=== PATIENT | male | born 1950 | race Caucasian/White ===

== ENCOUNTER 2020-04-28 16:58 | Emergency (ER) | payer MEDICARE, SELFPAY ==
--- NOTE | 2020-04-28 | XR_ITS ---
EXAMINATION: XR KNEE, LEFT CLINICAL INFORMATION: Pain status post knee injury COMPARISON: Radiographs of right knee 08/21/2014 TECHNIQUE: Four views of the left knee. FINDINGS: Generalized osteopenia is present. No acute fracture is seen. No significant joint space narrowing is seen. Small amount of degenerative changes present at the at the patellofemoral joint. No significant joint effusion is present. XR/XR knee LT 4V IMPRESSION: No acute injury left knee. Mild degenerative change in the patellofemoral compartment
[2020-04-28 18:02] VITALS: BP 168/90; PULSE 85; RESP 16; TEMP 36.7; O2SAT 97; BMI 29.1
--- NOTE | 2020-04-28 19:08 | ED.LOWEXIN ---
HPI - Extremity Injury (Lower) General Chief Complaint: Extremity Injury, Lower Stated Complaint: Knee Inj Time Seen by Provider: 04/28/20 18:16 Source: patient Mode of arrival: ambulatory Limitations: no limitations History of Present Illness HPI Narrative: patient presents to ED for left knee pain after falling onto knee a week ago. Patient states he tripped and hit his knee. Patient denies falling to the ground, hitting head, loss of consciousness, abdominal pain, rectal bleeding, bloody urine, chest pain, shortness of breath, dizziness, or weakness. Related Data Previous Rx's Medication Instructions Recorded ibuprofen 400 mg PO Q6H PRN #28 tab 04/28/20 Allergies Allergy/AdvReac Type Severity Reaction Status Date / Time No Known Allergies Allergy Verified 04/28/20 18:14 [No Known Allergies*] Review of Systems Review of Systems: Yes all other systems are reviewed and are negative Constitutional: Constitutional: Reports as per HPI and Reports no additional constitutional complaints Eyes: Eyes: Reports as per HPI and Reports no additional eye complaints ENT: Reports system reviewed and no additional complaints, except as documented and Reports as per HPI Cardiovascular: Cardiovascular: Reports as per HPI and Reports no additional cardiovascular complaints Respiratory: Respiratory: Reports as per HPI and Reports no additional respiratory complaints Gastrointestinal: Gastrointestinal: Reports as per HPI and Reports no additional gastrointestinal complaints Genitourinary: Genitourinary: Reports no additional male genitourinary complaints and Reports as per HPI Musculoskeletal: Musculoskeletal: Reports no additional musculoskeletal complaints and Reports as per HPI Comments: Left knee pain Neurologic: Reports system reviewed and no additional complaints, except as documented and Reports as per HPI Psychiatric: Psychiatric: Reports no additional psychiatric complaints and Reports as per HPI [facility] Past Medical History Medical History (Updated 04/28/20 @ 19:13 by CARRIE Pugh) Diabetes HTN (hypertension) Social History Social History Advance Directives: No Advance Directives Information Provided: No Physical Exam Vital Signs: Vital Signs: Last Vital Signs Temp 98.1 F 04/28/20 18:02 Pulse 85 04/28/20 18:02 Resp 16 04/28/20 18:02 BP 168/90 H 04/28/20 18:02 Pulse Ox 97 04/28/20 18:02 Body Mass Index 29.1 Const: General: cooperative, healthy appearing, comfortable, no acute distress and well developed Orientation/consciousness: oriented to person, oriented to place, oriented to time and patient oriented x3 HENMT: Head: Yes normal to inspection, Yes No palpable skull fracture present, Yes atraumatic, No abrasion, No Acrocyanosis present, No Akbar's sign, No contusion, No cranial bruits, No hematoma, No laceration, No occipital foramen tenderness, No palpable skull fracture, No raccoon eyes, No scalp tenderness, No Temporal artery tenderness present and No periorbital ecchymosis Eyes: General: appearance normal, both eyes and all related structures Visual Kemp: normal visual kemp by confrontation Neck: Neck: Yes normal visual inspection, Yes full ROM, Yes no lymphadenopathy, Yes no meningeal signs and No tender Chest: Chest palpation & inspection: normal inspection of the chest, normal palpation of entire chest wall and no localized rib tenderness Resp: Effort & Inspection: normal respiratory effort and able to speak in complete sentences Cardio: Jugular venous distension: no JVD Heart sounds: S1 normal heart sound present and S2 normal heart sound present GI: Inspection: Yes normal to inspection and No abdominal wall ecchymosis Palpation (GI): Soft to palpation, not firm, nontender, no guarding and not rigid : General: No CVA tenderness and Yes no CVA tenderness Back/Spine/Pelvis: Back: no CVA tenderness, No CVA tenderness and No back tenderness Skin: General skin exam: no rashes or lesions noted Neuro: General: oriented to person, oriented to place, oriented to time, patient oriented x3, gait normal, no meningeal signs and CN's II-XI intact bilaterally Cranial nerves: Yes CN's II-XII intact bilaterally Extrem: Other: positive for left knee tenderness on palpation. Negative for any swelling, redness, warmth, or deformity. Rest of bilateral lower extremities negative for any ecchymosis, tenderness. Vascular neuro and motor exam intact both lower extremities. Psych: Appearance: grossly normal, well kempt and not disheveled Course Course Course Narrative: Patient will have x-ray of left knee to rule out any dislocation or fracture although very likely due to patient walk on his own. Reevaluation(s) Reevaluation #1: X-ray negative for any fracture. X-ray shows arthritis. patient ready for discharge Time: 19:12 MDM - Extremity Injury (Lower) [facility] Narrative Medical decision making narrative: left knee contusion Discharge Plan Discharge Clinical Impression: Contusion of knee Patient Disposition: Home, Self-Care Instructions: Contusion in Adults (ED), Arthritis (ED) Additional Instructions: return to the ED for any swelling of lower extremity, redness, warmth, fever, chills, chest pain, shortness of breath, red streaks, numbness / tingling lower extremity, or any other concerning symptoms. Please follow-up with the PCP. please follow-up with your PCP Prescriptions: New ibuprofen 400 mg tablet 400 mg PO Q6H PRN (Reason: pain) Qty: 28 RF: 0 Interventions: ED Discharge Assessment Last Done: 04/28/20 20:13 Discharge Date/Time: 04/28/20 20:16 Print Language: Uzbek
[2020-04-28] MEDS: Ibuprofen 800 MG TABLET PO (19:14)
== END 2020-04-28 20:16 | disposition home or self-care (01) ==
PROVIDERS: Emergency Provider Internal Medicine
DX: S89.92XA Unspecified injury of left lower leg, initial encounter (principal); M25.562 Pain in left knee; W01.0XXA Fall on same level from slipping, tripping and stumbling without subsequent striking against object, initial encounter; Y93.9 Activity, unspecified; Y92.9 Unspecified place or not applicable; Y99.9 Unspecified external cause status
CPT/HCPCS: 73564; 99283

== ENCOUNTER 2020-05-13 08:25 | Outpatient (REF) | payer MEDICARE, SELFPAY ==
[2020-05-13 10:59] LABS: Vitamin D 25-OH Total 9.6 ng/mL (>30)
[2020-05-13 11:13] LABS: Folate 5.7 ng/mL (> or = 4.0); Vitamin B12 838 pg/mL (200-900)
== END 2020-05-13 08:26 | disposition home or self-care (01) ==
LOC: HO.10HDL 08:25
DX: D64.9 Anemia, unspecified (principal)
CPT/HCPCS: 82306; 82607; 82746

== ENCOUNTER 2020-07-17 07:29 | Emergency (ER) | payer MEDICARE, SELFPAY ==
[2020-07-17 07:49] VITALS: BP 178/70; PULSE 73; RESP 18; TEMP 36.5; O2SAT 96; BMI 29.9
--- NOTE | 2020-07-17 08:09 | XR_ITS ---
EXAMINATION: RADIOGRAPHS RIGHT HAND CLINICAL INFORMATION: Swelling and pain COMPARISON: Right hand x-rays 02/15/2019 TECHNIQUE: 4 views of the right hand were obtained. FINDINGS: There is diffuse osteopenia. Visualized portion of the distal radius and ulna demonstrate no fracture. Carpal rows are well aligned. No carpal, metacarpal or phalangeal fracture appreciated. There are mild to moderate degenerative changes of the first carpal metacarpal joint with moderate degenerative changes of the first and second MCP joints. Erosive changes are noted at the second MCP joint. There are mild diffuse degenerative changes of the IP joints. Mild soft tissue swelling of the lateral hand. XR/XR hand wrist RT IMPRESSION: -Dense diffuse osteopenia. -Moderate degenerative changes. -No fracture.
--- NOTE | 2020-07-17 08:09 | US_ITS ---
EXAMINATION: US VENOUS WITH DOPPLER UPPER EXTREMITY, RIGHT CLINICAL INFORMATION: Pain and swelling COMPARISON: None TECHNIQUE: Ultrasound of the upper extremity is performed using compression sonography and color and pulse Doppler flow with assessment of augmentation of flow. There is also imaging and Doppler assessment of the jugular and subclavian veins. Spectral analysis with color-flow imaging is performed. FINDINGS: Respiratory variation, normal compression, and augmented flow are noted throughout the upper extremity including the axillary, brachial, cubital, and radial and ulnar veins. There is normal flow in the internal jugular and subclavian veins. There is no visible deep or superficial thrombophlebitis. If the patient's symptoms progress, a followup ultrasound in 5 -7 days might be of value to exclude proximal propagation from a nonvisualized distal arm vein. US/US venous duplex UE RT IMPRESSION: No DVT demonstrated in the right upper extremity
--- NOTE | 2020-07-17 08:33 | ED_ITS ---
HPI - Extremity Problem General Chief complaint: Extremity Injury, Upper Stated complaint: r hand swelling Time Seen by Provider: 07/17/20 08:02 Source: patient Mode of arrival: ambulatory History of Present Illness HPI Narrative: 70-year-old male with a past medical history of diabetes, hypertension, DVT/PE, presenting to the ED complaining of right arm swelling since . Reports pain with ROM, and decreased ROM secondary to swelling. Reports associated tingling. Denies trauma/falls/injury, fever, chills, SOB, LE edema. Patient does not take anticoagulation MD Complaint: extremity swelling Related Data Previous Rx's Medication Instructions Recorded ibuprofen 400 mg PO Q6H PRN #28 tab 04/28/20 Allergies Allergy/AdvReac Type Severity Reaction Status Date / Time No Known Allergies Allergy Verified 04/28/20 18:14 [No Known Allergies*] Review of Systems Review of Systems: Constitutional: No Weight loss, No Fever, No Chills Cardiovascular: No Chest Pain, No SOB Respiratory: No Cough, No Sputum, No Wheezing Musculoskeletal: + joint pain, No Myalgias, +Joint Swelling Skin: No Skin Lesions, No rash Neuro: No Weakness,+tingling, No Paresthesias Yes all other systems are reviewed and are negative [facility] Past Medical History Attestation statement: The following information was validated with the patient. Medical History (Updated 07/17/20 @ 11:27 by CARRIE Arzate) Diabetes HTN (hypertension) Social History Social History Advance Directives: No Advance Directives Information Provided: No Physical Exam Vital Signs: Vital Signs: Last Vital Signs Temp 97.7 F 07/17/20 07:49 Pulse 73 07/17/20 07:49 Resp 18 07/17/20 07:49 BP 178/70 H 07/17/20 07:49 Pulse Ox 96 07/17/20 07:49 Body Mass Index 29.9 Const: General: cooperative and healthy appearing Orientation/consciousness: patient oriented x3 Limitations: no limitations HENMT: Head: Yes normal to inspection Ears: hearing grossly normal bilaterally General nose exam: Normal external nose present Face and sinus: Yes normal facial exam Eyes: General: appearance normal, both eyes and all related structures EOM: EOMs intact bilaterally Neck: Neck: Yes normal visual inspection and Yes no meningeal signs Resp: Effort & Inspection: normal respiratory effort, no stridor and not tachypneic Cardio: Rate: regular rate Peripheral pulses: radial pulses present Skin: Rashes: no rashes Wounds: no wounds Neuro: General: patient oriented x3 and no meningeal signs Gait exam (Neuro): Normal gait present Extrem: Other: RUE with notable edema. Warm to touch with ttp to wrist and hand. No erythema/streaking/fluctuance or induration. Neurovascularly intact. Range of motion decreased secondary to pain/swelling. Course Course Course Narrative: * No leukocytosis, H&H low at baseline. CRP and ESR elevated. XR hand wrist RT IMPRESSION: -Dense diffuse osteopenia. -Moderate degenerative changes. -No fracture. US venous duplex UE RT IMPRESSION: No DVT demonstrated in the right upper extremity * 0950 -case discussed with Dr. Braswell who evaluated patient. Will obtain CTA of the chest to rule out axillary vein thrombosis or mass effect causing lymphedema CT angio chest IMPRESSION: 1. No evidence of any right axillary or superior mediastinal soft tissue mass. Suboptimal evaluation for presence or absence of right axillary vein thrombosis due to nonopacification of the right upper extremity visualized veins. 2. Suboptimal evaluation for presence or absence of pulmonary thromboembolism due to missed bolus timing. 3. Multiple multilobar sub-5 mm both calcified as well as noncalcified scattered lung nodules are present bilaterally, most consistent with granulomatous disease. 4. Asymmetric elevated right hemidiaphragm producing compressive atelectatic changes within the right lung base. Note is also made of anterior superior interposition of the right sided hemicolon between the liver and the diaphragm and surgically absent gallbladder. 5. Large approximately 9.5 cm simple appearing cortical renal cyst at the superior pole of the left kidney. >> results discussed with patient. Will initiate short course of steroids and outpatient follow-up with PCP MDM - Extremity (Nontraumatic) MDM Narrative Medical decision making narrative: 70-year-old male with a past medical history of diabetes, hypertension, DVT/PE, presenting to the ED complaining of right arm swelling since . On exam VSS, NAD/well-appearing, physical exam as above. Concern for occult fracture vs DVT vs edema or venous compression. Lower concern for septic joint/arthritis without joint effusion/fever/chills or erythema. Plan: Labs, x-ray, venous duplex, re-evaluate Lab Data Result diagrams: 07/17/20 08:28 07/17/20 08:28 Labs: Lab Results 07/17/20 07/17/20 07/17/20 Range/Units 08:28 08:28 08:28 WBC 6.9 (4.8-10.8) X10*3/uL RBC 3.33 L (4.60-5.80) X10*6/uL Hgb 9.9 L (14.0-18.0) g/dl Hct 31.0 L (42-52) % MCV 93.1 (80-98) fL MCH 29.7 (27.0-33.0) pg MCHC 31.9 (31.0-36.0) g/dl RDW 12.8 (11.0-16.0) % Plt Count 237 (160-400) X10*3/uL MPV 12.3 (9.4-12.4) fL Immature Gran % (Auto) 0.4 (0.0-0.4) % Neut % (Auto) 77.2 H (45-73) % Lymph % (Auto) 12.7 L (20-40) % [place] % (Auto) 8.8 (2-11) % Eos % (Auto) 0.3 (0-4) % Baso % (Auto) 0.6 (0-2) % Lymph # (Auto) 0.9 L (1.2-4.9) X10*3/uL [place] # (Auto) 0.6 (0.1-1.2) X10*3/uL Eos # (Auto) 0.0 (0.0-0.4) X10*3/uL Baso # (Auto) 0.0 (0.0-0.2) X10*3/uL Abs Immat Gran (auto) 0.03 (0.00-0.03) X10*3/uL Absolute Neuts (auto) 5.3 (2.0-8.3) X10*3/uL Absolute Nucleated RBC 0.000 (0.0-0.012) X10*3/uL Nucleated RBC % (auto) 0.0 (0.0-0.2) /100WBC ESR 72 H (0-15) MM/HR PT (10.8-13.0) SEC INR (0.9-1.1) APTT (24.1-38.0) SEC Sodium 143 (135-145) mmol/L Potassium 4.1 (3.3-5.1) mmol/l Chloride 109 H (96-108) mmol/L Carbon Dioxide 21 L (22-29) mmol/L Anion Gap 17 (12-20) BUN 22 H (9-16) mg/dL Creatinine 1.11 (0.5-1.4) mg/dL Estim Creat Clear Calc 72.6 Estimated GFR > 60 Random Glucose 138 H (60-115) mg/dL Calcium 8.5 (8.4-10.2) mg/dL C-Reactive Protein 7.36 H (< or = 0.50) mg/dL B-Natriuretic Peptide (<100) pg/mL 07/17/20 07/17/20 Range/Units 08:28 08:29 WBC (4.8-10.8) X10*3/uL RBC (4.60-5.80) X10*6/uL Hgb (14.0-18.0) g/dl Hct (42-52) % MCV (80-98) fL MCH (27.0-33.0) pg MCHC (31.0-36.0) g/dl RDW (11.0-16.0) % Plt Count (160-400) X10*3/uL MPV (9.4-12.4) fL Immature Gran % (Auto) (0.0-0.4) % Neut % (Auto) (45-73) % Lymph % (Auto) (20-40) % [place] % (Auto) (2-11) % Eos % (Auto) (0-4) % Baso % (Auto) (0-2) % Lymph # (Auto) (1.2-4.9) X10*3/uL [place] # (Auto) (0.1-1.2) X10*3/uL Eos # (Auto) (0.0-0.4) X10*3/uL Baso # (Auto) (0.0-0.2) X10*3/uL Abs Immat Gran (auto) (0.00-0.03) X10*3/uL Absolute Neuts (auto) (2.0-8.3) X10*3/uL Absolute Nucleated RBC (0.0-0.012) X10*3/uL Nucleated RBC % (auto) (0.0-0.2) /100WBC ESR (0-15) MM/HR PT 16.4 H (10.8-13.0) SEC INR 1.4 H (0.9-1.1) APTT 38.9 H (24.1-38.0) SEC Sodium (135-145) mmol/L Potassium (3.3-5.1) mmol/l Chloride (96-108) mmol/L Carbon Dioxide (22-29) mmol/L Anion Gap (12-20) BUN (9-16) mg/dL Creatinine (0.5-1.4) mg/dL Estim Creat Clear Calc Estimated GFR Random Glucose (60-115) mg/dL Calcium (8.4-10.2) mg/dL C-Reactive Protein (< or = 0.50) mg/dL B-Natriuretic Peptide 39 (<100) pg/mL Discharge Plan Discharge Clinical Impression: Arm edema Patient Disposition: Home, Self-Care Instructions: Edema (ED) Additional Instructions: Blood work showed elevation in nonspecific inflammatory markers Your and CT did not show anything concerning. Start taking prednisone as prescribed which will help with the swelling. You need to have close follow-up with her primary care doctor in the next 1-2 days. If the swelling persists or worsen, pain becomes unbearable, your arm becomes red, or you spike fevers return to the ED immediately Prescriptions: No Action ibuprofen 400 mg tablet 400 mg PO Q6H PRN (Reason: pain) Qty: 28 RF: 0 Referrals: Physician,None [Primary Care Provider] - 2 days
[2020-07-17 08:42] LABS: MANUAL DIFF FLAG NO
[2020-07-17 08:43] LABS: Basophils Percent Auto 0.6 % (0-2); Eosinophils Percent Auto 0.3 % (0-4); Hemoglobin 9.9 g/dl (14.0-18.0); Imm Gran Abs Auto 0.03 X10*3/uL (0.00-0.03); Imm Gran Pct Auto 0.4 % (0.0-0.4); Lymphocytes Absolute Auto 0.9 X10*3/uL (1.2-4.9); Lymphocytes Percent Auto 12.7 % (20-40); Mean Corpuscular HGB Conc 31.9 g/dl (31.0-36.0); Mean Corpuscular Hemoglobin 29.7 pg (27.0-33.0); Mean Corpuscular Volume 93.1 fL (80-98); Mean Platelet Volume 12.3 fL (9.4-12.4); Monocytes Absolute Auto 0.6 X10*3/uL (0.1-1.2); Monocytes Percent Auto 8.8 % (2-11); Neutrophils Absolute Auto 5.3 X10*3/uL (2.0-8.3); Neutrophils Percent Auto 77.2 % (45-73); Platelet Count 237 X10*3/uL (160-400); Red Blood Count 3.33 X10*6/uL (4.60-5.80); Red Cell Distribution Width 12.8 % (11.0-16.0); White Blood Count 6.9 X10*3/uL (4.8-10.8)
[2020-07-17 08:51] LABS: INTERNATIONAL NORM RATIO 1.4 (0.9-1.1); Prothrombin Time 16.4 SEC (10.8-13.0)
[2020-07-17 08:54] LABS: Partial Thromboplastin Time 38.9 SEC (24.1-38.0)
[2020-07-17 09:02] LABS: Anion Gap 17 (12-20); Blood Urea Nitrogen 22 mg/dL (9-16); C Reactive Protein 7.36 mg/dL (< or = 0.50); Calcium 8.5 mg/dL (8.4-10.2); Carbon Dioxide 21 mmol/L (22-29); Chloride 109 mmol/L (96-108); Creatinine Clr Calc Pharmacy 72.6; Estimated Glomerular Filt Rate > 60; Glucose Random 138 mg/dL (60-115); Potassium 4.1 mmol/l (3.3-5.1); Sodium 143 mmol/L (135-145)
[2020-07-17 09:22] LABS: B Type Natriuretic Peptide 39 pg/mL (<100)
[2020-07-17 09:40] LABS: Erythrocyte Sedimentation Rate 72 MM/HR (0-15)
--- NOTE | 2020-07-17 09:47 | CT_ITS ---
EXAMINATION: CT ANGIOGRAM CHEST CLINICAL INFORMATION: Right upper extremity pain and swelling. Suspected right axillary vein thrombosis. COMPARISON: Right upper extremity DVT study done earlier today. TECHNIQUE: Multiple axial images were obtained through the chest after the administration of 70 mL of Omnipaque 350 intravenous contrast. Extensive vascular post-processing including two-dimensional and three-dimensional reformatted images were created and reviewed on an independent workstation. This CT examination was performed using dose optimization techniques as appropriate, variously including the following: *Automated exposure control *Adjustment of mA and/or kV according to patient size (this includes techniques or standardized protocols for targeted exams where dose is matched to indication/reason for exam; i.e. extremities or head) *Use of iterative reconstruction technique DLP: 485.21 mGy-cm FINDINGS: There are multiple multilobar sub-5 mm both calcific as well as noncalcified lung nodules seen bilaterally, most consistent with granulomatous disease. Asymmetric elevated right hemidiaphragm is noted producing compressive atelectatic changes within the right lung base. No evidence of any mediastinal or right axillary mass identified. Presence or absence of right axillary vein thrombus cannot be evaluated due to suboptimal opacification of the visualized part of the right upper extremity venous tree. Contrast was injected through left upper extremity. Presence or absence of pulmonary thromboembolism is also indeterminate due to suboptimal bolus timing. Atherosclerotic disease is present within the aorta and is branches including coronary artery calcifications. There are no pathologically enlarged mediastinal and/or hilar lymphadenopathy present. No evidence of any pleural or pericardial effusion seen. No evidence of any axillary lymphadenopathy or axillary mass on either side. The visualized upper abdomen is remarkable for anterior superior interposition of the right-sided hemicolon between the liver and the diaphragm and surgically absent gallbladder. Lobulated large cyst is noted within the superior pole of the left kidney, measures approximately 9.5 cm with Hounsfield value of 2.3. The visualized skeleton shows moderate multilevel degenerative spondylosis of the thoracic spine and mild to moderate diffuse osteopenia. CT/CT angio chest IMPRESSION: 1. No evidence of any right axillary or superior mediastinal soft tissue mass. Suboptimal evaluation for presence or absence of right axillary vein thrombosis due to nonopacification of the right upper extremity visualized veins. 2. Suboptimal evaluation for presence or absence of pulmonary thromboembolism due to missed bolus timing. 3. Multiple multilobar sub-5 mm both calcified as well as noncalcified scattered lung nodules are present bilaterally, most consistent with granulomatous disease. 4. Asymmetric elevated right hemidiaphragm producing compressive atelectatic changes within the right lung base. Note is also made of anterior superior interposition of the right sided hemicolon between the liver and the diaphragm and surgically absent gallbladder. 5. Large approximately 9.5 cm simple appearing cortical renal cyst at the superior pole of the left kidney.
[2020-07-17] MEDS: iohexoL 350 MG/ML 100 ML INFUS..BTL IV (10:45)
[2020-07-17] MEDS: predniSONE 20 MG TABLET 40 MG PO (12:04)
== END 2020-07-17 12:12 | disposition home or self-care (01) ==
PROVIDERS: Physician Assistant; Emergency Provider Internal Medicine
DX: M79.641 Pain in right hand (principal); R60.0 Localized edema; Z79.899 Other long term (current) drug therapy
CPT/HCPCS: 36415; 71275; 73110; 73130; 80048; 83880; 85025; 85610; 85652; 85730; 86140; 93971; 99283; 99284; Q9967

== ENCOUNTER 2020-09-15 16:35 | Inpatient (IN) | payer MEDICARE, SELFPAY ==
[2020-09-15] VITALS (7 sets, daily range): BP systolic 159–178; BP diastolic 60–73; PULSE 73–96; RESP 14–22; TEMP 36.9–38.2; O2SAT 93–95; BMI 28.4
--- NOTE | ~2020-09-15 | US_ITS ---
EXAMINATION: US VENOUS ULTRASOUND WITH DOPPLER LOWER EXTREMITY, BILATERAL CLINICAL INFORMATION: Bilateral lower extremity edema. Question DVT. History of prior DVT. COMPARISON: None TECHNIQUE: Ultrasound of the deep veins is performed from the hip to the calf with compression sonography and color and pulse Doppler assessment. Spectral analysis with color-flow imaging is performed. FINDINGS: RIGHT: There is normal venous compression and respiratory variation and augmented flow. The visualized common femoral vein, superficial femoral vein, profunda femoral vein, popliteal vein, and the trifurcation region shows no evidence of deep venous thrombosis. There is a popliteal fossa cyst which measures 4.9 x 2.5 x 4 cm. Peroneal veins are not seen due to calf edema. LEFT: There is normal venous compression and respiratory variation and augmented flow. The visualized common femoral vein, superficial femoral vein, profunda femoral vein, popliteal vein, and the trifurcation region shows no evidence of deep venous thrombosis. There is no significant popliteal fossa cyst. Peroneal veins are not identified due to calf edema. If the patient's symptoms persist, followup ultrasound in 5 days 7 days might be of value to exclude proximal propagation from a non-visualized calf vein. US/US venous duplex LE BI IMPRESSION: No DVT demonstrated in the bilateral lower extremities.
--- NOTE | ~2020-09-15 | CT_ITS ---
EXAMINATION: CT HEAD WITHOUT CONTRAST CLINICAL INFORMATION: Dizziness. Cough. COMPARISON: CT head 05/03/2011 TECHNIQUE: Contiguous axial imaging was performed from the skull base to vertex without intravenous administration of contrast. Coronal and sagittal reformatted images are performed at the CT scanner. [This CT examination was performed using dose optimization techniques as appropriate, variously including the following: *Automated exposure control *Adjustment of mA and/or kV according to patient size (this includes techniques or standardized protocols for targeted exams where dose is matched to indication/reason for exam; i.e. extremities or head) *Use of iterative reconstruction technique] DLP: 746 mGy-cm. FINDINGS: There is no evidence of acute intracranial hemorrhage or territorial infarction. No abnormal mass-effect or midline shift is seen. Brown to white matter differentiation is well preserved. No extra-axial fluid collections are identified. There is age-appropriate atrophy with prominence of the ventricles and the sulci and hypodensity of the periventricular white matter due to chronic small vessel ischemic disease. There are vascular calcifications of the internal carotid arteries bilaterally. There is no osseous abnormality. The sphenoid sinus is entirely opacified. This has progressed since CAT scan 05/03/2011. There are faint calcifications in the sphenoid sinus indicating chronic sinus disease including possibility of fungal infection. There is a small air-fluid level in the dependent left maxillary sinus. The mastoid air cells and middle ear cavities are normally aerated. CT/CT head/brain wo con IMPRESSION: 1. No acute intracranial abnormality. 2. Chronic sinus disease in sphenoid sinus. Air-fluid level in the left maxillary sinus.
--- NOTE | ~2020-09-15 | CT_ITS ---
EXAMINATION: CT ANGIOGRAM OF THE CHEST WITH AND WITHOUT CONTRAST (CT PULMONARY ANGIOGRAM FOR PE) CLINICAL INFORMATION: Reason for Exam pt c dizziness and cough + covid COMPARISON: None TECHNIQUE: Prior to contrast administration, noncontrast localization images were obtained. Subsequently, multidetector volumetric imaging was performed from the thoracic inlet to below the diaphragms following the administration of 71 mL Omnipaque 350 intravenous contrast. No contrast reaction reported Sagittal, coronal, and MIP oblique sagittal reformatted images were obtained on the CT workstation, uploaded to PACS, and reviewed. This CT examination was performed using dose optimization techniques as appropriate, variously including the following: *Automated exposure control *Adjustment of mA and/or kV according to patient size (this includes techniques or standardized protocols for targeted exams where dose is matched to indication/reason for exam; i.e. extremities or head) *Use of iterative reconstruction technique Total exam dose-length product 448 mGy-cm FINDINGS: QUALITY OF STUDY/CONTRAST BOLUS: Satisfactory. PULMONARY ARTERIES: No central or segmental pulmonary emboli. THORACIC AORTA: No aneurysm or dissection. LUNG: The lungs are well expanded with elevation of right hemidiaphragm and right basilar atelectasis. PLEURA: No pleural effusion or pneumothorax. MEDIASTINUM: The thyroid lobes are symmetrical and normal. The central trachea and bronchi are widely patent. No evidence of septal bowing or right heart strain. CHEST WALL/AXILLA: No axillary or internal mammary lymphadenopathy. OSSEOUS STRUCTURES: There is no lytic or sclerotic process. There is ventral spondylosis throughout dorsal spine. UPPER ABDOMEN: Visualized liver, spleen and pancreas is unremarkable. No reflux of contrast into the hepatic veins to suggest elevated right heart pressures. CT/CT angio chest PE protocol IMPRESSION: No evidence of PE. There is no evidence of aortic dissection or aneurysm. Elevated right hemidiaphragm with right basilar atelectasis VTE: negative
[2020-09-15 17:13] LABS: Basophils Percent Auto 0.3 % (0-2); Hematocrit 32.7 % (42-52); Hemoglobin 10.5 g/dl (14.0-18.0); Imm Gran Abs Auto 0.01 X10*3/uL (0.00-0.03); Imm Gran Pct Auto 0.3 % (0.0-0.4); Lymphocytes Absolute Auto 0.6 X10*3/uL (1.2-4.9); Lymphocytes Percent Auto 16.7 % (20-40); MANUAL DIFF FLAG SCAN; Mean Corpuscular HGB Conc 32.1 g/dl (31.0-36.0); Mean Corpuscular Hemoglobin 29.7 pg (27.0-33.0); Mean Corpuscular Volume 92.4 fL (80-98); Mean Platelet Volume 12.9 fL (9.4-12.4); Monocytes Absolute Auto 0.4 X10*3/uL (0.1-1.2); Monocytes Percent Auto 9.9 % (2-11); Neutrophils Absolute Auto 2.6 X10*3/uL (2.0-8.3); Neutrophils Percent Auto 72.8 % (45-73); Platelet Count 110 X10*3/uL (160-400); Red Blood Count 3.54 X10*6/uL (4.60-5.80); Red Cell Distribution Width 13.8 % (11.0-16.0); SCAN SMEAR FLAG 1; White Blood Count 3.5 X10*3/uL (4.8-10.8)
[2020-09-15 17:28] LABS: COVID-19 Test Positive (Negative)
--- NOTE | 2020-09-15 17:30 | ECG_ITS ---
Test Reason : DIZZINESS Blood Pressure : / mmHG Vent. Rate : 074 BPM Atrial Rate : 074 BPM P-R Int : 182 ms QRS Dur : 092 ms QT Int : 398 ms P-R-T Axes : 028 -08 046 degrees QTc Int : 441 ms Normal sinus rhythm Minimal voltage criteria for LVH, may be normal variant Nonspecific ST abnormality Abnormal ECG When compared with ECG of 03-OCT-2013 07:36, No significant change was found Referred By: Rosalinda Burrell Electronically Signed By:ABEL MCCARTNEY
[2020-09-15 17:35] LABS: SLIDE REVIEW VERIFIED
[2020-09-15 17:36] LABS: Anion Gap 18 (12-20); Blood Urea Nitrogen 22 mg/dL (9-16); Calcium 8.1 mg/dL (8.4-10.2); Carbon Dioxide 21 mmol/L (22-29); Chloride 107 mmol/L (96-108); Creatinine Clr Calc Pharmacy 70.4; Estimated Glomerular Filt Rate > 60; Glucose Random 130 mg/dL (60-115); Potassium 4.3 mmol/L (3.3-5.1); Sodium 142 mmol/L (135-145)
[2020-09-15 17:44] LABS: INTERNATIONAL NORM RATIO 1.1 (0.9-1.1); Prothrombin Time 13.4 SEC (10.8-13.0)
[2020-09-15 17:47] LABS: Partial Thromboplastin Time 36.7 SEC (24.1-38.0)
[2020-09-15 17:58] LABS: Alanine Aminotransferase 11 U/L (0-40); Alkaline Phosphatase 61 U/L (39-117); Aspartate Amino Transferase 21 U/L (5-37); Bilirubin Direct < 0.2 mg/dL (0.0-0.5); Bilirubin Total 0.2 mg/dL (0.0-1.0); C Reactive Protein 1.42 mg/dL (< or = 0.50); Lactate Dehydrogenase 194 U/L (118-273); Total Protein 6.6 g/dL (6.5-8.0)
[2020-09-15 18:15] LABS: B Type Natriuretic Peptide 40 pg/mL (<100)
--- NOTE | 2020-09-15 18:18 | ED.URI ---
HPI - URI/Sore Throat General Chief Complaint: Upper Respiratory Symptoms Stated Complaint: Fever/SOB Time Seen by Provider: 09/15/20 17:10 Source: patient Mode of arrival: ambulatory Limitations: no limitations History of Present Illness HPI Narrative: 70-year-old male with a past medical history of diabetes, hypertension, PE/DVT in bilateral lower extremity in the past currently on a baby aspirin no other blood thinner, pulmonary granuloma, anemia and chronic weakness/lymphedema of left lower extremity to the ED with complaints of chills, fevers up to 101 at home, dizziness, body aches, sore throat and a dry cough for the past 3 days. Reports that he lives with his nephew his nephew does not have any similar symptoms. Denies recent travel or any sick contacts that he is aware of. Denies any headache, change in vision, nausea/vomiting, jaw pain, paresthesias, chest pain, shortness of breath, dyspnea on exertion, orthopnea, palpitations, abdominal pain, back pain, dysuria, hematuria, diarrhea, constipation or any other symptoms complaints or concerns at this time. MD elicited complaint: cough Onset (ago): day(s) (Three days) Consistency: constant and progressively worsening Severity: moderate Able to tolerate fluids by mouth: Yes Exacerbating factors: nothing Relieving factors: nothing Associated symptoms: fever, chills, myalgias, sore throat and cough Treatments prior to arrival: none Related Data Home Medications Medication Instructions Recorded Confirmed aspirin 81 mg tablet,delayed 81 mg PO DAILY 08/04/20 08/04/20 release ferrous sulfate 325 mg (65 mg 325 mg PO BID 08/04/20 08/04/20 iron) tablet furosemide 40 mg tablet 40 mg PO BID 08/04/20 08/04/20 lisinopril 20 mg tablet 20 mg PO DAILY 08/04/20 08/04/20 Previous Rx's Medication Instructions Recorded ibuprofen 400 mg PO Q6H PRN #28 tab 04/28/20 atenolol 25 mg tablet 25 mg PO DAILY 90 Days #90 tab 08/04/20 pravastatin 20 mg tablet 20 mg PO DAILY 90 Days #90 tab 08/04/20 mecobalamin (vitamin B12) 1,000 1,000 mcg PO DAILY #90 tab 08/16/20 mcg chewable tablet potassium chloride 8 mEq 8 meq PO DAILY 30 Days #30 tab 08/16/20 tablet,extended release metformin 500 mg tablet,extended 500 mg PO QID #360 tab 08/18/20 release 24 hr Allergies Allergy/AdvReac Type Severity Reaction Status Date / Time No Known Allergies Allergy Verified 08/04/20 20:40 [No Known Allergies*] Review of Systems Review of Systems: Constitutional : + Fever, + Chills, + malaise, + Fatigue, No Weight loss, No Night Sweats ENT/Mouth : + Sore throat, No Hearing loss, No Ear Pain, No Nasal Congestion, No Sinus Pain, No Hoarseness, No Rhinorrhea, No Swallowing Difficulty Eyes: No Eye Pain, No Swelling, No Redness, No Foreign Body, No Discharge, No Vision Changes Cardiovascular : No Chest Pain, No SOB, No Dyspnea on Exertion, No Orthopnea, No Edema, No Palpitations Respiratory : + Cough, No Sputum, No Wheezing, No Smoke Exposure, No Dyspnea Gastrointestinal : No Nausea, No Vomiting, No Diarrhea, No Constipation, No abdominal Pain, No Hematochezia, No Melena Genitourinary : no irregular bleeding, No Dysuria, No Urinary Frequency, No Hematuria, No Urinary Incontinence, No Urgency, No Flank Pain, No Urinary Flow Changes, No Hesitancy Musculoskeletal : + Myalgias, No Joint Swelling/pain. No neck pain/stiffness, No back pain Skin : No Skin Lesions, No rash Neuro : + Dizziness, No Weakness, No Numbness, No Paresthesias, No Loss of Consciousness, No Headache Psych : No Anxiety/Panic, No Depression, No SI/HI/AH/VH, No Social Issues, Heme/Lymph: No Bruising, No Bleeding,No Lymphadenopathy Endocrine : No Polyuria, No Polydipsia, No Temperature Intolerance Yes all other systems are reviewed and are negative [facility] Past Medical History Attestation statement: The following information was validated with the patient. Medical History Anemia Benign essential hypertension Diabetes mellitus HTN (hypertension) Overweight (BMI 25.0-29.9) Pulmonary granuloma Pure hypercholesterolemia Social History Social History Alcohol intake: never Smoking Status: Never smoker Advance Directives: No Advance Directives Information Provided: Yes Physical Exam Vital Signs: Vital Signs: Last Vital Signs Temp 100.4 F 09/15/20 20:42 Pulse 79 09/15/20 20:42 Resp 22 H 09/15/20 20:42 BP 163/60 H 09/15/20 20:42 Pulse Ox 94 09/15/20 20:42 Body Mass Index 28.4 Vital signs have been reviewed as normal and appeared to be correct. Blood pressure normal. Heart rate normal. Respiration rate normal. Temperature normal. Oxygen saturation normal. Appearance: Alert. Oriented X3. No acute distress. Head: Normal external exam. Normocephalic. Atraumatic. Able to rotate head bilaterally. Eyes: PERRLA. EOMI. No nystagmus noted. Conjunctiva and sclera normal. Eyelids normal. Corneal reflex normal. ENT: EAC normal. TM's Normal. Hearing normal. Pharynx normal. Uvula midline. tongue midline. Moist mucous membranes. No trismus noted. No drooling noted. No muffled voice noted. No nystagmus noted. Neck: Normal inspection. Neck supple. FROM. No adenopathy. Trachea midline. Thyroid Normal. No meningeal signs. No neck mass noted. CVS: Normal heart rate and rhythm. Heart sound normal. No murmurs noted. Pulses normal throughout. Respiratory: No respiratory distress. Painless inspiration. Breath sounds normal. No wheezes/rales/rhonchi noted. Chest nontender. No accessory muscle usage noted or decreased air movement noted. Abdomen: Soft and nontender. Bowel sounds normal in all 4 quadrants. No distention noted. No organomegaly noted. No visible injury noted. Back: No CVA tenderness. Full range of motion noted. Skin: Skin warm and dry. Normal skin color. Normal skin turgor. No rashes/lesions/lacerations noted. Extremities: No lower extremity edema. Extremities exhibit normal range of motion. Extremities nontender. Able to shrug shoulders bilaterally and keep up against resistance. Neuro: Oriented X 3. No motor deficit. No sensory deficit. Reflexes normal. Moving all extremities. No focal motor deficits. Cranial nerves II-XI intact bilaterally. Facial strength normal. Normal cognition. Speech normal. Gait normal with his cane. To left lower extremity patient has chronic mild weakness otherwise all other extremities all other extremities Strength are 5/5 throughout. No pronator drift. No tremor noted. No fasciculations noted. No rigidity noted. Muscle tone normal throughout. No asterixis noted. Sfliqw-fl-socd test normal. Heel to espinosa test normal. Tandem gait normal. Does not sway with eyes open. Romberg test negative. Rapid alternating movement upper extremity normal. Rapid alternating movement lower extremity normal. Hand drop from overhead Misses face. NIHSS score 0. Course Course Course Narrative: 16:50pm - 70-year-old male with a past medical history of diabetes, hypertension, PE/DVT in bilateral lower extremity in the past currently on a baby aspirin no other blood thinner, pulmonary granuloma, anemia and chronic weakness/lymphedema of left lower extremity to the ED with complaints of chills, fevers up to 101 at home, dizziness, body aches, sore throat and a dry cough for the past 3 days. - On exam patient is alert and oriented x3. Not in any acute distress. Patient mildly hypertensive at 163/68 otherwise all other vitals are within normal limits. Patient has chronic left lower extremity weakness/lymphadenopathy no other weakness or focal neuro deficits are noted at this time. Patient has a normal steady gait with his cane. NIH SS score is 0 at this time due to patient reports his left lower extremity is always weak and is at baseline at this time. No tPA indicated at this time as patient has non disabling symptoms and his symptoms started 3 days ago. Lungs clear to auscultation. CV RRR. Abdomen is soft and nontender. Patient with pitting edema to bilateral lower extremity/lymphedema noted with erythema possibly cellulitic infection versus venous stasis. No calf tenderness noted. - Plan: Labs, chest x-ray, EKG, CT scan of brain, CTA of chest for PE, bilateral venous duplex ultrasound, orthostatic vitals, COVID swab, perform an ambulating pulse oximetry test and re-evaluate. Reevaluation(s) Reevaluation #1: - white blood cell count 3000 - patient with mild anemia similar when compared to prior. - platelet count 110,000 - carbon dioxide 21 - BUN 22 - random glucose 130 - ferritin 315 - troponin 8.9 therefore will re obtained in 3 hours from 1 collected at 20:00pm - CRP 1.42 - patient positive for COVID. - all other labs are within normal limits. - CT scan of brain revealed chronic changes no acute processes noted. - awaiting venous duplex ultrasound, CTA of chest for PE and repeat troponin will re-evaluate. Time: 18:50 Reevaluation #2: - repeat troponin doubled at 13.8. - CTA of chest for PE negative. - venous duplex lower extremity ultrasound negative for any DVT or any other acute processes. - patient now developed a fever of 100.4 and mild tachypneic at 22 otherwise all other vitals remained stable within normal limits. Will obtain blood cultures and lactic acid. This is most likely viral due to patient is positive for COVID although on exam patient has lower extremity erythema which could be cellulitic therefore will give 1 g of Rocephin at this time since the patient is developing a fever and tachypnea. - will plan to admit to Dr. Jean for pancytopenia, elevated troponin, COVID positive. Patient understands agrees with this plan. Time: 21:57 MDM - URI/Sore Throat Medical Records Attestation: I reviewed the patient's medical records. Lab Data Attestation: I reviewed the patient's lab results. Result diagrams: 09/15/20 17:00 09/15/20 17:00 Labs: Lab Results 09/15/20 09/15/20 09/15/20 Range/Units 16:40 17:00 17:00 WBC (4.8-10.8) X10*3/uL RBC (4.60-5.80) X10*6/uL Hgb (14.0-18.0) g/dl Hct (42-52) % MCV (80-98) fL MCH (27.0-33.0) pg MCHC (31.0-36.0) g/dl RDW (11.0-16.0) % Plt Count (160-400) X10*3/uL MPV (9.4-12.4) fL Immature Gran % (Auto) (0.0-0.4) % Neut % (Auto) (45-73) % Lymph % (Auto) (20-40) % [place] % (Auto) (2-11) % Eos % (Auto) (0-4) % Baso % (Auto) (0-2) % Lymph # (Auto) (1.2-4.9) X10*3/uL [place] # (Auto) (0.1-1.2) X10*3/uL Eos # (Auto) (0.0-0.4) X10*3/uL Baso # (Auto) (0.0-0.2) X10*3/uL Abs Immat Gran (auto) (0.00-0.03) X10*3/uL Absolute Neuts (auto) (2.0-8.3) X10*3/uL Absolute Nucleated RBC (0.0-0.012) X10*3/uL Nucleated RBC % (auto) (0.0-0.2) /100WBC Smear Tech's Comments PT 13.4 H (10.8-13.0) SEC INR 1.1 (0.9-1.1) APTT 36.7 (24.1-38.0) SEC Hold Blue Top SEE NOTE Sodium 142 (135-145) mmol/L Potassium 4.3 (3.3-5.1) mmol/L Chloride 107 (96-108) mmol/L Carbon Dioxide 21 L (22-29) mmol/L Anion Gap 18 (12-20) BUN 22 H (9-16) mg/dL Creatinine 1.15 (0.5-1.4) mg/dL Estim Creat Clear Calc 70.4 Estimated GFR > 60 Random Glucose 130 H (60-115) mg/dL Calcium 8.1 L (8.4-10.2) mg/dL Ferritin 315 H (20-250) ng/mL Total Bilirubin 0.2 (0.0-1.0) mg/dL Direct Bilirubin < 0.2 (0.0-0.5) mg/dL AST 21 (5-37) U/L ALT 11 (0-40) U/L Alkaline Phosphatase 61 (39-117) U/L Lactate Dehydrogenase 194 (118-273) U/L Troponin I High Sens (<3.5-35.0) ng/L C-Reactive Protein 1.42 H (< or = 0.50) mg/dL B-Natriuretic Peptide (<100) pg/mL Total Protein 6.6 (6.5-8.0) g/dL Albumin 4.0 (3.5-5.0) g/dL Procalcitonin ng/mL Urine Color Urine Appearance Urine pH (5.0-8.0) Ur Specific [place] (1.005-1.025) Urine Protein (NEG-TRACE) MG/DL Urine Glucose (UA) (NEG) MG/DL Urine Ketones (NEG) MG/DL Urine Blood (NEG) Urine Nitrite (NEG) Ur Leukocyte Esterase (NEG) Urine RBC (0) /HPF Urine WBC (0-4) /HPF Ur Squamous Epith Cells /LPF Urine Bacteria /LPF Urine Mucus /LPF COVID-19 (LB) Positive A (Negative) COVID-19 Clin Com See Note 09/15/20 09/15/20 09/15/20 Range/Units 17:00 17:00 17:00 WBC 3.5 L (4.8-10.8) X10*3/uL RBC 3.54 L (4.60-5.80) X10*6/uL Hgb 10.5 L (14.0-18.0) g/dl Hct 32.7 L (42-52) % MCV 92.4 (80-98) fL MCH 29.7 (27.0-33.0) pg MCHC 32.1 (31.0-36.0) g/dl RDW 13.8 (11.0-16.0) % Plt Count 110 L D (160-400) X10*3/uL MPV 12.9 H (9.4-12.4) fL Immature Gran % (Auto) 0.3 (0.0-0.4) % Neut % (Auto) 72.8 (45-73) % Lymph % (Auto) 16.7 L (20-40) % [place] % (Auto) 9.9 (2-11) % Eos % (Auto) 0.0 (0-4) % Baso % (Auto) 0.3 (0-2) % Lymph # (Auto) 0.6 L (1.2-4.9) X10*3/uL [place] # (Auto) 0.4 (0.1-1.2) X10*3/uL Eos # (Auto) 0.0 (0.0-0.4) X10*3/uL Baso # (Auto) 0.0 (0.0-0.2) X10*3/uL Abs Immat Gran (auto) 0.01 (0.00-0.03) X10*3/uL Absolute Neuts (auto) 2.6 (2.0-8.3) X10*3/uL Absolute Nucleated RBC 0.000 (0.0-0.012) X10*3/uL Nucleated RBC % (auto) 0.0 (0.0-0.2) /100WBC Smear Tech's Comments VERIFIED PT (10.8-13.0) SEC INR (0.9-1.1) APTT (24.1-38.0) SEC Hold Blue Top Sodium (135-145) mmol/L Potassium (3.3-5.1) mmol/L Chloride (96-108) mmol/L Carbon Dioxide (22-29) mmol/L Anion Gap (12-20) BUN (9-16) mg/dL Creatinine (0.5-1.4) mg/dL Estim Creat Clear Calc Estimated GFR Random Glucose (60-115) mg/dL Calcium (8.4-10.2) mg/dL Ferritin (20-250) ng/mL Total Bilirubin (0.0-1.0) mg/dL Direct Bilirubin (0.0-0.5) mg/dL AST (5-37) U/L ALT (0-40) U/L Alkaline Phosphatase (39-117) U/L Lactate Dehydrogenase (118-273) U/L Troponin I High Sens 8.9 (<3.5-35.0) ng/L C-Reactive Protein (< or = 0.50) mg/dL B-Natriuretic Peptide 40 (<100) pg/mL Total Protein (6.5-8.0) g/dL Albumin (3.5-5.0) g/dL Procalcitonin 0.06 ng/mL Urine Color Urine Appearance Urine pH (5.0-8.0) Ur Specific [place] (1.005-1.025) Urine Protein (NEG-TRACE) MG/DL Urine Glucose (UA) (NEG) MG/DL Urine Ketones (NEG) MG/DL Urine Blood (NEG) Urine Nitrite (NEG) Ur Leukocyte Esterase (NEG) Urine RBC (0) /HPF Urine WBC (0-4) /HPF Ur Squamous Epith Cells /LPF Urine Bacteria /LPF Urine Mucus /LPF COVID-19 (LB) (Negative) COVID-19 Clin Com 09/15/20 09/15/20 Range/Units 20:34 20:34 WBC (4.8-10.8) X10*3/uL RBC (4.60-5.80) X10*6/uL Hgb (14.0-18.0) g/dl Hct (42-52) % MCV (80-98) fL MCH (27.0-33.0) pg MCHC (31.0-36.0) g/dl RDW (11.0-16.0) % Plt Count (160-400) X10*3/uL MPV (9.4-12.4) fL Immature Gran % (Auto) (0.0-0.4) % Neut % (Auto) (45-73) % Lymph % (Auto) (20-40) % [place] % (Auto) (2-11) % Eos % (Auto) (0-4) % Baso % (Auto) (0-2) % Lymph # (Auto) (1.2-4.9) X10*3/uL [place] # (Auto) (0.1-1.2) X10*3/uL Eos # (Auto) (0.0-0.4) X10*3/uL Baso # (Auto) (0.0-0.2) X10*3/uL Abs Immat Gran (auto) (0.00-0.03) X10*3/uL Absolute Neuts (auto) (2.0-8.3) X10*3/uL Absolute Nucleated RBC (0.0-0.012) X10*3/uL Nucleated RBC % (auto) (0.0-0.2) /100WBC Smear Tech's Comments PT (10.8-13.0) SEC INR (0.9-1.1) APTT (24.1-38.0) SEC Hold Blue Top Sodium (135-145) mmol/L Potassium (3.3-5.1) mmol/L Chloride (96-108) mmol/L Carbon Dioxide (22-29) mmol/L Anion Gap (12-20) BUN (9-16) mg/dL Creatinine (0.5-1.4) mg/dL Estim Creat Clear Calc Estimated GFR Random Glucose (60-115) mg/dL Calcium (8.4-10.2) mg/dL Ferritin (20-250) ng/mL Total Bilirubin (0.0-1.0) mg/dL Direct Bilirubin (0.0-0.5) mg/dL AST (5-37) U/L ALT (0-40) U/L Alkaline Phosphatase (39-117) U/L Lactate Dehydrogenase (118-273) U/L Troponin I High Sens 13.8 D (<3.5-35.0) ng/L C-Reactive Protein (< or = 0.50) mg/dL B-Natriuretic Peptide (<100) pg/mL Total Protein (6.5-8.0) g/dL Albumin (3.5-5.0) g/dL Procalcitonin ng/mL Urine Color YELLOW Urine Appearance CLEAR Urine pH 5.5 (5.0-8.0) Ur Specific [place] 1.020 (1.005-1.025) Urine Protein 1+ H (NEG-TRACE) MG/DL Urine Glucose (UA) NEG (NEG) MG/DL Urine Ketones NEG (NEG) MG/DL Urine Blood 1+ H (NEG) Urine Nitrite NEG (NEG) Ur Leukocyte Esterase NEG (NEG) Urine RBC 1-4 (0) /HPF Urine WBC 0-2 (0-4) /HPF Ur Squamous Epith Cells TRACE /LPF Urine Bacteria NONE /LPF Urine Mucus TRACE /LPF COVID-19 (LB) (Negative) COVID-19 Clin Com Imaging Data CT scan of brain without contrast: Attestation: I personally reviewed and interpreted this imaging study as follows: Radiologist's impression: FINDINGS: There is no evidence of acute intracranial hemorrhage or territorial infarction. No abnormal mass-effect or midline shift is seen. Brown to white matter differentiation is well preserved. No extra-axial fluid collections are identified. There is age-appropriate atrophy with prominence of the ventricles and the sulci and hypodensity of the periventricular white matter due to chronic small vessel ischemic disease. There are vascular calcifications of the internal carotid arteries bilaterally. There is no osseous abnormality. The sphenoid sinus is entirely opacified. This has progressed since CAT scan 05/03/2011. There are faint calcifications in the sphenoid sinus indicating chronic sinus disease including possibility of fungal infection. There is a small air-fluid level in the dependent left maxillary sinus. The mastoid air cells and middle ear cavities are normally aerated. CT/CT head/brain wo con IMPRESSION: 1. No acute intracranial abnormality. 2. Chronic sinus disease in sphenoid sinus. Air-fluid level in the left maxillary sinus. CTA of chest for PE: Attestation: I personally reviewed and interpreted this imaging study as follows: Radiologist's impression: FINDINGS: QUALITY OF STUDY/CONTRAST BOLUS: Satisfactory. PULMONARY ARTERIES: No central or segmental pulmonary emboli. THORACIC AORTA: No aneurysm or dissection. LUNG: The lungs are well expanded with elevation of right hemidiaphragm and right basilar atelectasis. PLEURA: No pleural effusion or pneumothorax. MEDIASTINUM: The thyroid lobes are symmetrical and normal. The central trachea and bronchi are widely patent. No evidence of septal bowing or right heart strain. CHEST WALL/AXILLA: No axillary or internal mammary lymphadenopathy. OSSEOUS STRUCTURES: There is no lytic or sclerotic process. There is ventral spondylosis throughout dorsal spine. UPPER ABDOMEN: Visualized liver, spleen and pancreas is unremarkable. No reflux of contrast into the hepatic veins to suggest elevated right heart pressures. CT/CT angio chest PE protocol IMPRESSION: No evidence of PE. There is no evidence of aortic dissection or aneurysm. Elevated right hemidiaphragm with right basilar atelectasis VTE: negative Venous duplex lower extremity ultrasound: Attestation: I personally reviewed and interpreted this imaging study as follows: Radiologist's impression: FINDINGS: RIGHT: There is normal venous compression and respiratory variation and augmented flow. The visualized common femoral vein, superficial femoral vein, profunda femoral vein, popliteal vein, and the trifurcation region shows no evidence of deep venous thrombosis. There is a popliteal fossa cyst which measures 4.9 x 2.5 x 4 cm. Peroneal veins are not seen due to calf edema. LEFT: There is normal venous compression and respiratory variation and augmented flow. The visualized common femoral vein, superficial femoral vein, profunda femoral vein, popliteal vein, and the trifurcation region shows no evidence of deep venous thrombosis. There is no significant popliteal fossa cyst. Peroneal veins are not identified due to calf edema. If the patient's symptoms persist, followup ultrasound in 5 days 7 days might be of value to exclude proximal propagation from a non-visualized calf vein. US/US venous duplex LE BI IMPRESSION: No DVT demonstrated in the bilateral lower extremities. ECG Data Attestation: I personally reviewed and interpreted this ECG as follows: ECG interpretation date: 09/15/20 ECG interpretation time: 17:36 Interpretation: Normal sinus rhythm with a ventricular rate of 74 with mild voltage criteria for LVH with nonspecific ST abnormalities no acute ischemic changes noted. No prior EKGs to compare to at this time in our system. Critical Care Time Critical Care Time Critical Care Time: Yes Total Critical Care Time: 60 Attestation: I personally attest to this time spent taking care of the patient Discharge Plan Discharge Clinical Impression: Viral sepsis, COVID-19, Dizziness, Fever, Pancytopenia, Elevated troponin Patient Disposition: Admitted As Inpatient
[2020-09-15 18:19] LABS: Ferritin 315 ng/mL (20-250)
[2020-09-15 18:24] LABS: Procalcitonin 0.06 ng/mL
[2020-09-15 18:37] LABS: Troponin-I High Sensitivity 8.9 ng/L (<3.5-35.0)
--- NOTE | 2020-09-15 19:56 | PC.NURSE ---
REPORT TAKEN FROM [facility], FIRST CONTACT WITH PT. LAYING IN BED SKIN PWD RESPIRATIONS EVEN UNLABORED, A&Ox3, REPORTS CONTINUED PRODUCTIVE COUGH. PRESENTED TO ED TODAY FOR REPORTS OF COUGH, FEVER, SOB, CHILLS, DIZZINESS SINCE SATURDAY. COVID+. AWAITING CT AND US RESULTS, AWARE OF PLAN OF CARE.
[2020-09-15 21:00] LABS: Glucose Urine UA NEG (NEG); Leukocyte Esterase Urine NEG (NEG); Nitrite Urine NEG (NEG); PH 5.5 (5.0-8.0); Urine Blood 1+ (NEG); Urine Ketones NEG (NEG); Urine Protein 1+ MG/DL (NEG-TRACE)
[2020-09-15 21:05] LABS: Appearance Urine CLEAR; Color Urine YELLOW
[2020-09-15 21:09] LABS: Mucus Urine TRACE /LPF; Squamous Epithelial Cell Urine TRACE /LPF; WBC Urine 0-2 /HPF (0-4)
[2020-09-15 21:25] LABS: Troponin-I High Sensitivity 13.8 ng/L (<3.5-35.0)
[2020-09-15] MEDS: Acetaminophen 325 MG TABLET 975 MG PO (22:45)
[2020-09-15] MEDS: cefTRIAXone sodium 1 GM in 0.9 % Sodium Chloride 50 ML IV (22:46)
[2020-09-15 22:52] LABS: Lactic Acid 1.1 mmol/L (0.5-2.0)
[2020-09-16] MEDS: Heparin Sodium,Porcine 5,000 UNIT/ML VIAL 5000 UNIT SUBCUT (02:10)
[2020-09-16] MEDS: 0.9 % Sodium Chloride Flush 3 ML SYRINGE IVFLUSH ×2 (02:11→07:29)
[2020-09-16 02:16] VITALS: BP 135/62; PULSE 55; RESP 18; TEMP 36.7; O2SAT 96
[2020-09-16 03:43] VITALS: BP 115/57; PULSE 55; RESP 18; TEMP 36.7; O2SAT 93
--- NOTE | 2020-09-16 04:17 | PM.IMHP ---
History of Present Illness Date of Service: 09/15/20 Chief Complaint: Cough This is a 70-year-old male with past medical history of hypertension, diabetes, chronic lymphadenopathy, PE,, hyperlipidemia presents the hospital with complaints of cough, sputum production, fever and chills, and low appetite. Patient reports the symptoms are about 3 days ago. He is also complaining of dizziness. Denies any sick contacts, denies any shortness of breath, denies any headache, change in vision, no nausea or vomiting, no abdominal pain, no diarrhea constipation, reports chronic lower extremity edema with no change, and no urinary symptoms. Denies any recent travel. To the ED patient's temp is a 100.5?, blood pressure 166/70 all other vitals within normal Labs are significant for hemoglobin of 10.5, BUN of 22, creatinine of 1.15 which is around his baseline, ferritin of 315, CRP of 1.42. Procalcitonin of 0.06, UA negative, positive COVID-19, chest CT angiogram was negative for PE. Given his lower extremity edema patient underwent venous duplex with no DVT, CT angiogram also negative for PE, with no evidence of pulmonary infiltrates, head CT shows no acute intracranial abnormality. Chronic sinus disease Past medical history as below and confirmed with patient Review of Systems Review of Systems: Yes all other systems are reviewed and are negative [facility] Medical History (Updated 09/16/20 @ 04:23 by Dandy Jean MD) Anemia Benign essential hypertension Diabetes mellitus DVT (deep venous thrombosis) HTN (hypertension) Overweight (BMI 25.0-29.9) Pulmonary embolism Pulmonary granuloma Pure hypercholesterolemia Social History Household Members: Other Household Members Other:: nephew Housing: House Do you presently have visiting nurse or other home services: No Alcohol intake: never Smoking Status: Never smoker Use of substances other than those prescribed or required for medical reasons: No Have you been hit, kicked, punched, or otherwise hurt by someone within the past year? If so, by whom?: No Do you feel safe in your current relationship?: No Is there a partner from a previous relationship who is making you feel unsafe now?: No Are you made to feel afraid or neglected: No Advance Directives: No Advance Directives Information Provided: Yes Do you have thoughts of harming others: None Do you have a plan to hurt others: No Plan Recently lost weight without trying: No Meds Allergies Allergy/AdvReac Type Severity Reaction Status Date / Time No Known Allergies Allergy Verified 08/04/20 20:40 [No Known Allergies*] Active Medications: Current Medications Generic Name Dose Route Start Last Admin Trade Name Seq PRN Reason Stop Dose Admin Acetaminophen 650 mg 09/16/20 00:16 Acetaminophen 325 Mg Tablet PO Q6H PRN Pain, Mild (Pain Scale 1-3) Aspirin 81 mg 09/16/20 09:00 Aspirin Enteric Coated 81 Mg Tablet. PO DAILY [facility] Atenolol 25 mg 09/16/20 09:00 Atenolol 25 Mg Tablet PO DAILY [facility] Protocol Docusate Sodium 100 mg 09/16/20 00:16 Docusate Sodium 100 Mg Capsule PO DAILY PRN Constipation Ferrous Sulfate 324 mg 09/16/20 08:00 Ferrous Sulfate 324 Mg Tablet. PO BIDWM [facility] Heparin Sodium (Porcine) 5,000 unit 09/16/20 00:16 09/16/20 02:10 Heparin Sodium,Porcine 5,000 Unit/Ml Vial SUBCUT 5,000 unit BID [facility] Administration Insulin Human Lispro 0 unit 09/16/20 07:30 Insulin Lispro 100 Unit/Ml 3 Ml Vial SUBCUT QIDACHS [facility] Protocol Lisinopril 20 mg 09/16/20 09:00 Lisinopril 20 Mg Tablet PO DAILY [facility] Protocol Ondansetron HCl 4 mg 09/16/20 00:16 Ondansetron Hcl 4 Mg/2 Ml Vial IVPUSH Q8H PRN Nausea and Vomiting Pharmacy Consult 1 each 09/15/20 21:54 Consult Rx Perform Med Rec MISCELLANE ONCE PRN Consult order Pravastatin Sodium 20 mg 09/16/20 09:00 Pravastatin Sodium 20 Mg Tablet PO DAILY [facility] Sodium Chloride 3 ml 09/16/20 00:16 09/16/20 02:11 0.9 % Sodium Chloride Flush 3 Ml Syringe IVFLUSH 3 ml QSHIFT [facility] Administration Home Medications Medication Instructions Recorded Confirmed Last Taken Type aspirin 81 mg tablet,delayed 81 mg PO DAILY 08/04/20 09/15/20 Unknown History release ferrous sulfate 325 mg (65 mg 325 mg PO BID 08/04/20 09/15/20 Unknown History iron) tablet lisinopril 20 mg tablet 20 mg PO DAILY 08/04/20 09/15/20 Unknown History Physical Exam Vital Signs and Narrative: Vital Signs: Last Vital Signs Temp 98.1 F 09/16/20 03:43 Pulse 55 09/16/20 03:43 Resp 18 09/16/20 03:43 BP 115/57 L 09/16/20 03:43 Pulse Ox 93 09/16/20 03:43 Body Mass Index 28.4 Const: General: cooperative and no acute distress Orientation/consciousness: patient oriented x3 Eyes: General: appearance normal, both eyes and all related structures Resp: Effort & Inspection: normal respiratory effort and able to speak in complete sentences Cardio: Rate: regular rate Rhythm: regular rhythm GI: Palpation (GI): Soft to palpation Auscultation: normal bowel sounds Skin: General skin exam: no rashes or lesions noted Neuro: General: patient oriented x3 Cognition (Neuro): normal cognition Extrem: General: Yes normal to inspection and Yes no pedal edema Results Labs CBC and Chem 7: 09/15/20 17:00 09/15/20 17:00 Labs: Laboratory Results - last 24 hr 09/15/20 09/15/20 09/15/20 16:40 17:00 17:00 MCV MCH MCHC RDW Plt Count MPV Immature Gran % (Auto) Neut % (Auto) Lymph % (Auto) [place] % (Auto) Eos % (Auto) Baso % (Auto) Lymph # (Auto) [place] # (Auto) Eos # (Auto) Baso # (Auto) Abs Immat Gran (auto) Absolute Neuts (auto) Absolute Nucleated RBC Nucleated RBC % (auto) Smear Tech's Comments PT 13.4 H INR 1.1 APTT 36.7 Hold Blue Top SEE NOTE Anion Gap 18 Estim Creat Clear Calc 70.4 Estimated GFR > 60 Random Glucose 130 H Lactic Acid Calcium 8.1 L Ferritin 315 H Total Bilirubin 0.2 Direct Bilirubin < 0.2 AST 21 ALT 11 Alkaline Phosphatase 61 Lactate Dehydrogenase 194 Troponin I High Sens C-Reactive Protein 1.42 H B-Natriuretic Peptide Total Protein 6.6 Albumin 4.0 Procalcitonin Urine Color Urine Appearance Urine pH Ur Specific [place] Urine Protein Urine Glucose (UA) Urine Ketones Urine Blood Urine Nitrite Ur Leukocyte Esterase Urine RBC Urine WBC Ur Squamous Epith Cells Urine Bacteria Urine Mucus COVID-19 (LB) Positive A COVID-19 Clin Com See Note 09/15/20 09/15/20 09/15/20 17:00 17:00 17:00 MCV 92.4 MCH 29.7 MCHC 32.1 RDW 13.8 Plt Count 110 L D MPV 12.9 H Immature Gran % (Auto) 0.3 Neut % (Auto) 72.8 Lymph % (Auto) 16.7 L [place] % (Auto) 9.9 Eos % (Auto) 0.0 Baso % (Auto) 0.3 Lymph # (Auto) 0.6 L [place] # (Auto) 0.4 Eos # (Auto) 0.0 Baso # (Auto) 0.0 Abs Immat Gran (auto) 0.01 Absolute Neuts (auto) 2.6 Absolute Nucleated RBC 0.000 Nucleated RBC % (auto) 0.0 Smear Tech's Comments VERIFIED PT INR APTT Hold Blue Top Anion Gap Estim Creat Clear Calc Estimated GFR Random Glucose Lactic Acid Calcium Ferritin Total Bilirubin Direct Bilirubin AST ALT Alkaline Phosphatase Lactate Dehydrogenase Troponin I High Sens 8.9 C-Reactive Protein B-Natriuretic Peptide 40 Total Protein Albumin Procalcitonin 0.06 Urine Color Urine Appearance Urine pH Ur Specific [place] Urine Protein Urine Glucose (UA) Urine Ketones Urine Blood Urine Nitrite Ur Leukocyte Esterase Urine RBC Urine WBC Ur Squamous Epith Cells Urine Bacteria Urine Mucus COVID-19 (LB) COVID-19 Z2 09/15/20 09/15/20 09/15/20 20:34 20:34 22:27 MCV MCH MCHC RDW Plt Count MPV Immature Gran % (Auto) Neut % (Auto) Lymph % (Auto) [place] % (Auto) Eos % (Auto) Baso % (Auto) Lymph # (Auto) [place] # (Auto) Eos # (Auto) Baso # (Auto) Abs Immat Gran (auto) Absolute Neuts (auto) Absolute Nucleated RBC Nucleated RBC % (auto) Smear Tech's Comments PT INR APTT Hold Blue Top Anion Gap Estim Creat Clear Calc Estimated GFR Random Glucose Lactic Acid 1.1 Calcium Ferritin Total Bilirubin Direct Bilirubin AST ALT Alkaline Phosphatase Lactate Dehydrogenase Troponin I High Sens 13.8 D C-Reactive Protein B-Natriuretic Peptide Total Protein Albumin Procalcitonin Urine Color YELLOW Urine Appearance CLEAR Urine pH 5.5 Ur Specific [place] 1.020 Urine Protein 1+ H Urine Glucose (UA) NEG Urine Ketones NEG Urine Blood 1+ H Urine Nitrite NEG Ur Leukocyte Esterase NEG Urine RBC 1-4 Urine WBC 0-2 Ur Squamous Epith Cells TRACE Urine Bacteria NONE Urine Mucus TRACE COVID-19 (LB) COVID-19 Clin Com Imaging Radiologist's Impressions: Impressions Head CT 09/15/20 17:30 IMPRESSION: 1. No acute intracranial abnormality. 2. Chronic sinus disease in sphenoid sinus. Air-fluid level in the left maxillary sinus. Chest CTA 09/15/20 18:27 IMPRESSION: No evidence of PE. There is no evidence of aortic dissection or aneurysm. Elevated right hemidiaphragm with right basilar atelectasis VTE: negative Venous Duplex 09/15/20 18:36 IMPRESSION: No DVT demonstrated in the bilateral lower extremities. Assessment and Plan (1) Viral sepsis: Status: Acute (2) COVID-19: Status: Acute (3) Dizziness: Status: Acute (4) Fever: Status: Acute This is a 70-year-old male with past medical history of hypertension, diabetes who presents to the hospital with cough, sputum production, fever, and dizziness. Found to have COVID-19 positive. # COVID-19 viral sepsis - no evidence of bacterial infection - has leukopenia, febrile, no evidence of pneumonia on chest CT angiogram - low procalcitonin Plan: - as the patient is not hypoxic, will hold off on starting him on Decadron - supportive measures - hold off antibiotics as this is most likely viral and not bacterial # dizziness - most likely secondary to low oral intake, and viral infection - monitor # fever - secondary to above - Resolved with Tylenol - continue Tylenol p.r.n. # hypertension - stable - continue home regimen # diabetes - hold antihyperglycemics - start low-dose sliding scale insulin - diabetic diet # hyperlipidemia - continue pravastatin DVT prophylaxis: Heparin subQ
[2020-09-16 05:08] LABS: Hemoglobin 9.8 g/dl (14.0-18.0); Imm Gran Abs Auto 0.01 X10*3/uL (0.00-0.03); Imm Gran Pct Auto 0.3 % (0.0-0.4); MANUAL DIFF FLAG SCAN; SCAN SMEAR FLAG 1
[2020-09-16 05:10] LABS: Hematocrit 30.6 % (42-52); Lymphocytes Percent Auto 29.5 % (20-40); Mean Corpuscular Hemoglobin 29.4 pg (27.0-33.0); Mean Corpuscular Volume 91.9 fL (80-98); Monocytes Absolute Auto 0.3 X10*3/uL (0.1-1.2); Monocytes Percent Auto 9.5 % (2-11); Neutrophils Percent Auto 60.7 % (45-73); Red Blood Count 3.33 X10*6/uL (4.60-5.80); White Blood Count 3.4 X10*3/uL (4.8-10.8)
[2020-09-16 05:15] LABS: PLT ABN DIST 1; Platelet Count 91 X10*3/uL (160-400)
[2020-09-16 05:34] LABS: SLIDE REVIEW VERIFIED
[2020-09-16 05:36] LABS: Anion Gap 17 (12-20); Blood Urea Nitrogen 21 mg/dL (9-16); Calcium 7.6 mg/dL (8.4-10.2); Carbon Dioxide 21 mmol/L (22-29); Chloride 107 mmol/L (96-108); Creatinine Clr Calc Pharmacy 74.3; Estimated Glomerular Filt Rate > 60; Glucose Random 89 mg/dL (60-115); Sodium 141 mmol/L (135-145)
[2020-09-16 07:08] VITALS: BP 157/69; PULSE 60; RESP 18; TEMP 36.6; O2SAT 95
[2020-09-16 07:21] LABS: Glucose, Whole Blood 79 mg/dL (60-115)
[2020-09-16] MEDS: Pravastatin Sodium 20 MG TABLET PO (07:29)
[2020-09-16] MEDS: lisinopriL 20 MG TABLET PO (07:29)
[2020-09-16] MEDS: Aspirin Enteric Coated 81 MG TABLET.DR PO (07:30)
[2020-09-16] MEDS: Ferrous Sulfate 324 MG TABLET.DR PO (07:30)
[2020-09-16] MEDS: atenoloL 25 MG TABLET PO (07:30)
[2020-09-16 10:06] LABS: Troponin-I High Sensitivity 26.7 ng/L (<3.5-35.0)
--- NOTE | 2020-09-16 10:56 | MHC.CM.PN ---
dc plan home no servcies likely dc today
[2020-09-16 11:10] VITALS: BP 157/71; PULSE 52; RESP 18; TEMP 36.6; O2SAT 94
[2020-09-16 11:21] LABS: Glucose, Whole Blood 104 mg/dL (60-115)
--- NOTE | 2020-09-16 12:39 | MHC.CM.PN ---
per multidis rounds no dc date at this time dc plan reamni ns rosales e no services
--- NOTE | 2020-09-16 12:43 | MHC.CM.PN ---
received call back from pts brother who explains that pts nephew is livivng with pt and he had no preadmission servceis brothe will transport pt home
[2020-09-16 14:07] LABS: Troponin-I High Sensitivity 22.8 ng/L (<3.5-35.0)
--- NOTE | 2020-09-16 15:24 | PM.DS ---
DS: Providers Provider Date of Service: 09/16/20 Date of admission: 09/15/20 23:05 Primary care physician: Stanley Cabrera MD DS: Diagnosis Discharge Diagnosis (1) Viral sepsis: Status: Acute (2) COVID-19: Status: Acute (3) Dizziness: Status: Acute (4) Fever: Status: Acute DS: Medications Discharge Medications Home Medications: Home Medications Medication Instructions Recorded Confirmed aspirin 81 mg tablet,delayed 81 mg PO DAILY 08/04/20 09/15/20 release ferrous sulfate 325 mg (65 mg 325 mg PO BID 08/04/20 09/15/20 iron) tablet lisinopril 20 mg tablet 20 mg PO DAILY 08/04/20 09/15/20 Previous Rx's Medication Instructions Recorded atenolol 25 mg tablet 25 mg PO DAILY 90 Days #90 tab 08/04/20 pravastatin 20 mg tablet 20 mg PO DAILY 90 Days #90 tab 08/04/20 mecobalamin (vitamin B12) 1,000 1,000 mcg PO DAILY #90 tab 08/16/20 mcg chewable tablet potassium chloride 8 mEq 8 meq PO DAILY 30 Days #30 tab 08/16/20 tablet,extended release metformin 500 mg tablet,extended 500 mg PO QID #360 tab 08/18/20 release 24 hr DS: Summary Hospital Course Hospital Course: History of presenting illness Chief Complaint: Cough This is a 70-year-old male with past medical history of hypertension, diabetes, chronic lymphadenopathy, PE,, hyperlipidemia presents the hospital with complaints of cough, sputum production, fever and chills, and low appetite. Patient reports the symptoms are about 3 days ago. He is also complaining of dizziness. Denies any sick contacts, denies any shortness of breath, denies any headache, change in vision, no nausea or vomiting, no abdominal pain, no diarrhea constipation, reports chronic lower extremity edema with no change, and no urinary symptoms. Denies any recent travel. To the ED patient's temp is a 100.5?, blood pressure 166/70 all other vitals within normal Labs are significant for hemoglobin of 10.5, BUN of 22, creatinine of 1.15 which is around his baseline, ferritin of 315, CRP of 1.42. Procalcitonin of 0.06, UA negative, positive COVID-19, chest CT angiogram was negative for PE. Given his lower extremity edema patient underwent venous duplex with no DVT, CT angiogram also negative for PE, with no evidence of pulmonary infiltrates, head CT shows no acute intracranial abnormality. Chronic sinus disease Hospital course COVID-19 viral sepsis 70-year-old gentleman with past medical history of hypertension and diabetes presented with cough, fever and dizziness and diagnosed with COVID-19 infection patient developed above symptoms 2 days prior to presentation, patient had no hypoxia no evidence of secondary bacterial infection, his dizziness resolved, his troponin were elevated but remain flat with no symptoms of chest discomfort since patient is hemodynamically stable with no recurrent fevers no hypoxia he is being discharged home with recommendations for 9 more days of isolation patient has been recommended to resume all home medication except dose of metformin ER has been change from 500 q.i.d. to 500 b.i.d. will also obtain a hemoglobin A1c he has been recommended to have outpatient follow-up with PCP. Pancytopenia related to COVID infection remains stable Time Spent with Patient Time attestation: Total time spent providing and/or coordinating discharge services: Discharge coordination time: Greater than 30 minutes Physical Exam Vital Signs: Vital Signs: Last Vital Signs Temp 97.8 F 09/16/20 11:10 Pulse 52 09/16/20 11:10 Resp 18 09/16/20 11:10 BP 157/71 H 09/16/20 11:10 Pulse Ox 94 09/16/20 11:10 Body Mass Index 28.4 General patient resting comfortably in no acute distress. Neck is supple no JVD. CVS regular rate rhythm, Respiratory lungs clear to auscultation, no respiratory distress, no wheeze, no rhonchi. Gastrointestinal abdomen soft, nontender, bowel sounds audible, no guarding , no rigidity. Extremities no clubbing cyanosis or edema. Neuro nonfocal , speech clear. Skin no rash DS: Data Data Completed and Pending Labs on day of discharge: Laboratory Results - last 24 hr 09/15/20 09/15/20 09/15/20 16:40 17:00 17:00 WBC RBC Hgb Hct MCV MCH MCHC RDW Plt Count MPV Immature Gran % (Auto) Neut % (Auto) Lymph % (Auto) [place] % (Auto) Eos % (Auto) Baso % (Auto) Lymph # (Auto) [place] # (Auto) Eos # (Auto) Baso # (Auto) Abs Immat Gran (auto) Absolute Neuts (auto) Absolute Nucleated RBC Nucleated RBC % (auto) Smear Tech's Comments PT 13.4 H INR 1.1 APTT 36.7 Hold Blue Top SEE NOTE Sodium 142 Potassium 4.3 Chloride 107 Carbon Dioxide 21 L Anion Gap 18 BUN 22 H Creatinine 1.15 Estim Creat Clear Calc 70.4 Estimated GFR > 60 POC Glucose Random Glucose 130 H Lactic Acid Calcium 8.1 L Ferritin 315 H Total Bilirubin 0.2 Direct Bilirubin < 0.2 AST 21 ALT 11 Alkaline Phosphatase 61 Lactate Dehydrogenase 194 Troponin I High Sens C-Reactive Protein 1.42 H B-Natriuretic Peptide Total Protein 6.6 Albumin 4.0 Procalcitonin Urine Color Urine Appearance Urine pH Ur Specific [place] Urine Protein Urine Glucose (UA) Urine Ketones Urine Blood Urine Nitrite Ur Leukocyte Esterase Urine RBC Urine WBC Ur Squamous Epith Cells Urine Bacteria Urine Mucus COVID-19 (LB) Positive A COVID-19 Clin Com See Note 09/15/20 09/15/20 09/15/20 17:00 17:00 17:00 WBC 3.5 L RBC 3.54 L Hgb 10.5 L Hct 32.7 L MCV 92.4 MCH 29.7 MCHC 32.1 RDW 13.8 Plt Count 110 L D MPV 12.9 H Immature Gran % (Auto) 0.3 Neut % (Auto) 72.8 Lymph % (Auto) 16.7 L [place] % (Auto) 9.9 Eos % (Auto) 0.0 Baso % (Auto) 0.3 Lymph # (Auto) 0.6 L [place] # (Auto) 0.4 Eos # (Auto) 0.0 Baso # (Auto) 0.0 Abs Immat Gran (auto) 0.01 Absolute Neuts (auto) 2.6 Absolute Nucleated RBC 0.000 Nucleated RBC % (auto) 0.0 Smear Tech's Comments VERIFIED PT INR APTT Hold Blue Top Sodium Potassium Chloride Carbon Dioxide Anion Gap BUN Creatinine Estim Creat Clear Calc Estimated GFR POC Glucose Random Glucose Lactic Acid Calcium Ferritin Total Bilirubin Direct Bilirubin AST ALT Alkaline Phosphatase Lactate Dehydrogenase Troponin I High Sens 8.9 C-Reactive Protein B-Natriuretic Peptide 40 Total Protein Albumin Procalcitonin 0.06 Urine Color Urine Appearance Urine pH Ur Specific [place] Urine Protein Urine Glucose (UA) Urine Ketones Urine Blood Urine Nitrite Ur Leukocyte Esterase Urine RBC Urine WBC Ur Squamous Epith Cells Urine Bacteria Urine Mucus COVID-19 (LB) COVID-19 Clin Com 09/15/20 09/15/20 09/15/20 20:34 20:34 22:27 WBC RBC Hgb Hct MCV MCH MCHC RDW Plt Count MPV Immature Gran % (Auto) Neut % (Auto) Lymph % (Auto) [place] % (Auto) Eos % (Auto) Baso % (Auto) Lymph # (Auto) [place] # (Auto) Eos # (Auto) Baso # (Auto) Abs Immat Gran (auto) Absolute Neuts (auto) Absolute Nucleated RBC Nucleated RBC % (auto) Smear Tech's Comments PT INR APTT Hold Blue Top Sodium Potassium Chloride Carbon Dioxide Anion Gap BUN Creatinine Estim Creat Clear Calc Estimated GFR POC Glucose Random Glucose Lactic Acid 1.1 Calcium Ferritin Total Bilirubin Direct Bilirubin AST ALT Alkaline Phosphatase Lactate Dehydrogenase Troponin I High Sens 13.8 D C-Reactive Protein B-Natriuretic Peptide Total Protein Albumin Procalcitonin Urine Color YELLOW Urine Appearance CLEAR Urine pH 5.5 Ur Specific [place] 1.020 Urine Protein 1+ H Urine Glucose (UA) NEG Urine Ketones NEG Urine Blood 1+ H Urine Nitrite NEG Ur Leukocyte Esterase NEG Urine RBC 1-4 Urine WBC 0-2 Ur Squamous Epith Cells TRACE Urine Bacteria NONE Urine Mucus TRACE COVID-19 (LB) COVID-19 Clin Com 09/16/20 09/16/20 09/16/20 04:44 04:44 07:08 WBC 3.4 L RBC 3.33 L Hgb 9.8 L Hct 30.6 L MCV 91.9 MCH 29.4 MCHC 32.0 RDW 14.0 Plt Count 91 L MPV 13.0 H Immature Gran % (Auto) 0.3 Neut % (Auto) 60.7 Lymph % (Auto) 29.5 [place] % (Auto) 9.5 Eos % (Auto) 0.0 Baso % (Auto) 0.0 Lymph # (Auto) 1.0 L [place] # (Auto) 0.3 Eos # (Auto) 0.0 Baso # (Auto) 0.0 Abs Immat Gran (auto) 0.01 Absolute Neuts (auto) 2.0 Absolute Nucleated RBC 0.000 Nucleated RBC % (auto) 0.0 Smear Tech's Comments VERIFIED PT INR APTT Hold Blue Top Sodium 141 Potassium 4.0 Chloride 107 Carbon Dioxide 21 L Anion Gap 17 BUN 21 H Creatinine 1.09 Estim Creat Clear Calc 74.3 Estimated GFR > 60 POC Glucose 79 Random Glucose 89 Lactic Acid Calcium 7.6 L D Ferritin Total Bilirubin Direct Bilirubin AST ALT Alkaline Phosphatase Lactate Dehydrogenase Troponin I High Sens C-Reactive Protein B-Natriuretic Peptide Total Protein Albumin Procalcitonin Urine Color Urine Appearance Urine pH Ur Specific [place] Urine Protein Urine Glucose (UA) Urine Ketones Urine Blood Urine Nitrite Ur Leukocyte Esterase Urine RBC Urine WBC Ur Squamous Epith Cells Urine Bacteria Urine Mucus COVID-19 (LB) COVID-19 Clin Com 09/16/20 09/16/20 09/16/20 09:22 11:10 13:17 WBC RBC Hgb Hct MCV MCH MCHC RDW Plt Count MPV Immature Gran % (Auto) Neut % (Auto) Lymph % (Auto) [place] % (Auto) Eos % (Auto) Baso % (Auto) Lymph # (Auto) [place] # (Auto) Eos # (Auto) Baso # (Auto) Abs Immat Gran (auto) Absolute Neuts (auto) Absolute Nucleated RBC Nucleated RBC % (auto) Smear Tech's Comments PT INR APTT Hold Blue Top Sodium Potassium Chloride Carbon Dioxide Anion Gap BUN Creatinine Estim Creat Clear Calc Estimated GFR POC Glucose 104 Random Glucose Lactic Acid Calcium Ferritin Total Bilirubin Direct Bilirubin AST ALT Alkaline Phosphatase Lactate Dehydrogenase Troponin I High Sens 26.7 D 22.8 C-Reactive Protein B-Natriuretic Peptide Total Protein Albumin Procalcitonin Urine Color Urine Appearance Urine pH Ur Specific [place] Urine Protein Urine Glucose (UA) Urine Ketones Urine Blood Urine Nitrite Ur Leukocyte Esterase Urine RBC Urine WBC Ur Squamous Epith Cells Urine Bacteria Urine Mucus COVID-19 (LB) COVID-19 Clin Com Discharge Plan Discharge Patient Disposition: Home, Self-Care Referrals: Stanley Cabrera MD [Primary Care Provider] - Discharge Medications: New Robitussin Cough-Chest [place] DM 5-100 mg/5 mL liquid 10 ml PO Q4-8H PRN (Reason: cough) Qty: 237 RF: 0 Continued mecobalamin (vitamin B12) 1,000 mcg tablet,chewable 1,000 mcg PO DAILY Qty: 90 RF: 0 potassium chloride 8 mEq tablet extended release 8 meq PO DAILY 30 Days Qty: 30 RF: 3 lisinopril 20 mg tablet 20 mg PO DAILY RF: 0 aspirin [Adult Low Dose Aspirin] 81 mg tablet,delayed release (DR/EC) 81 mg PO DAILY RF: 0 ferrous sulfate [Feosol] 325 mg (65 mg iron) tablet 325 mg PO BID RF: 0 pravastatin 20 mg tablet 20 mg PO DAILY 90 Days Qty: 90 RF: 1 atenolol 25 mg tablet 25 mg PO DAILY 90 Days Qty: 90 RF: 1 Changed metformin 500 mg tablet extended release 24 hr 500 mg PO BID Qty: 360 RF: 0 Discharge Orders: Discharge Order (Routine); Ordered 09/16/20 Ordered By: Priscila Byrnes Diet: diabetic diet Activity on Discharge: As tolerated Stand Alone Forms: Patient Portal Discharge page Care Plan Goals: Rest plenty of fluids take deep breaths, take cough medication as needed, continue all home medications, dose of metformin reduced to 500 mg twice a day, return to check with any worsening symptoms of shortness of breath, lightheadedness dizziness. Health Concerns: COVID-19 infection/rest continue isolation for 9 more days Plan of Treatment: Outpatient follow-up with primary care physician.
[2020-09-16 15:26] VITALS: BP 156/70; PULSE 61; RESP 18; TEMP 36.8; O2SAT 94
--- NOTE | 2020-09-16 15:26 | MHC.CM.PN ---
Patient has been medically cleared for dc to home today, no services.
[2020-09-16 17:05] LABS: Glucose, Whole Blood 109 mg/dL (60-115)
[2020-09-17 07:12] LABS: Estimated Average Glucose 123 mg/dL; Hemoglobin A1c % 5.9 %
== END 2020-09-16 17:35 | disposition home or self-care (01) | DRG 871 ==
LOC: HO.ED 22:20 → HO.IMC 23:43
PROVIDERS: Physician Assistant Medical; Admitting Provider Internal Medicine; Emergency Provider Internal Medicine; PCP Internal Medicine; Visit Provider Hospitalist
DX: A41.89 Other specified sepsis (principal); U07.1 COVID-19; D61.818 Other pancytopenia; I10 Essential (primary) hypertension; E11.9 Type 2 diabetes mellitus without complications; E78.5 Hyperlipidemia, unspecified; Z86.711 Personal history of pulmonary embolism; Z79.82 Long term (current) use of aspirin; Z79.84 Long term (current) use of oral hypoglycemic drugs; Z79.899 Other long term (current) drug therapy
CPT/HCPCS: 36415; 70450; 71275; 80048; 80076; 81001; 81003; 82728; 82947; 83036; 83605; 83615; 83880; 84145; 84484; 85025; 85610; 85730; 86140; 87040; 87635; 93005; 93970; 96365; 99285; 99291; J0696; Q9967

== ENCOUNTER 2020-09-22 20:06 | Inpatient (IN) | payer MEDICARE, SELFPAY ==
[2020-09-22] VITALS (8 sets, daily range): BP systolic 97–154; BP diastolic 41–82; PULSE 71–86; RESP 16–25; TEMP 36.6; O2SAT 78–95; BMI 49.3
--- NOTE | ~2020-09-22 | CT_ITS ---
EXAMINATION: CT CHEST, ABDOMEN AND PELVIS WITHOUT CONTRAST CLINICAL INFORMATION: Bowel distention and hypoxia. Covid positive COMPARISON: CT angiogram of the chest 09/15/[address] abdomen pelvis 06/01/2018 TECHNIQUE: Multidetector volumetric imaging was performed from the thoracic inlet through the pubic symphysis without IV contrast. Sagittal and coronal reformatted images were obtained on the technologist's workstation. This CT examination was performed using dose optimization techniques as appropriate, variously including the following: *Automated exposure control *Adjustment of mA and/or kV according to patient size (this includes techniques or standardized protocols for targeted exams where dose is matched to indication/reason for exam; i.e. extremities or head) *Use of iterative reconstruction technique DLP: 1415 mGy-cm FINDINGS: CHEST: Lung: There are new extensive areas of consolidation present in both lungs compared to the study of just over one week ago with consolidation with air bronchograms in both lower lobes with associated groundglass changes as well adjacent to these areas. There is a new 8 mm rounded nodule present in the left upper lobe inflammatory in nature. Again seen are multiple calcified granulomas. Mediastinum: The central vascular structures are unremarkable. No hilar or mediastinal lymphadenopathy. Coronary artery calcifications are seen. Pericardium/Pleura: No significant effusion. No pleural mass or thickening. Chest Wall/Axilla: Unremarkable ABDOMEN/PELVIS: Peritoneal Space: No significant free air or free fluid identified. Liver, Gallbladder, Biliary Tree: The liver is normal in size, shape, and attenuation. No focal hepatic lesion or biliary ductal dilatation is present. Status post cholecystectomy Pancreas: Unremarkable Spleen: Unremarkable Adrenal Glands: Unremarkable Kidneys and Ureters: The kidneys are normal in size, shape, and attenuation. A large cyst is noted at the upper pole of the left kidney measuring about 10 cm in size. This appears to have a septation within it. 2 small punctate nonobstructing intrarenal calculi present on the left. The right kidney is slightly atrophic compared to the left.. A complex right upper pole 1.7 cm exophytic mass is seen with curvilinear calcification and hyperdensity of 44 Hounsfield units. An adjacent simple cyst is noted. Some cortical calcification is noted at the lower pole all of these findings are unchanged when compared to the 06/01/2018 study. No calcifications are seen in the collecting system on the right. No hydronephrosis or hydroureter seen. No perinephric stranding. Bladder: Unremarkable. There is artifact from bilateral hip replacements obscuring detail. Gastrointestinal Tract: There is gaseous distention of the colon most prominent in the transverse colon with maximal diameter of 10 cm. An obstructing lesion is not seen. Gaseous distention was present previously but not as marked as on today's study. No small bowel dilatation is seen. The appendix is not seen with certainty but there is no evidence of appendicitis. Abdominal Wall: No significant hernia is appreciated. Lymph Nodes: No lymphadenopathy. Vascular: The aorta appears normal.. The IVC appears unremarkable. PELVIC VISCERA: Grossly normal but poorly seen because of metallic artifact from hip prostheses OSSEUS STRUCTURES: Bilateral hip prostheses are present. Marked degenerative changes present throughout the spine but no bony destructive lesions seen. CT/CT abdomen pelvis wo con IMPRESSION: 1. New extensive infiltrates in both lungs, some confluent with air bronchograms other groundglass. The findings certainly could be secondary to Covid 19. Although the denser lower lobe consolidations with air bronchograms are not entirely typical, these could be due to bacterial pneumonia or possibly even aspiration. 2. Gaseous colonic distention without an obvious obstructing lesion. This could represent an ileus. 3. Bilateral renal cysts which appear complex, but stable.
--- NOTE | ~2020-09-22 | XR_ITS ---
EXAMINATION: XR CHEST CLINICAL INFORMATION: Shortness of breath COMPARISON: CT chest 09/15/2020. TECHNIQUE: Frontal portable view of the chest was obtained. 9:02 PM FINDINGS: Lung volume is low. Hazy opacities at lung bases due to basilar atelectasis. Right diaphragm is asymmetrically elevated above the left. There are gaseous filled distended colonic bowel loops into both right and left diaphragms. XR/XR chest 1V IMPRESSION: Low lung volumes with bibasilar atelectasis.
--- NOTE | 2020-09-22 20:28 | ECG_ITS ---
Test Reason : DIFF BREATHING Blood Pressure : / mmHG Vent. Rate : 083 BPM Atrial Rate : 083 BPM P-R Int : 174 ms QRS Dur : 088 ms QT Int : 374 ms P-R-T Axes : 001 -29 009 degrees QTc Int : 439 ms Poor data quality Normal sinus rhythm Moderate voltage criteria for LVH, may be normal variant Abnormal ECG When compared with ECG of 15-SEP-2020 17:36, Nonspecific T wave abnormality now evident in Anterior leads Referred By: Latanya Flowers Electronically Signed By:FROY MOSES MD
[2020-09-22] MEDS: Albuterol Sulfate (0.083%) 2.5 MG/3 ML VIAL.NEB 10 MG INHALE (20:52)
[2020-09-22 20:56] LABS: Hematocrit 35.2 % (42-52); Hemoglobin 11.2 g/dl (14.0-18.0); Imm Gran Abs Auto 0.05 X10*3/uL (0.00-0.03); Imm Gran Pct Auto 0.7 % (0.0-0.4); Lymphocytes Absolute Auto 0.5 X10*3/uL (1.2-4.9); Lymphocytes Percent Auto 6.5 % (20-40); MANUAL DIFF FLAG SCAN; Mean Corpuscular HGB Conc 31.8 g/dl (31.0-36.0); Mean Corpuscular Hemoglobin 29.6 pg (27.0-33.0); Mean Corpuscular Volume 93.1 fL (80-98); Mean Platelet Volume 12.9 fL (9.4-12.4); Monocytes Absolute Auto 0.5 X10*3/uL (0.1-1.2); Monocytes Percent Auto 7.8 % (2-11); NRBC Pct Auto 0.3 /100WBC (0.0-0.2); Neutrophils Absolute Auto 5.8 X10*3/uL (2.0-8.3); Platelet Count 195 X10*3/uL (160-400); Red Blood Count 3.78 X10*6/uL (4.60-5.80); Red Cell Distribution Width 14.6 % (11.0-16.0); SCAN SMEAR FLAG 1; White Blood Count 6.9 X10*3/uL (4.8-10.8)
[2020-09-22] MEDS: dexAMETHasone sod phosphate 4 MG/ML VIAL 6 MG IVPUSH (20:59)
[2020-09-22 21:01] LABS: INTERNATIONAL NORM RATIO 1.3 (0.9-1.1); Prothrombin Time 15.8 SEC (10.8-13.0)
--- NOTE | 2020-09-22 21:03 | PC.NURSE ---
RT AT BEDSIDE, PT OFF NRB TO ADMINISTER ALBUTEROL TREATMENT. PT'S SPO2 DROPPED TO 75% ON 6 LPM NC AND 4LPM THROUGH TREATMENT. PT PLACED BACK ON NRB MASK.
[2020-09-22 21:04] LABS: Partial Thromboplastin Time 29.8 SEC (24.1-38.0)
--- NOTE | 2020-09-22 21:06 | PC.NURSE ---
SPO2 SENSOR MOVED TO FOREHEAD, SPO2 HAS IMPROVED PLETH. SPO2 88% NRB.
[2020-09-22 21:16] LABS: SLIDE REVIEW VERIFIED
[2020-09-22 21:23] LABS: Lipase 183 U/L (8-78)
--- NOTE | 2020-09-22 21:23 | ED_ITS ---
HPI - URI/Sore Throat General Chief Complaint: Upper Respiratory Symptoms Stated Complaint: covid sob weakness Time Seen by Provider: 09/22/20 20:27 Source: patient and EMS Mode of arrival: EMS History of Present Illness HPI Narrative: 70-year-old male with a past medical history of diabetes, hypertension, PE/DVT in bilateral lower extremity in the past currently on a baby aspirin no other blood thinner, pulmonary granuloma, anemia, chronic weakness/lymphedema of left lower extremity, COVID-19 positive on 09/15 with recent admission to our hospital presenting to the ED c/o worsening SOB, poor appetite/decreased p.o. intake times 3-4 days. States his not tolerated p.o. in days. Denies fever, chills, abdominal pain, vomiting/diarrhea, new or worsening LE edema, chest pain Related Data Home Medications Medication Instructions Recorded Confirmed aspirin 81 mg tablet,delayed 81 mg PO DAILY 08/04/20 09/23/20 release ferrous sulfate 325 mg (65 mg 325 mg PO BID 08/04/20 09/23/20 iron) tablet lisinopril 20 mg tablet 20 mg PO DAILY 08/04/20 09/23/20 Previous Rx's Medication Instructions Recorded atenolol 25 mg tablet 25 mg PO DAILY 90 Days #90 tab 08/04/20 pravastatin 20 mg tablet 20 mg PO DAILY 90 Days #90 tab 08/04/20 mecobalamin (vitamin B12) 1,000 1,000 mcg PO DAILY #90 tab 08/16/20 mcg chewable tablet potassium chloride 8 mEq 8 meq PO DAILY 30 Days #30 tab 08/16/20 tablet,extended release dextromethorphan-guaifenesin 10 ml PO Q4-8H PRN #237 ml 09/16/20 [Robitussin Cough-Chest Triston DM] metformin 500 mg PO BID #360 tab 09/16/20 Allergies Allergy/AdvReac Type Severity Reaction Status Date / Time No Known Allergies Allergy Verified 08/04/20 20:40 [No Known Allergies*] Review of Systems Review of Systems: Constitutional: No Fever, No Chills, No Night Sweats, + Fatigue, + Malaise ENT/Mouth: No sore throat, No Rhinorrhea Eyes: No Eye Pain, No Swelling, No Redness, No Foreign Body, No Discharge, No Vision Changes Cardiovascular: No Chest Pain, + SOB, + Dyspnea on Exertion, No Orthopnea, + Edema Respiratory: + Cough, No Sputum, No Wheezing Gastrointestinal: No Nausea, No Vomiting, No Diarrhea, No Constipation, No Abdominal pain Genitourinary: No Dysuria, No Urinary Frequency, No Hematuria Musculoskeletal: No joint pain, No Myalgias, No Joint Swelling Skin: No Skin Lesions, No rash Neuro: + Weakness, No Numbness, No Dizziness, No Headache Yes all other systems are reviewed and are negative [facility] Past Medical History Medical History (Updated 09/23/20 @ 01:31 by CARRIE Arzate) Anemia Benign essential hypertension Diabetes mellitus DVT (deep venous thrombosis) HTN (hypertension) Overweight (BMI 25.0-29.9) Pulmonary embolism Pulmonary granuloma Pure hypercholesterolemia Social History Social History Household Members: Other Housing: House Alcohol intake: never Smoking Status: Never smoker Advance Directives: No Advance Directives Information Provided: No service: No Physical Exam Vital Signs: Vital Signs: Last Vital Signs Temp 98.6 F 09/23/20 01:52 Pulse 65 09/23/20 01:50 Resp 20 09/23/20 01:50 BP 143/63 H 09/23/20 01:50 Pulse Ox 93 09/23/20 01:50 Body Mass Index 49.3 Const: General: cooperative Orientation/consciousness: patient oriented x3 Limitations: no limitations HENMT: Head: Yes normal to inspection Ears: hearing grossly normal bilaterally General nose exam: Normal external nose present Face and sinus: Yes normal facial exam Eyes: General: appearance normal, both eyes and all related structures EOM: EOMs intact bilaterally Neck: Neck: Yes normal visual inspection Resp: Effort & Inspection: normal respiratory effort and tachypneic Auscultation: crackles bilateral at the base Cardio: Rate: regular rate Heart sounds: S1 normal heart sound present and S2 normal heart sound present GI: Inspection: Yes normal to inspection Palpation (GI): Soft to palpation, nontender, no guarding and not rigid Skin: Rashes: no rashes Wounds: no wounds Neuro: General: patient oriented x3 Gait exam (Neuro): Normal gait present Extrem: General: Yes normal to inspection Course Course Course Narrative: Patient satting 88-90% on non-rebreather switched to high-flow nasal cannula. Unable to complete Albuterol neb treatment due to hypoxia -troponin 417 > EKG without STEMI likely demand ischemia. Lactic 5 > likely from dehydration/WOB >> low concern for severe sepsis as known viral etiology -2136--MARVIN with creatinine at 2.27 likely from dehydration, LDH/CPK and CRP elevated XR chest 1V IMPRESSION: Low lung volumes with bibasilar atelectasis. -D-dimer elevated to 1852 > unable to obtain CTA due to renal function, will obtain dry CT chest and CT AP, patient can have V/Q upon admission -5--Case discussed with hospitalist, will initiate empiric IV Ceftriaxone & Doxycycline and 1 time dose IV Lovenox to cover for potential PE -6--repeat lactic improved to 3.0, repeat troponin 405 UT unlikely. Cardiology, Dr. Myles aware CT chest wo con IMPRESSION: 1. New extensive infiltrates in both lungs, some confluent with air bronchograms other groundglass. The findings certainly could be secondary to Covid 19. Although the denser lower lobe consolidations with air bronchograms are not entirely typical, these could be due to bacterial pneumonia or possibly even aspiration. 2. Gaseous colonic distention without an obvious obstructing lesion. This could represent an ileus. 3. Bilateral renal cysts which appear complex, but stable > Flagyl added -0125--there is now concern for bacterial infection. Additional IVF ordered. Patient's ideal body weight is 78 kg x 30cc = 2,340cc IVF MDM - URI/Sore Throat MDM Narrative Medical decision making narrative: 70-year-old male with a past medical history of diabetes, hypertension, PE/DVT in bilateral lower extremity in the past currently on a baby aspirin no other blood thinner, pulmonary granuloma, anemia, chronic weakness/lymphedema of left lower extremity, COVID-19 positive on 09/15 with recent admission to our hospital presenting to the ED c/o worsening SOB, poor appetite/decreased p.o. intake times 3-4 days. On exam hypoxic, tachypneic, ill-appearing, concern for worsening COVID-19 and dehydration. Rule out COVID pneumonia vs PE > although lower concern with patient with recent negative CTA and venous duplex. Rule out metabolic abnormalities Low concern for severe sepsis as known viral etiology Plan: EKG, labs, UA, CXR, albuterol, Decadron Medical Records Attestation: I reviewed the patient's medical records. Lab Data Attestation: I reviewed the patient's lab results. Result diagrams: 09/22/20 20:44 09/22/20 20:44 Labs: Lab Results 09/22/20 09/22/20 09/22/20 Range/Units 20:44 20:44 20:44 WBC 6.9 (4.8-10.8) X10*3/uL RBC 3.78 L (4.60-5.80) X10*6/uL Hgb 11.2 L (14.0-18.0) g/dl Hct 35.2 L (42-52) % MCV 93.1 (80-98) fL MCH 29.6 (27.0-33.0) pg MCHC 31.8 (31.0-36.0) g/dl RDW 14.6 (11.0-16.0) % Plt Count 195 D (160-400) X10*3/uL MPV 12.9 H (9.4-12.4) fL Immature Gran % (Auto) 0.7 H (0.0-0.4) % Neut % (Auto) 85.0 H (45-73) % Lymph % (Auto) 6.5 L (20-40) % [place] % (Auto) 7.8 (2-11) % Eos % (Auto) 0.0 (0-4) % Baso % (Auto) 0.0 (0-2) % Lymph # (Auto) 0.5 L (1.2-4.9) X10*3/uL [place] # (Auto) 0.5 (0.1-1.2) X10*3/uL Eos # (Auto) 0.0 (0.0-0.4) X10*3/uL Baso # (Auto) 0.0 (0.0-0.2) X10*3/uL Abs Immat Gran (auto) 0.05 H (0.00-0.03) X10*3/uL Absolute Neuts (auto) 5.8 (2.0-8.3) X10*3/uL Absolute Nucleated RBC 0.020 H (0.0-0.012) X10*3/uL Nucleated RBC % (auto) 0.3 H (0.0-0.2) /100WBC Smear Tech's Comments VERIFIED PT 15.8 H (10.8-13.0) SEC INR 1.3 H (0.9-1.1) APTT 29.8 (24.1-38.0) SEC D-Dimer 1852 NG/ML O2 Saturation % ABG pH at Pt Temp (7.35-7.45) ABG pH (Temp Correct) (7.35-7.45) ABG pCO2 at Pt Temp (32-45) mmHg ABG pCO2 (Temp Corrct (32-45) mmHg ABG pO2 at Pt Temp (83-108) mmHg ABG pO2 (Temp Correct (83-108) ABG HCO3 (22-26) mmol/L ABG Base Excess (Actual) mmol/L Sodium 148 H (135-145) mmol/L Potassium 4.6 (3.3-5.1) mmol/L Chloride 110 H (96-108) mmol/L Carbon Dioxide 22 (22-29) mmol/L Anion Gap 21 H (12-20) BUN 63 H D (9-16) mg/dL Creatinine 2.27 H (0.5-1.4) mg/dL Estim Creat Clear Calc 47.5 Estimated GFR 29 Random Glucose 194 H D (60-115) mg/dL Lactic Acid (0.5-2.0) mmol/L Lactic Acid Fup @ 2Hr (0.5-2.0) mmol/L Calcium 8.3 L D (8.4-10.2) mg/dL Magnesium 1.8 (1.6-2.6) mg/dL Ferritin (20-250) ng/mL Total Bilirubin 0.4 (0.0-1.0) mg/dL Direct Bilirubin 0.2 (0.0-0.5) mg/dL AST 54 H (5-37) U/L ALT 20 (0-40) U/L Alkaline Phosphatase 48 D (39-117) U/L Lactate Dehydrogenase 749 H (118-273) U/L Total Creatine Kinase 710 H (38-174) U/L Troponin I High Sens (<3.5-35.0) ng/L C-Reactive Protein 12.66 H (< or = 0.50) mg/dL B-Natriuretic Peptide (<100) pg/mL Total Protein 6.8 (6.5-8.0) g/dL Albumin 3.7 (3.5-5.0) g/dL Lipase (8-78) U/L Procalcitonin ng/mL 09/22/20 09/22/20 09/22/20 Range/Units 20:44 20:44 20:44 WBC (4.8-10.8) X10*3/uL RBC (4.60-5.80) X10*6/uL Hgb (14.0-18.0) g/dl Hct (42-52) % MCV (80-98) fL MCH (27.0-33.0) pg MCHC (31.0-36.0) g/dl RDW (11.0-16.0) % Plt Count (160-400) X10*3/uL MPV (9.4-12.4) fL Immature Gran % (Auto) (0.0-0.4) % Neut % (Auto) (45-73) % Lymph % (Auto) (20-40) % [place] % (Auto) (2-11) % Eos % (Auto) (0-4) % Baso % (Auto) (0-2) % Lymph # (Auto) (1.2-4.9) X10*3/uL [place] # (Auto) (0.1-1.2) X10*3/uL Eos # (Auto) (0.0-0.4) X10*3/uL Baso # (Auto) (0.0-0.2) X10*3/uL Abs Immat Gran (auto) (0.00-0.03) X10*3/uL Absolute Neuts (auto) (2.0-8.3) X10*3/uL Absolute Nucleated RBC (0.0-0.012) X10*3/uL Nucleated RBC % (auto) (0.0-0.2) /100WBC Smear Tech's Comments PT (10.8-13.0) SEC INR (0.9-1.1) APTT (24.1-38.0) SEC D-Dimer NG/ML O2 Saturation % ABG pH at Pt Temp (7.35-7.45) ABG pH (Temp Correct) (7.35-7.45) ABG pCO2 at Pt Temp (32-45) mmHg ABG pCO2 (Temp Corrct (32-45) mmHg ABG pO2 at Pt Temp (83-108) mmHg ABG pO2 (Temp Correct (83-108) ABG HCO3 (22-26) mmol/L ABG Base Excess (Actual) mmol/L Sodium (135-145) mmol/L Potassium (3.3-5.1) mmol/L Chloride (96-108) mmol/L Carbon Dioxide (22-29) mmol/L Anion Gap (12-20) BUN (9-16) mg/dL Creatinine (0.5-1.4) mg/dL Estim Creat Clear Calc Estimated GFR Random Glucose (60-115) mg/dL Lactic Acid 5.0 H* (0.5-2.0) mmol/L Lactic Acid Fup @ 2Hr (0.5-2.0) mmol/L Calcium (8.4-10.2) mg/dL Magnesium (1.6-2.6) mg/dL Ferritin 1656 H (20-250) ng/mL Total Bilirubin (0.0-1.0) mg/dL Direct Bilirubin (0.0-0.5) mg/dL AST (5-37) U/L ALT (0-40) U/L Alkaline Phosphatase (39-117) U/L Lactate Dehydrogenase (118-273) U/L Total Creatine Kinase (38-174) U/L Troponin I High Sens 417.4 H D (<3.5-35.0) ng/L C-Reactive Protein (< or = 0.50) mg/dL B-Natriuretic Peptide 171 H (<100) pg/mL Total Protein (6.5-8.0) g/dL Albumin (3.5-5.0) g/dL Lipase 183 H (8-78) U/L Procalcitonin ng/mL 09/22/20 09/22/20 09/23/20 Range/Units 20:44 21:44 00:20 WBC (4.8-10.8) X10*3/uL RBC (4.60-5.80) X10*6/uL Hgb (14.0-18.0) g/dl Hct (42-52) % MCV (80-98) fL MCH (27.0-33.0) pg MCHC (31.0-36.0) g/dl RDW (11.0-16.0) % Plt Count (160-400) X10*3/uL MPV (9.4-12.4) fL Immature Gran % (Auto) (0.0-0.4) % Neut % (Auto) (45-73) % Lymph % (Auto) (20-40) % [place] % (Auto) (2-11) % Eos % (Auto) (0-4) % Baso % (Auto) (0-2) % Lymph # (Auto) (1.2-4.9) X10*3/uL [place] # (Auto) (0.1-1.2) X10*3/uL Eos # (Auto) (0.0-0.4) X10*3/uL Baso # (Auto) (0.0-0.2) X10*3/uL Abs Immat Gran (auto) (0.00-0.03) X10*3/uL Absolute Neuts (auto) (2.0-8.3) X10*3/uL Absolute Nucleated RBC (0.0-0.012) X10*3/uL Nucleated RBC % (auto) (0.0-0.2) /100WBC Smear Tech's Comments PT (10.8-13.0) SEC INR (0.9-1.1) APTT (24.1-38.0) SEC D-Dimer NG/ML O2 Saturation 83.0 % ABG pH at Pt Temp 7.40 (7.35-7.45) ABG pH (Temp Correct) 7.40 (7.35-7.45) ABG pCO2 at Pt Temp 28 L (32-45) mmHg ABG pCO2 (Temp Corrct 28 L (32-45) mmHg ABG pO2 at Pt Temp 53 L (83-108) mmHg ABG pO2 (Temp Correct 52 L (83-108) ABG HCO3 17 L (22-26) mmol/L ABG Base Excess (Actual) -5.8 mmol/L Sodium (135-145) mmol/L Potassium (3.3-5.1) mmol/L Chloride (96-108) mmol/L Carbon Dioxide (22-29) mmol/L Anion Gap (12-20) BUN (9-16) mg/dL Creatinine (0.5-1.4) mg/dL Estim Creat Clear Calc Estimated GFR Random Glucose (60-115) mg/dL Lactic Acid (0.5-2.0) mmol/L Lactic Acid Fup @ 2Hr (0.5-2.0) mmol/L Calcium (8.4-10.2) mg/dL Magnesium (1.6-2.6) mg/dL Ferritin (20-250) ng/mL Total Bilirubin (0.0-1.0) mg/dL Direct Bilirubin (0.0-0.5) mg/dL AST (5-37) U/L ALT (0-40) U/L Alkaline Phosphatase (39-117) U/L Lactate Dehydrogenase (118-273) U/L Total Creatine Kinase (38-174) U/L Troponin I High Sens 405.3 H (<3.5-35.0) ng/L C-Reactive Protein (< or = 0.50) mg/dL B-Natriuretic Peptide (<100) pg/mL Total Protein (6.5-8.0) g/dL Albumin (3.5-5.0) g/dL Lipase (8-78) U/L Procalcitonin 0.36 ng/mL 09/23/20 Range/Units 00:20 WBC (4.8-10.8) X10*3/uL RBC (4.60-5.80) X10*6/uL Hgb (14.0-18.0) g/dl Hct (42-52) % MCV (80-98) fL MCH (27.0-33.0) pg MCHC (31.0-36.0) g/dl RDW (11.0-16.0) % Plt Count (160-400) X10*3/uL MPV (9.4-12.4) fL Immature Gran % (Auto) (0.0-0.4) % Neut % (Auto) (45-73) % Lymph % (Auto) (20-40) % [place] % (Auto) (2-11) % Eos % (Auto) (0-4) % Baso % (Auto) (0-2) % Lymph # (Auto) (1.2-4.9) X10*3/uL [place] # (Auto) (0.1-1.2) X10*3/uL Eos # (Auto) (0.0-0.4) X10*3/uL Baso # (Auto) (0.0-0.2) X10*3/uL Abs Immat Gran (auto) (0.00-0.03) X10*3/uL Absolute Neuts (auto) (2.0-8.3) X10*3/uL Absolute Nucleated RBC (0.0-0.012) X10*3/uL Nucleated RBC % (auto) (0.0-0.2) /100WBC Smear Tech's Comments PT (10.8-13.0) SEC INR (0.9-1.1) APTT (24.1-38.0) SEC D-Dimer NG/ML O2 Saturation % ABG pH at Pt Temp (7.35-7.45) ABG pH (Temp Correct) (7.35-7.45) ABG pCO2 at Pt Temp (32-45) mmHg ABG pCO2 (Temp Corrct (32-45) mmHg ABG pO2 at Pt Temp (83-108) mmHg ABG pO2 (Temp Correct (83-108) ABG HCO3 (22-26) mmol/L ABG Base Excess (Actual) mmol/L Sodium (135-145) mmol/L Potassium (3.3-5.1) mmol/L Chloride (96-108) mmol/L Carbon Dioxide (22-29) mmol/L Anion Gap (12-20) BUN (9-16) mg/dL Creatinine (0.5-1.4) mg/dL Estim Creat Clear Calc Estimated GFR Random Glucose (60-115) mg/dL Lactic Acid (0.5-2.0) mmol/L Lactic Acid Fup @ 2Hr 3.0 H* (0.5-2.0) mmol/L Calcium (8.4-10.2) mg/dL Magnesium (1.6-2.6) mg/dL Ferritin (20-250) ng/mL Total Bilirubin (0.0-1.0) mg/dL Direct Bilirubin (0.0-0.5) mg/dL AST (5-37) U/L ALT (0-40) U/L Alkaline Phosphatase (39-117) U/L Lactate Dehydrogenase (118-273) U/L Total Creatine Kinase (38-174) U/L Troponin I High Sens (<3.5-35.0) ng/L C-Reactive Protein (< or = 0.50) mg/dL B-Natriuretic Peptide (<100) pg/mL Total Protein (6.5-8.0) g/dL Albumin (3.5-5.0) g/dL Lipase (8-78) U/L Procalcitonin ng/mL ECG Data Attestation: I personally reviewed and interpreted this ECG as follows: ECG interpretation date: 09/22/20 ECG interpretation time: 20:52 Interpretation: EKG normal sinus rhythm. Rate of 83. No STEMI Discharge Plan Discharge Clinical Impression: Pneumonia due to COVID-19 virus, Ileus, Acute dehydration
--- NOTE | 2020-09-22 21:29 | PC.NURSE ---
PT PLACED ON HIGH FLOW NC, BY RT.
[2020-09-22 21:31] LABS: B Type Natriuretic Peptide 171 pg/mL (<100); Troponin-I High Sensitivity 417.4 ng/L (<3.5-35.0)
[2020-09-22 21:33] LABS: Alanine Aminotransferase 20 U/L (0-40); Albumin Level 3.7 g/dL (3.5-5.0); Alkaline Phosphatase 48 U/L (39-117); Anion Gap 21 (12-20); Aspartate Amino Transferase 54 U/L (5-37); Bilirubin Direct 0.2 mg/dL (0.0-0.5); Bilirubin Total 0.4 mg/dL (0.0-1.0); Blood Urea Nitrogen 63 mg/dL (9-16); C Reactive Protein 12.66 mg/dL (< or = 0.50); Calcium 8.3 mg/dL (8.4-10.2); Carbon Dioxide 22 mmol/L (22-29); Chloride 110 mmol/L (96-108); Creatinine Clr Calc Pharmacy 47.5; Estimated Glomerular Filt Rate 29; Glucose Random 194 mg/dL (60-115); Lactate Dehydrogenase 749 U/L (118-273); Magnesium 1.8 mg/dL (1.6-2.6); Potassium 4.6 mmol/L (3.3-5.1); Procalcitonin 0.36 ng/mL; Sodium 148 mmol/L (135-145); Total Protein 6.8 g/dL (6.5-8.0)
[2020-09-22] MEDS: 0.9 % Sodium Chloride 1,000 ML 999 ML IVCONT (21:43)
[2020-09-22 21:52] LABS: ABG Base Excess -5.8 mmol/L; ABG HCO3 17 mmol/L (22-26); ABG pCO2 28 mmHg (32-45); ABG pCO2 TC 28 mmHg (32-45); ABG pO2 53 mmHg (83-108); ABG pO2 TC 52 (83-108)
--- NOTE | 2020-09-22 21:58 | PC.NURSE ---
50% 0XYGEN VIA NC HIGH FLOW.
[2020-09-22 22:08] LABS: D Dimer 1852 NG/ML
[2020-09-22 22:31] LABS: ABG Refer to POC result
--- NOTE | 2020-09-22 22:36 | PC.NURSE ---
PT'S SPO2 90% ON HIGH FLOW 02 VIA NC. PT PLACED ON ADDITIONAL NRB MASK PER REQUEST OF PROVIDER. SPO2 IMPROVED TO 95%
[2020-09-22 22:48] LABS: Reflex Lactate? Lactic Acid Added
[2020-09-23] VITALS (16 sets, daily range): BP systolic 111–145; BP diastolic 50–65; PULSE 53–72; RESP 14–24; TEMP 36.3–37; O2SAT 80–96; BMI 26.6
--- NOTE | 2020-09-23 00:24 | PC.NURSE ---
PT COULD NOT TOLERATE SUPINE ON JUST NRB MASK, PT NEEDED TO STAY ON HIGH FLOW NC WHILE IN CT SCAN. PT BACK IN ROOM NOW, RT AT BEDSIDE.
[2020-09-23 00:51] LABS: Ferritin 1656 ng/mL (20-250)
[2020-09-23 01:10] LABS: Troponin-I High Sensitivity 405.3 ng/L (<3.5-35.0)
--- NOTE | 2020-09-23 01:19 | PM.IMHP ---
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 Patient mentioned that he was tested positive for COVID-19 and on September 15 2020; and he was discharged on September 16 from the hospital. He was doing okay for the past few days but over the past 3-4 days he has been having increased shortness of breath associated with dry cough. Denies any fevers nausea vomiting diarrhea. Since he has been passing gas. Have been having regular bowel movements. Denies any abdominal pain. Denies any chest pain palpitations. Mention that his shortness of breath has been gradually worsening and subsequently presented to the ER for further evaluation. Review of all other systems is negative except mentioned above ER course: Per ER team patient was noted to be in significant hypoxia on presentation saturating at 40% on room air subsequently placed on non-rebreather and high-flow with improvement in oxygenation to 90 dB worsen patient patient was not in respiratory distress. Will patient was speaking in full sentences. CT chest showed infiltrates. D-dimer was elevated. But noted to have MARVIN home. Given Lovenox empirically. Home also noted to have lactic acidosis. Patient was given Decadron and empiric antibiotics. Home patient respiratory rate was 18. Patient troponin were slightly elevated a presumed to be demand. Notified Cardiology -> no acute intervention. Follow-up troponins trending down. Admitted to the hospital for further management. [facility] Medical History Anemia Benign essential hypertension Diabetes mellitus DVT (deep venous thrombosis) HTN (hypertension) Overweight (BMI 25.0-29.9) Pulmonary embolism Pulmonary granuloma Pure hypercholesterolemia Surgical History H/O bilateral cataract extraction History of cholecystectomy Status post bilateral total hip replacement Social History Household Members: Family Housing: House Alcohol intake: never Smoking Status: Never smoker Second Hand Smoke Exposure: No service: No Current occupational status: retired Meds Allergies Allergy/AdvReac Type Severity Reaction Status Date / Time No Known Allergies Allergy Verified 08/04/20 20:40 [No Known Allergies*] Active Medications: Current Medications Generic Name Dose Route Start Last Admin Trade Name Freq PRN Reason Stop Dose Admin Acetaminophen 650 mg 09/23/20 01:11 Acetaminophen 325 Mg Tablet PO Q6H PRN Pain, Mild (Pain Scale 1-3) Albuterol Sulfate 4 puff 09/23/20 01:16 Albuterol Sulfate 90 Mcg 8 Gm Inhaler INHALE Q2H PRN Shortness of Breath/Wheezing Dexamethasone Sodium Phosphate 6 mg 09/23/20 09:00 Dexamethasone Sod Phosphate 4 Mg/Ml Vial IVPUSH DAILY [facility] Doxycycline Hyclate 100 mg 09/23/20 01:15 Doxycycline Hyclate 100 Mg Tablet PO Q12H [facility] Doxycycline Hyclate 100 mg/ 250 mls @ 166.67 mls/hr 09/23/20 00:39 Sodium Chloride IV 09/23/20 02:08 ONCE ONE Sodium Chloride 1,000 mls @ 500 mls/hr 09/23/20 01:00 Ns IVCONT 09/23/20 02:59 .Q2H [facility] Ceftriaxone Sodium 1 gm/ 50 mls @ 100 mls/hr 09/23/20 01:15 Sodium Chloride IV Q24H [facility] Insulin Human Lispro 0 unit 09/23/20 07:30 Insulin Lispro 100 Unit/Ml 3 Ml Vial SUBCUT QIDACHS [facility] Protocol Pharmacy Consult 1 each 09/22/20 20:27 Consult Rx Perform Med Rec MISCELLANE ONCE PRN Consult order Sodium Chloride 3 ml 09/23/20 08:00 0.9 % Sodium Chloride Flush 3 Ml Syringe IVFLUSH QSHIFT [facility] Home Medications Medication Instructions Recorded Confirmed Last Taken Type aspirin 81 mg tablet,delayed 81 mg PO DAILY 08/04/20 09/23/20 09/22/20 History release ferrous sulfate 325 mg (65 mg 325 mg PO BID 08/04/20 09/23/20 09/22/20 History iron) tablet lisinopril 20 mg tablet 20 mg PO DAILY 08/04/20 09/23/20 09/22/20 History Physical Exam Vital Signs and Narrative: Vital Signs: Last Vital Signs Temp 97.8 F 09/22/20 20:29 Pulse 71 09/22/20 23:38 Resp 18 09/23/20 00:19 BP 119/59 L 09/22/20 23:38 Pulse Ox 95 09/22/20 23:38 Body Mass Index 49.3 Gen: Appears be in no acute distress; on high-flow non-rebreather. Able to speak in full sentences. Does not seem to be in distress. HEENT: NCAT, Moist mucosa. Pulmonary: Course breath sounds, fair air entry CVS: Normal S1-S2 Abdomen: BS+, Soft, Nontender Extremities: Warm well perfused Neuro: Alert and awake. Results Labs CBC and Chem 7: 09/24/20 06:48 09/26/20 07:26 Labs: Laboratory Results - last 24 hr 09/22/20 09/22/20 09/22/20 20:44 20:44 20:44 MCV 93.1 MCH 29.6 MCHC 31.8 RDW 14.6 Plt Count 195 D MPV 12.9 H Immature Gran % (Auto) 0.7 H Neut % (Auto) 85.0 H Lymph % (Auto) 6.5 L [place] % (Auto) 7.8 Eos % (Auto) 0.0 Baso % (Auto) 0.0 Lymph # (Auto) 0.5 L [place] # (Auto) 0.5 Eos # (Auto) 0.0 Baso # (Auto) 0.0 Abs Immat Gran (auto) 0.05 H Absolute Neuts (auto) 5.8 Absolute Nucleated RBC 0.020 H Nucleated RBC % (auto) 0.3 H Smear Tech's Comments VERIFIED PT 15.8 H INR 1.3 H APTT 29.8 D-Dimer 1852 O2 Saturation ABG pH at Pt Temp ABG pH (Temp Correct) ABG pCO2 at Pt Temp ABG pCO2 (Temp Corrct ABG pO2 at Pt Temp ABG pO2 (Temp Correct ABG HCO3 ABG Base Excess (Actual) Anion Gap 21 H Estim Creat Clear Calc 47.5 Estimated GFR 29 Random Glucose 194 H D Lactic Acid Lactic Acid Fup @ 2Hr Calcium 8.3 L D Magnesium 1.8 Ferritin Total Bilirubin 0.4 Direct Bilirubin 0.2 AST 54 H ALT 20 Alkaline Phosphatase 48 D Lactate Dehydrogenase 749 H Total Creatine Kinase 710 H Troponin I High Sens C-Reactive Protein 12.66 H B-Natriuretic Peptide Total Protein 6.8 Albumin 3.7 Lipase Procalcitonin 09/22/20 09/22/20 09/22/20 20:44 20:44 20:44 MCV MCH MCHC RDW Plt Count MPV Immature Gran % (Auto) Neut % (Auto) Lymph % (Auto) [place] % (Auto) Eos % (Auto) Baso % (Auto) Lymph # (Auto) [place] # (Auto) Eos # (Auto) Baso # (Auto) Abs Immat Gran (auto) Absolute Neuts (auto) Absolute Nucleated RBC Nucleated RBC % (auto) Smear Tech's Comments PT INR APTT D-Dimer O2 Saturation ABG pH at Pt Temp ABG pH (Temp Correct) ABG pCO2 at Pt Temp ABG pCO2 (Temp Corrct ABG pO2 at Pt Temp ABG pO2 (Temp Correct ABG HCO3 ABG Base Excess (Actual) Anion Gap Estim Creat Clear Calc Estimated GFR Random Glucose Lactic Acid 5.0 H* Lactic Acid Fup @ 2Hr Calcium Magnesium Ferritin 1656 H Total Bilirubin Direct Bilirubin AST ALT Alkaline Phosphatase Lactate Dehydrogenase Total Creatine Kinase Troponin I High Sens 417.4 H D C-Reactive Protein B-Natriuretic Peptide 171 H Total Protein Albumin Lipase 183 H Procalcitonin 09/22/20 09/22/20 09/23/20 20:44 21:44 00:20 MCV MCH MCHC RDW Plt Count MPV Immature Gran % (Auto) Neut % (Auto) Lymph % (Auto) [place] % (Auto) Eos % (Auto) Baso % (Auto) Lymph # (Auto) [place] # (Auto) Eos # (Auto) Baso # (Auto) Abs Immat Gran (auto) Absolute Neuts (auto) Absolute Nucleated RBC Nucleated RBC % (auto) Smear Tech's Comments PT INR APTT D-Dimer O2 Saturation 83.0 ABG pH at Pt Temp 7.40 ABG pH (Temp Correct) 7.40 ABG pCO2 at Pt Temp 28 L ABG pCO2 (Temp Corrct 28 L ABG pO2 at Pt Temp 53 L ABG pO2 (Temp Correct 52 L ABG HCO3 17 L ABG Base Excess (Actual) -5.8 Anion Gap Estim Creat Clear Calc Estimated GFR Random Glucose Lactic Acid Lactic Acid Fup @ 2Hr Calcium Magnesium Ferritin Total Bilirubin Direct Bilirubin AST ALT Alkaline Phosphatase Lactate Dehydrogenase Total Creatine Kinase Troponin I High Sens 405.3 H C-Reactive Protein B-Natriuretic Peptide Total Protein Albumin Lipase Procalcitonin 0.36 09/23/20 00:20 MCV MCH MCHC RDW Plt Count MPV Immature Gran % (Auto) Neut % (Auto) Lymph % (Auto) [place] % (Auto) Eos % (Auto) Baso % (Auto) Lymph # (Auto) [place] # (Auto) Eos # (Auto) Baso # (Auto) Abs Immat Gran (auto) Absolute Neuts (auto) Absolute Nucleated RBC Nucleated RBC % (auto) Smear Tech's Comments PT INR APTT D-Dimer O2 Saturation ABG pH at Pt Temp ABG pH (Temp Correct) ABG pCO2 at Pt Temp ABG pCO2 (Temp Corrct ABG pO2 at Pt Temp ABG pO2 (Temp Correct ABG HCO3 ABG Base Excess (Actual) Anion Gap Estim Creat Clear Calc Estimated GFR Random Glucose Lactic Acid Lactic Acid Fup @ 2Hr 3.0 H* Calcium Magnesium Ferritin Total Bilirubin Direct Bilirubin AST ALT Alkaline Phosphatase Lactate Dehydrogenase Total Creatine Kinase Troponin I High Sens C-Reactive Protein B-Natriuretic Peptide Total Protein Albumin Lipase Procalcitonin Imaging Radiologist's Impressions: Impressions Chest X-Ray 09/22/20 20:28 IMPRESSION: Low lung volumes with bibasilar atelectasis. Abdomen/Pelvis CT 09/23/20 00:01 IMPRESSION: 1. New extensive infiltrates in both lungs, some confluent with air bronchograms other groundglass. The findings certainly could be secondary to Covid 19. Although the denser lower lobe consolidations with air bronchograms are not entirely typical, these could be due to bacterial pneumonia or possibly even aspiration. 2. Gaseous colonic distention without an obvious obstructing lesion. This could represent an ileus. 3. Bilateral renal cysts which appear complex, but stable. Chest CT 09/23/20 00:01 IMPRESSION: 1. New extensive infiltrates in both lungs, some confluent with air bronchograms other groundglass. The findings certainly could be secondary to Covid 19. Although the denser lower lobe consolidations with air bronchograms are not entirely typical, these could be due to bacterial pneumonia or possibly even aspiration. 2. Gaseous colonic distention without an obvious obstructing lesion. This could represent an ileus. 3. Bilateral renal cysts which appear complex, but stable. Assessment and Plan (1) Pneumonia due to COVID-19 virus: Status: Acute 70-year-old male with a past medical history of hypertension, hyperlipidemia, diabetes, 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 Acute hypoxic respiratory failure: Likely in the setting of COVID-[address] chest showed infiltrates. Patient placed on non-rebreather/high-flow. Currently respiratory rate is 18. Speaks in full sentences. Will continue to monitor. Will obtain a V/Q scan Patient given an empiric dose of Lovenox-1.5mg/kg x1-> if follow-up V/Q scan negative. Will defer to the a.m. team to reduce the dose of Lovenox to 40 mg daily for DVT prophylaxis. Pulmonology consulted COVID-19 pneumonia: Continue dexamethasone. Empirically started on ceftriaxone and doxycycline. Id consult for further recommendations including antibiotics and remdesivir. Lactic acidosis: Likely in the setting of dehydration/hypoxia/question sepsis. Given 1 L of IV fluids in the ER. Improving. Will continue to monitor. Will hold of fluids for now in the setting of COVID-19 pneumonia. MARVIN: Appears prerenal. Patient given gentle fluids in the ER. Will be judicious with IV fluids given COVID-19 pneumonia. If the follow-up creatinine remains high will give another 500 cc IV fluids. Hypernatremia: Likely in setting of dehydration. Will continue to monitor. Elevated troponins: Patient denies any chest pain. EKG nonischemic. Follow-up troponins trending down. Will obtain echocardiogram. Dr Myles was notified. Ileus: Patient mentions he has been passing gas. Abdominal examination is benign. Supportive care. Will consult General surgery Diabetes: Insulin sliding scale Code status: Full code.
[2020-09-23] MEDS: 0.9 % Sodium Chloride 1,000 ML 999 ML IVCONT (01:57)
--- NOTE | 2020-09-23 02:04 | PC.NURSE ---
PT HAS BEEN RESTING COMFORTABLY WHILE IN ER, PT WAS NEVER IN ANY VISABLE RESPIRATORY DISTRESS. PT'S SPO2 IN MID 80'S WHILE ON NRB MASK AND SUPINE, LOW 90'S WHILE SEATED UPRIGHT. PT CURRENTLY ON HIGH FLOW NC ONLY, NOT ON SUPPLEMENTAL NRB MASK.
--- NOTE | 2020-09-23 02:06 | PC.NURSE ---
PROVIDER WANTS PT TO RECEIVE A TOTAL OF 2340 ML NORMAL SALINE FOR SEPSIS PROTOCOL.
[2020-09-23 02:22] LABS: Reflex Lactate? 2 Y
[2020-09-23] MEDS: cefTRIAXone sodium 1 GM in 0.9 % Sodium Chloride 50 ML IV ×2 (02:22→23:32)
[2020-09-23] MEDS: metroNIDAZOLE/NS 500 MG/100 ML PIGGYBACK 100 MG IV (02:50)
[2020-09-23 03:55] LABS: ~Lactic Acid-LAB USE ONLY 2.6 mmol/L (0.5-2.0)
--- NOTE | 2020-09-23 04:31 | PC.NURSE ---
PT'S SPO2 DROPPED TO 85% ON HIGH FLOW NC. PT PLACED BACK ON NRB.
[2020-09-23] MEDS: Doxycycline Hyclate 100 MG in 0.9 % Sodium Chloride 250 ML 166.67 MG IV (04:34)
--- NOTE | 2020-09-23 04:34 | PC.NURSE ---
PT RECEIVED ANTIBIOTICS IN FLUID, 250ML, 100ML AND 50 ML, ALONG WIT 2 L NS.
--- NOTE | 2020-09-23 04:37 | PC.NURSE ---
N IN 500ML BAG OF NS. NOT ADMINISTERED.
--- NOTE | 2020-09-23 04:39 | PC.NURSE ---
PT'S SPO2 STILL ONLY 87% ON HIGH FLOW NC AND NRB MASK AT 15 LPM.
[2020-09-23] MEDS: Enoxaparin Sodium 100 MG/ML SYRINGE 90 MG SUBCUT (05:51)
[2020-09-23] MEDS: 0.9 % Sodium Chloride Flush 3 ML SYRINGE IVFLUSH ×3 (07:18→23:32)
[2020-09-23 07:23] LABS: Basophils Percent Auto 0.1 % (0-2); Hematocrit 32.5 % (42-52); Hemoglobin 10.3 g/dl (14.0-18.0); Imm Gran Abs Auto 0.06 X10*3/uL (0.00-0.03); Imm Gran Pct Auto 0.8 % (0.0-0.4); Lymphocytes Absolute Auto 0.6 X10*3/uL (1.2-4.9); Lymphocytes Percent Auto 7.9 % (20-40); MANUAL DIFF FLAG SCAN; Mean Corpuscular HGB Conc 31.7 g/dl (31.0-36.0); Mean Corpuscular Hemoglobin 29.7 pg (27.0-33.0); Mean Corpuscular Volume 93.7 fL (80-98); Monocytes Absolute Auto 0.5 X10*3/uL (0.1-1.2); Monocytes Percent Auto 6.7 % (2-11); NRBC Pct Auto 0.3 /100WBC (0.0-0.2); Neutrophils Absolute Auto 6.2 X10*3/uL (2.0-8.3); Neutrophils Percent Auto 84.5 % (45-73); Platelet Count 153 X10*3/uL (160-400); Red Blood Count 3.47 X10*6/uL (4.60-5.80); Red Cell Distribution Width 14.5 % (11.0-16.0); SCAN SMEAR FLAG 1; White Blood Count 7.4 X10*3/uL (4.8-10.8)
[2020-09-23 07:44] LABS: SLIDE REVIEW VERIFIED
[2020-09-23 07:51] LABS: Anion Gap 20 (12-20); Blood Urea Nitrogen 64 mg/dL (9-16); Calcium 7.4 mg/dL (8.4-10.2); Carbon Dioxide 17 mmol/L (22-29); Chloride 116 mmol/L (96-108); Creatinine Clr Calc Pharmacy 39.7; Estimated Glomerular Filt Rate 36; Glucose Random 184 mg/dL (60-115); Potassium 4.5 mmol/L (3.3-5.1); Sodium 148 mmol/L (135-145)
[2020-09-23] MEDS: Pravastatin Sodium 20 MG TABLET PO (09:15)
[2020-09-23] MEDS: dexAMETHasone sod phosphate 4 MG/ML VIAL 6 MG IVPUSH (09:15)
[2020-09-23] MEDS: atenoloL 25 MG TABLET PO (09:15)
[2020-09-23] MEDS: Aspirin Enteric Coated 81 MG TABLET.DR PO (09:15)
--- NOTE | 2020-09-23 09:30 | MHC.CM.PN ---
Addendum entered by Fide Aguirre 09/23/20 12:23: PCP IS DAVIS HENDERSON Original Note: CM contacted pts brother, Gold ([phone]) who is pts only listed contact. Gold reports his son lives with the pt and assists him with care. He reports the pt is very sedentary but he does drive to the grocery store, pharmacy, and doctors appointments. Gold reports he does not know who the pts PCP is. He reports the pt was assigned to a different provider when his from [place] [id number]. He is unsure of the new providers name. CM will call [facility] office for this information. Gold reports the pt does not always use an assistive device in the home but always takes his cane when he goes out. He also reports the pt does have a HCP and he thought it was on file at [facility] however it is not in the EMR. Gold will see if he has a copy in his safe with pts other important documents. CM reviewed pts medicare rights with Fab who reports understanding. He requests a copy be mailed to him at his new address: [address] [place] [id number]. Task sent to registration to update Gold's address. [place] plan is home with resumption of family assistance. Family will transport at [place]
--- NOTE | 2020-09-23 09:37 | P.CONCA_ITS ---
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 He was COVID positive her last admission and was discharged home. He said he had shortness of breath over the last day or so. He was also coughing. These symptoms he presented to [facility]. His workup is consistent with COVID-19 pneumonia with some concern for superinfection. His blood workup showed evidence of mildly abnormal troponin level and will consider. On discussing with him he has no chest discomfort. He is short of breath because of the pneumonia. He was hypoxic on admission and is currently on supplemental oxygen. [facility] Past Medical History Medical History (Updated 09/23/20 @ 17:21 by Valentino Ortiz MD) Anemia Benign essential hypertension Diabetes mellitus DVT (deep venous thrombosis) HTN (hypertension) Overweight (BMI 25.0-29.9) Pulmonary embolism Pulmonary granuloma Pure hypercholesterolemia Surgical History Surgical History (Updated 09/23/20 @ 16:06 by Annika Villarreal MD) H/O bilateral cataract extraction History of cholecystectomy Status post bilateral total hip replacement Social History Social History Household Members: Family Housing: House Do you presently have visiting nurse or other home services: No Alcohol intake: never Smoking Status: Never smoker Second Hand Smoke Exposure: No Use of substances other than those prescribed or required for medical reasons: Yes Currently Displaying Signs/Symptoms of Drug Intoxication Withdrawal: No Any prior treatment program specific to substance use: No Have you been hit, kicked, punched, or otherwise hurt by someone within the past year? If so, by whom?: No Do you feel safe in your current relationship?: No Is there a partner from a previous relationship who is making you feel unsafe now?: No Advance Directives: No Advance Directives Information Provided: No Do you have thoughts of harming others: None Do you have a plan to hurt others: No Plan Recently lost weight without trying: Yes service: No Current occupational status: retired Meds Allergies Allergy/AdvReac Type Severity Reaction Status Date / Time No Known Allergies Allergy Verified 08/04/20 20:40 [No Known Allergies*] Active Medications: Current Medications Generic Name Dose Route Start Last Admin Trade Name Freq PRN Reason Stop Dose Admin Acetaminophen 650 mg 09/23/20 01:11 Acetaminophen 325 Mg Tablet PO Q6H PRN Pain, Mild (Pain Scale 1-3) Albuterol Sulfate 4 puff 09/23/20 01:16 Albuterol Sulfate 90 Mcg 8 Gm Inhaler INHALE Q2H PRN Shortness of Breath/Wheezing Aspirin 81 mg 09/23/20 09:00 09/23/20 09:15 Aspirin Enteric Coated 81 Mg Tablet. PO 81 mg DAILY NELSON Administration Atenolol 25 mg 09/23/20 09:00 09/23/20 09:15 Atenolol 25 Mg Tablet PO 25 mg DAILY [facility] Administration Protocol Dexamethasone Sodium Phosphate 6 mg 09/23/20 09:00 09/23/20 09:15 Dexamethasone Sod Phosphate 4 Mg/Ml Vial IVPUSH 6 mg DAILY NELSON Administration Doxycycline Hyclate 100 mg 09/23/20 14:00 Doxycycline Hyclate 100 Mg Tablet PO Q12H [facility] Guaifenesin/Codeine Phosphate 5 ml 09/23/20 03:01 Guaifen/Codeine Sf 200/20/10ml 10 Ml Liquid PO Q6H PRN Cough Ceftriaxone Sodium 1 gm/ 50 mls @ 100 mls/hr 09/23/20 23:00 Sodium Chloride IV Q24H [facility] Insulin Human Lispro 0 unit 09/23/20 07:30 09/23/20 07:19 Insulin Lispro 100 Unit/Ml 3 Ml Vial SUBCUT Not Given QIDACHS [facility] Protocol Pharmacy Consult 1 each 09/22/20 20:27 Consult Rx Perform Med Rec MISCELLANE ONCE PRN Consult order Pravastatin Sodium 20 mg 09/23/20 09:00 09/23/20 09:15 Pravastatin Sodium 20 Mg Tablet PO 20 mg DAILY [facility] Administration Sodium Chloride 3 ml 09/23/20 08:00 09/23/20 07:18 0.9 % Sodium Chloride Flush 3 Ml Syringe IVFLUSH 3 ml QSHIFT NELSON Administration Home Medications Medication Instructions Recorded Confirmed Last Taken Type aspirin 81 mg tablet,delayed 81 mg PO DAILY 08/04/20 09/23/20 09/22/20 History release ferrous sulfate 325 mg (65 mg 325 mg PO BID 08/04/20 09/23/2009/22/21 History iron) tablet lisinopril 20 mg tablet 20 mg PO DAILY 08/04/20 09/23/20 09/22/20 History Physical Exam Vital Signs: Vital Signs: Last Vital Signs Temp 98.6 F 09/23/20 01:52 Pulse 60 09/23/20 09:15 Resp 14 09/23/20 08:52 BP 131/61 09/23/20 09:15 Pulse Ox 94 09/23/20 08:52 Body Mass Index 26.6 GENERAL APPEARANCE: short of breath, on supplemental oxygen. HEENT: unremarkable. HEAD: normocephalic, atraumatic. NECK/THYROID: no carotid bruit, no jugular venous distention. SKIN: no suspicious lesions, warm and dry. HEART: no murmurs, regular rate and rhythm, S1, S2 normal. LUNGS: Few crackles at bases. ABDOMEN: normal, bowel sounds present, soft, nontender, nondistended. EXTREMITIES: no clubbing, cyanosis, or edema. PERIPHERAL PULSES: equal. NEUROLOGIC: nonfocal, alert and oriented. PSYCH: mood/affect full range. Results Labs and Meds Result diagrams: 09/23/20 07:05 09/23/20 07:03 Lab results: Laboratory Results - last 24 hr 09/22/20 09/22/20 09/22/20 20:44 20:44 20:44 WBC 6.9 RBC 3.78 L Hgb 11.2 L Hct 35.2 L MCV 93.1 MCH 29.6 MCHC 31.8 RDW 14.6 Plt Count 195 D MPV 12.9 H Immature Gran % (Auto) 0.7 H Neut % (Auto) 85.0 H Lymph % (Auto) 6.5 L Russell % (Auto) 7.8 Eos % (Auto) 0.0 Baso % (Auto) 0.0 Lymph # (Auto) 0.5 L Russell # (Auto) 0.5 Eos # (Auto) 0.0 Baso # (Auto) 0.0 Abs Immat Gran (auto) 0.05 H Absolute Neuts (auto) 5.8 Absolute Nucleated RBC 0.020 H Nucleated RBC % (auto) 0.3 H Smear Tech's Comments VERIFIED PT 15.8 H INR 1.3 H APTT 29.8 D-Dimer 1852 O2 Saturation ABG pH at Pt Temp ABG pH (Temp Correct) ABG pCO2 at Pt Temp ABG pCO2 (Temp Corrct ABG pO2 at Pt Temp ABG pO2 (Temp Correct ABG HCO3 ABG Base Excess (Actual) Sodium 148 H Potassium 4.6 Chloride 110 H Carbon Dioxide 22 Anion Gap 21 H BUN 63 H D Creatinine 2.27 H Estim Creat Clear Calc 47.5 Estimated GFR 29 Random Glucose 194 H D Lactic Acid Lactic Acid Fup @ 2Hr Lactic Acid Fup @ 4Hr Calcium 8.3 L D Magnesium 1.8 Ferritin Total Bilirubin 0.4 Direct Bilirubin 0.2 AST 54 H ALT 20 Alkaline Phosphatase 48 D Lactate Dehydrogenase 749 H Total Creatine Kinase 710 H Troponin I High Sens C-Reactive Protein 12.66 H B-Natriuretic Peptide Total Protein 6.8 Albumin 3.7 Lipase Procalcitonin 09/22/20 09/22/20 09/22/20 20:44 20:44 20:44 WBC RBC Hgb Hct MCV MCH MCHC RDW Plt Count MPV Immature Gran % (Auto) Neut % (Auto) Lymph % (Auto) Russell % (Auto) Eos % (Auto) Baso % (Auto) Lymph # (Auto) Russell # (Auto) Eos # (Auto) Baso # (Auto) Abs Immat Gran (auto) Absolute Neuts (auto) Absolute Nucleated RBC Nucleated RBC % (auto) Smear Tech's Comments PT INR APTT D-Dimer O2 Saturation ABG pH at Pt Temp ABG pH (Temp Correct) ABG pCO2 at Pt Temp ABG pCO2 (Temp Corrct ABG pO2 at Pt Temp ABG pO2 (Temp Correct ABG HCO3 ABG Base Excess (Actual) Sodium Potassium Chloride Carbon Dioxide Anion Gap BUN Creatinine Estim Creat Clear Calc Estimated GFR Random Glucose Lactic Acid 5.0 H* Lactic Acid Fup @ 2Hr Lactic Acid Fup @ 4Hr Calcium Magnesium Ferritin 1656 H Total Bilirubin Direct Bilirubin AST ALT Alkaline Phosphatase Lactate Dehydrogenase Total Creatine Kinase Troponin I High Sens 417.4 H D C-Reactive Protein B-Natriuretic Peptide 171 H Total Protein Albumin Lipase 183 H Procalcitonin 09/22/20 09/22/20 09/23/20 20:44 21:44 00:20 WBC RBC Hgb Hct MCV MCH MCHC RDW Plt Count MPV Immature Gran % (Auto) Neut % (Auto) Lymph % (Auto) Russell % (Auto) Eos % (Auto) Baso % (Auto) Lymph # (Auto) Russell # (Auto) Eos # (Auto) Baso # (Auto) Abs Immat Gran (auto) Absolute Neuts (auto) Absolute Nucleated RBC Nucleated RBC % (auto) Smear Tech's Comments PT INR APTT D-Dimer O2 Saturation 83.0 ABG pH at Pt Temp 7.40 ABG pH (Temp Correct) 7.40 ABG pCO2 at Pt Temp 28 L ABG pCO2 (Temp Corrct 28 L ABG pO2 at Pt Temp 53 L ABG pO2 (Temp Correct 52 L ABG HCO3 17 L ABG Base Excess (Actual) -5.8 Sodium Potassium Chloride Carbon Dioxide Anion Gap BUN Creatinine Estim Creat Clear Calc Estimated GFR Random Glucose Lactic Acid Lactic Acid Fup @ 2Hr Lactic Acid Fup @ 4Hr Calcium Magnesium Ferritin Total Bilirubin Direct Bilirubin AST ALT Alkaline Phosphatase Lactate Dehydrogenase Total Creatine Kinase Troponin I High Sens 405.3 H C-Reactive Protein B-Natriuretic Peptide Total Protein Albumin Lipase Procalcitonin 0.36 09/23/20 09/23/20 09/23/20 00:20 02:59 07:03 WBC RBC Hgb Hct MCV MCH MCHC RDW Plt Count MPV Immature Gran % (Auto) Neut % (Auto) Lymph % (Auto) Russell % (Auto) Eos % (Auto) Baso % (Auto) Lymph # (Auto) Russell # (Auto) Eos # (Auto) Baso # (Auto) Abs Immat Gran (auto) Absolute Neuts (auto) Absolute Nucleated RBC Nucleated RBC % (auto) Smear Tech's Comments PT INR APTT D-Dimer O2 Saturation ABG pH at Pt Temp ABG pH (Temp Correct) ABG pCO2 at Pt Temp ABG pCO2 (Temp Corrct ABG pO2 at Pt Temp ABG pO2 (Temp Correct ABG HCO3 ABG Base Excess (Actual) Sodium 148 H Potassium 4.5 Chloride 116 H Carbon Dioxide 17 L Anion Gap 20 BUN 64 H Creatinine 1.87 H Estim Creat Clear Calc 39.7 Estimated GFR 36 Random Glucose 184 H Lactic Acid Lactic Acid Fup @ 2Hr 3.0 H* Lactic Acid Fup @ 4Hr 2.6 H* Calcium 7.4 L D Magnesium Ferritin Total Bilirubin Direct Bilirubin AST ALT Alkaline Phosphatase Lactate Dehydrogenase Total Creatine Kinase Troponin I High Sens C-Reactive Protein B-Natriuretic Peptide Total Protein Albumin Lipase Procalcitonin 09/23/20 07:05 WBC 7.4 RBC 3.47 L Hgb 10.3 L Hct 32.5 L MCV 93.7 MCH 29.7 MCHC 31.7 RDW 14.5 Plt Count 153 L MPV 13.0 H Immature Gran % (Auto) 0.8 H Neut % (Auto) 84.5 H Lymph % (Auto) 7.9 L Russell % (Auto) 6.7 Eos % (Auto) 0.0 Baso % (Auto) 0.1 Lymph # (Auto) 0.6 L Russell # (Auto) 0.5 Eos # (Auto) 0.0 Baso # (Auto) 0.0 Abs Immat Gran (auto) 0.06 H Absolute Neuts (auto) 6.2 Absolute Nucleated RBC 0.020 H Nucleated RBC % (auto) 0.3 H Smear Tech's Comments VERIFIED PT INR APTT D-Dimer O2 Saturation ABG pH at Pt Temp ABG pH (Temp Correct) ABG pCO2 at Pt Temp ABG pCO2 (Temp Corrct ABG pO2 at Pt Temp ABG pO2 (Temp Correct ABG HCO3 ABG Base Excess (Actual) Sodium Potassium Chloride Carbon Dioxide Anion Gap BUN Creatinine Estim Creat Clear Calc Estimated GFR Random Glucose Lactic Acid Lactic Acid Fup @ 2Hr Lactic Acid Fup @ 4Hr Calcium Magnesium Ferritin Total Bilirubin Direct Bilirubin AST ALT Alkaline Phosphatase Lactate Dehydrogenase Total Creatine Kinase Troponin I High Sens C-Reactive Protein B-Natriuretic Peptide Total Protein Albumin Lipase Procalcitonin Imaging Radiologist's impression: Impressions Chest X-Ray 09/22/20 20:28 IMPRESSION: Low lung volumes with bibasilar atelectasis. Abdomen/Pelvis CT 09/23/20 00:01 IMPRESSION: 1. New extensive infiltrates in both lungs, some confluent with air bronchograms other groundglass. The findings certainly could be secondary to Covid 19. Although the denser lower lobe consolidations with air bronchograms are not entirely typical, these could be due to bacterial pneumonia or possibly even aspiration. 2. Gaseous colonic distention without an obvious obstructing lesion. This could represent an ileus. 3. Bilateral renal cysts which appear complex, but stable. Chest CT 09/23/20 00:01 IMPRESSION: 1. New extensive infiltrates in both lungs, some confluent with air bronchograms other groundglass. The findings certainly could be secondary to Covid 19. Although the denser lower lobe consolidations with air bronchograms are not entirely typical, these could be due to bacterial pneumonia or possibly even aspiration. 2. Gaseous colonic distention without an obvious obstructing lesion. This could represent an ileus. 3. Bilateral renal cysts which appear complex, but stable. Assessment and Plan (1) COVID-19: Status: Acute (2) Elevated troponin: Status: Acute Pleasant 70-year-old gentleman recently tested positive for COVID-19 infection who is presenting shortness of breath and pneumonia. He was hypoxic and he has mildly abnormal troponin levels. I think the troponin level is due to hypoxia and infection. He has elevated D-dimer which is commonly seen in the COVID-19 infection. Given his background of DVT/PE, he was started on heparin gtt empirically due to elevated D-Dimer. He could not tolerate laying down for V/Q scan. I think it is reasonable to continue the heparin till he gets further testing. Check echo. Monitor hemoglobin closely. Continue steroids and antibiotics. Thank you for allowing me to participate in the care of your patient. Please feel free to contact me if you have any questions.
--- NOTE | 2020-09-23 11:00 | PC.NURSE ---
sb on monitor, denies sob, still on nrb and high flow w spo2 [id number], denies pain, alert
[2020-09-23 12:16] LABS: Glucose, Whole Blood 150 mg/dL (60-115)
--- NOTE | 2020-09-23 14:46 | P.CONGS_ITS ---
[facility], [facility] Past Medical History Medical History (Updated 09/23/20 @ 01:31 by CARRIE Arzate) Anemia Benign essential hypertension Diabetes mellitus DVT (deep venous thrombosis) HTN (hypertension) Overweight (BMI 25.0-29.9) Pulmonary embolism Pulmonary granuloma Pure hypercholesterolemia Social History Social History Household Members: Family Housing: House Do you presently have visiting nurse or other home services: No Alcohol intake: never Smoking Status: Never smoker Second Hand Smoke Exposure: No Use of substances other than those prescribed or required for medical reasons: Yes Currently Displaying Signs/Symptoms of Drug Intoxication Withdrawal: No Any prior treatment program specific to substance use: No Have you been hit, kicked, punched, or otherwise hurt by someone within the past year? If so, by whom?: No Do you feel safe in your current relationship?: No Is there a partner from a previous relationship who is making you feel unsafe now?: No Advance Directives: No Advance Directives Information Provided: No Do you have thoughts of harming others: None Do you have a plan to hurt others: No Plan Recently lost weight without trying: Yes service: No Current occupational status: retired [employer] Allergies Allergy/AdvReac Type Severity Reaction Status Date / Time No Known Allergies Allergy Verified 08/04/20 20:40 [No Known Allergies*] Active Medications: Current Medications Generic Name Dose Route Start Last Admin Trade Name Freq PRN Reason Stop Dose Admin Acetaminophen 650 mg 09/23/20 01:11 Acetaminophen 325 Mg Tablet PO Q6H PRN Pain, Mild (Pain Scale 1-3) Albuterol Sulfate 4 puff 09/23/20 01:16 Albuterol Sulfate 90 Mcg 8 Gm Inhaler INHALE Q2H PRN Shortness of Breath/Wheezing Aspirin 81 mg 09/23/20 09:00 09/23/20 09:15 Aspirin Enteric Coated 81 Mg Tablet. PO 81 mg DAILY NELSON Administration Atenolol 25 mg 09/23/20 09:00 09/23/20 09:15 Atenolol 25 Mg Tablet PO 25 mg DAILY NELSNO Administration Protocol Dexamethasone Sodium Phosphate 6 mg 09/23/20 09:00 09/23/20 09:15 Dexamethasone Sod Phosphate 4 Mg/Ml Vial IVPUSH 6 mg DAILY NELSON Administration Doxycycline Hyclate 100 mg 09/23/20 14:00 09/23/20 13:15 Doxycycline Hyclate 100 Mg Tablet PO 100 mg Q12H NELSON Administration Guaifenesin/Codeine Phosphate 5 ml 09/23/20 03:01 Guaifen/Codeine Sf 200/20/10ml 10 Ml Liquid PO Q6H PRN Cough Ceftriaxone Sodium 1 gm/ 50 mls @ 100 mls/hr 09/23/20 23:00 Sodium Chloride IV Q24H [facility] Insulin Human Lispro 0 unit 09/23/20 07:30 09/23/20 12:24 Insulin Lispro 100 Unit/Ml 3 Ml Vial SUBCUT Not Given QIDACHS [facility] Protocol Pharmacy Consult 1 each 09/22/20 20:27 Consult Rx Perform Med Rec MISCELLANE ONCE PRN Consult order Pravastatin Sodium 20 mg 09/23/20 09:00 09/23/20 09:15 Pravastatin Sodium 20 Mg Tablet PO 20 mg DAILY NELSON Administration Sodium Chloride 3 ml 09/23/20 08:00 09/23/20 07:18 0.9 % Sodium Chloride Flush 3 Ml Syringe IVFLUSH 3 ml QSHIFT [facility] Administration Home Medications Medication Instructions Recorded Confirmed Last Taken Type aspirin 81 mg tablet,delayed 81 mg PO DAILY 08/04/20 09/23/20 09/22/20 History release ferrous sulfate 325 mg (65 mg 325 mg PO BID 08/04/20 09/23/20 09/22/20 History iron) tablet lisinopril 20 mg tablet 20 mg PO DAILY 08/04/20 09/23/20 09/22/20 History Physical Exam Vital Signs: Vital Signs: Last Vital Signs Temp 97.8 F 09/23/20 12:00 Pulse 55 09/23/20 12:00 Resp 21 H 09/23/20 12:00 BP 133/62 09/23/20 12:00 Pulse Ox 82 L 09/23/20 12:00 Body Mass Index 26.6 Results Labs Result diagrams: 09/23/20 07:05 09/23/20 07:03 Labs: Abnormal lab results 09/22/20 09/22/20 09/22/20 Range/Units 20:44 20:44 20:44 RBC 3.78 L (4.60-5.80) X10*6/uL Hgb 11.2 L (14.0-18.0) g/dl Hct 35.2 L (42-52) % Plt Count (160-400) X10*3/uL MPV 12.9 H (9.4-12.4) fL Immature Gran % (Auto) 0.7 H (0.0-0.4) % Neut % (Auto) 85.0 H (45-73) % Lymph % (Auto) 6.5 L (20-40) % Lymph # (Auto) 0.5 L (1.2-4.9) X10*3/uL Abs Immat Gran (auto) 0.05 H (0.00-0.03) X10*3/uL Absolute Nucleated RBC 0.020 H (0.0-0.012) X10*3/uL Nucleated RBC % (auto) 0.3 H (0.0-0.2) /100WBC PT 15.8 H (10.8-13.0) SEC INR 1.3 H (0.9-1.1) ABG pCO2 at Pt Temp (32-45) mmHg ABG pCO2 (Temp Corrct (32-45) mmHg ABG pO2 at Pt Temp (83-108) mmHg ABG pO2 (Temp Correct (83-108) ABG HCO3 (22-26) mmol/L Sodium 148 H (135-145) mmol/L Chloride 110 H (96-108) mmol/L Carbon Dioxide (22-29) mmol/L Anion Gap 21 H (12-20) BUN 63 H D (9-16) mg/dL Creatinine 2.27 H (0.5-1.4) mg/dL POC Glucose (60-115) mg/dL Random Glucose 194 H D (60-115) mg/dL Lactic Acid (0.5-2.0) mmol/L Lactic Acid Fup @ 2Hr (0.5-2.0) mmol/L Lactic Acid Fup @ 4Hr (0.5-2.0) mmol/L Calcium 8.3 L D (8.4-10.2) mg/dL Ferritin (20-250) ng/mL AST 54 H (5-37) U/L Lactate Dehydrogenase 749 H (118-273) U/L Total Creatine Kinase 710 H (38-174) U/L Troponin I High Sens (<3.5-35.0) ng/L C-Reactive Protein 12.66 H (< or = 0.50) mg/dL B-Natriuretic Peptide (<100) pg/mL Lipase (8-78) U/L 09/22/20 09/22/20 09/22/20 Range/Units 20:44 20:44 20:44 RBC (4.60-5.80) X10*6/uL Hgb (14.0-18.0) g/dl Hct (42-52) % Plt Count (160-400) X10*3/uL MPV (9.4-12.4) fL Immature Gran % (Auto) (0.0-0.4) % Neut % (Auto) (45-73) % Lymph % (Auto) (20-40) % Lymph # (Auto) (1.2-4.9) X10*3/uL Abs Immat Gran (auto) (0.00-0.03) X10*3/uL Absolute Nucleated RBC (0.0-0.012) X10*3/uL Nucleated RBC % (auto) (0.0-0.2) /100WBC PT (10.8-13.0) SEC INR (0.9-1.1) ABG pCO2 at Pt Temp (32-45) mmHg ABG pCO2 (Temp Corrct (32-45) mmHg ABG pO2 at Pt Temp (83-108) mmHg ABG pO2 (Temp Correct (83-108) ABG HCO3 (22-26) mmol/L Sodium (135-145) mmol/L Chloride (96-108) mmol/L Carbon Dioxide (22-29) mmol/L Anion Gap (12-20) BUN (9-16) mg/dL Creatinine (0.5-1.4) mg/dL POC Glucose (60-115) mg/dL Random Glucose (60-115) mg/dL Lactic Acid 5.0 H* (0.5-2.0) mmol/L Lactic Acid Fup @ 2Hr (0.5-2.0) mmol/L Lactic Acid Fup @ 4Hr (0.5-2.0) mmol/L Calcium (8.4-10.2) mg/dL Ferritin 1656 H (20-250) ng/mL AST (5-37) U/L Lactate Dehydrogenase (118-273) U/L Total Creatine Kinase (38-174) U/L Troponin I High Sens 417.4 H D (<3.5-35.0) ng/L C-Reactive Protein (< or = 0.50) mg/dL B-Natriuretic Peptide 171 H (<100) pg/mL Lipase 183 H (8-78) U/L 09/22/20 09/23/20 09/23/20 Range/Units 21:44 00:20 00:20 RBC (4.60-5.80) X10*6/uL Hgb (14.0-18.0) g/dl Hct (42-52) % Plt Count (160-400) X10*3/uL MPV (9.4-12.4) fL Immature Gran % (Auto) (0.0-0.4) % Neut % (Auto) (45-73) % Lymph % (Auto) (20-40) % Lymph # (Auto) (1.2-4.9) X10*3/uL Abs Immat Gran (auto) (0.00-0.03) X10*3/uL Absolute Nucleated RBC (0.0-0.012) X10*3/uL Nucleated RBC % (auto) (0.0-0.2) /100WBC PT (10.8-13.0) SEC INR (0.9-1.1) ABG pCO2 at Pt Temp 28 L (32-45) mmHg ABG pCO2 (Temp Corrct 28 L (32-45) mmHg ABG pO2 at Pt Temp 53 L (83-108) mmHg ABG pO2 (Temp Correct 52 L (83-108) ABG HCO3 17 L (22-26) mmol/L Sodium (135-145) mmol/L Chloride (96-108) mmol/L Carbon Dioxide (22-29) mmol/L Anion Gap (12-20) BUN (9-16) mg/dL Creatinine (0.5-1.4) mg/dL POC Glucose (60-115) mg/dL Random Glucose (60-115) mg/dL Lactic Acid (0.5-2.0) mmol/L Lactic Acid Fup @ 2Hr 3.0 H* (0.5-2.0) mmol/L Lactic Acid Fup @ 4Hr (0.5-2.0) mmol/L Calcium (8.4-10.2) mg/dL Ferritin (20-250) ng/mL AST (5-37) U/L Lactate Dehydrogenase (118-273) U/L Total Creatine Kinase (38-174) U/L Troponin I High Sens 405.3 H (<3.5-35.0) ng/L C-Reactive Protein (< or = 0.50) mg/dL B-Natriuretic Peptide (<100) pg/mL Lipase (8-78) U/L 09/23/20 09/23/20 09/23/20 Range/Units 02:59 07:03 07:05 RBC 3.47 L (4.60-5.80) X10*6/uL Hgb 10.3 L (14.0-18.0) g/dl Hct 32.5 L (42-52) % Plt Count 153 L (160-400) X10*3/uL MPV 13.0 H (9.4-12.4) fL Immature Gran % (Auto) 0.8 H (0.0-0.4) % Neut % (Auto) 84.5 H (45-73) % Lymph % (Auto) 7.9 L (20-40) % Lymph # (Auto) 0.6 L (1.2-4.9) X10*3/uL Abs Immat Gran (auto) 0.06 H (0.00-0.03) X10*3/uL Absolute Nucleated RBC 0.020 H (0.0-0.012) X10*3/uL Nucleated RBC % (auto) 0.3 H (0.0-0.2) /100WBC PT (10.8-13.0) SEC INR (0.9-1.1) ABG pCO2 at Pt Temp (32-45) mmHg ABG pCO2 (Temp Corrct (32-45) mmHg ABG pO2 at Pt Temp (83-108) mmHg ABG pO2 (Temp Correct (83-108) ABG HCO3 (22-26) mmol/L Sodium 148 H (135-145) mmol/L Chloride 116 H (96-108) mmol/L Carbon Dioxide 17 L (22-29) mmol/L Anion Gap (12-20) BUN 64 H (9-16) mg/dL Creatinine 1.87 H (0.5-1.4) mg/dL POC Glucose (60-115) mg/dL Random Glucose 184 H (60-115) mg/dL Lactic Acid (0.5-2.0) mmol/L Lactic Acid Fup @ 2Hr (0.5-2.0) mmol/L Lactic Acid Fup @ 4Hr 2.6 H* (0.5-2.0) mmol/L Calcium 7.4 L D (8.4-10.2) mg/dL Ferritin (20-250) ng/mL AST (5-37) U/L Lactate Dehydrogenase (118-273) U/L Total Creatine Kinase (38-174) U/L Troponin I High Sens (<3.5-35.0) ng/L C-Reactive Protein (< or = 0.50) mg/dL B-Natriuretic Peptide (<100) pg/mL Lipase (8-78) U/L 09/23/20 Range/Units 12:10 RBC (4.60-5.80) X10*6/uL Hgb (14.0-18.0) g/dl Hct (42-52) % Plt Count (160-400) X10*3/uL MPV (9.4-12.4) fL Immature Gran % (Auto) (0.0-0.4) % Neut % (Auto) (45-73) % Lymph % (Auto) (20-40) % Lymph # (Auto) (1.2-4.9) X10*3/uL Abs Immat Gran (auto) (0.00-0.03) X10*3/uL Absolute Nucleated RBC (0.0-0.012) X10*3/uL Nucleated RBC % (auto) (0.0-0.2) /100WBC PT (10.8-13.0) SEC INR (0.9-1.1) ABG pCO2 at Pt Temp (32-45) mmHg ABG pCO2 (Temp Corrct (32-45) mmHg ABG pO2 at Pt Temp (83-108) mmHg ABG pO2 (Temp Correct (83-108) ABG HCO3 (22-26) mmol/L Sodium (135-145) mmol/L Chloride (96-108) mmol/L Carbon Dioxide (22-29) mmol/L Anion Gap (12-20) BUN (9-16) mg/dL Creatinine (0.5-1.4) mg/dL POC Glucose 150 H (60-115) mg/dL Random Glucose (60-115) mg/dL Lactic Acid (0.5-2.0) mmol/L Lactic Acid Fup @ 2Hr (0.5-2.0) mmol/L Lactic Acid Fup @ 4Hr (0.5-2.0) mmol/L Calcium (8.4-10.2) mg/dL Ferritin (20-250) ng/mL AST (5-37) U/L Lactate Dehydrogenase (118-273) U/L Total Creatine Kinase (38-174) U/L Troponin I High Sens (<3.5-35.0) ng/L C-Reactive Protein (< or = 0.50) mg/dL B-Natriuretic Peptide (<100) pg/mL Lipase (8-78) U/L Short CBC 09/22/20 09/23/20 Range/Units 20:44 07:05 WBC 6.9 7.4 (4.8-10.8) X10*3/uL Hgb 11.2 L 10.3 L (14.0-18.0) g/dl Hct 35.2 L 32.5 L (42-52) % Plt Count 195 D 153 L (160-400) X10*3/uL BMP 09/22/20 09/23/20 20:44 07:03 Sodium 148 H 148 H Potassium 4.6 4.5 Chloride 110 H 116 H Carbon Dioxide 22 17 L BUN 63 H D 64 H Creatinine 2.27 H 1.87 H Calcium 8.3 L D 7.4 L D Cardiac Enzymes 09/22/20 Range/Units 20:44 Total Creatine Kinase 710 H (38-174) U/L Liver Function 09/22/20 Range/Units 20:44 Total Bilirubin 0.4 (0.0-1.0) mg/dL Direct Bilirubin 0.2 (0.0-0.5) mg/dL AST 54 H (5-37) U/L ALT 20 (0-40) U/L Alkaline Phosphatase 48 D (39-117) U/L Albumin 3.7 (3.5-5.0) g/dL All other labs normal.
--- NOTE | 2020-09-23 14:49 | P.PNIM_ITS ---
Subjective Subjective Date of Service: 09/23/20 Interval History: Seen in f/u for acute hypoxic respiraory failure with severe hypoxia with covid 19 infection, MARVIN and elevated DDimer level. He is very short of breathy in mild to moderate distress, Review of Systems Gen: no fever Resp: sob, CV: no chest, no KURTZ, no leg edema GI: No n/v, no abd pain Neuro: No confusion Physical Exam Vital Signs: Vital Signs: Last Vital Signs Temp 97.8 F 09/23/20 12:00 Pulse 55 09/23/20 12:00 Resp 21 H 09/23/20 12:00 BP 133/62 09/23/20 12:00 Pulse Ox 82 L 09/23/20 12:00 Body Mass Index 26.6 General: Very ill, looks short of breath, no has difficulty talking Resp: No auscultation due to covid, tachypnea, early accesory muslce use CVS: S1,S2,RRR GI: +BS, NT, no distention Skin: No rash Neuro: motor grossly intact Psych: appropriate affect Objective Data Current Medications Generic Name Dose Route Start Last Admin Trade Name Freq PRN Reason Stop Dose Admin Acetaminophen 650 mg 09/23/20 01:11 Acetaminophen 325 Mg Tablet PO Q6H PRN Pain, Mild (Pain Scale 1-3) Albuterol Sulfate 4 puff 09/23/20 01:16 Albuterol Sulfate 90 Mcg 8 Gm Inhaler INHALE Q2H PRN Shortness of Breath/Wheezing Aspirin 81 mg 09/23/20 09:00 09/23/20 09:15 Aspirin Enteric Coated 81 Mg Tablet. PO 81 mg DAILY NELSON Administration Atenolol 25 mg 09/23/20 09:00 09/23/20 09:15 Atenolol 25 Mg Tablet PO 25 mg DAILY NELSON Administration Protocol Dexamethasone Sodium Phosphate 6 mg 09/23/20 09:00 09/23/20 09:15 Dexamethasone Sod Phosphate 4 Mg/Ml Vial IVPUSH 6 mg DAILY NELSON Administration Doxycycline Hyclate 100 mg 09/23/20 14:00 09/23/20 13:15 Doxycycline Hyclate 100 Mg Tablet PO 100 mg Q12H NELSON Administration Guaifenesin/Codeine Phosphate 5 ml 09/23/20 03:01 Guaifen/Codeine Sf 200/20/10ml 10 Ml Liquid PO Q6H PRN Cough Ceftriaxone Sodium 1 gm/ 50 mls @ 100 mls/hr 09/23/20 23:00 Sodium Chloride IV Q24H [facility] Insulin Human Lispro 0 unit 09/23/20 07:30 09/23/20 12:24 Insulin Lispro 100 Unit/Ml 3 Ml Vial SUBCUT Not Given QIDACHS [facility] Protocol Pharmacy Consult 1 each 09/22/20 20:27 Consult Rx Perform Med Rec MISCELLANE ONCE PRN Consult order Pravastatin Sodium 20 mg 09/23/20 09:00 09/23/20 09:15 Pravastatin Sodium 20 Mg Tablet PO 20 mg DAILY NELSON Administration Sodium Chloride 3 ml 09/23/20 08:00 09/23/20 07:18 0.9 % Sodium Chloride Flush 3 Ml Syringe IVFLUSH 3 ml QSHIFT NELSON Administration Labs CBC & Chem 7: 09/23/20 07:05 09/23/20 07:03 Assessment and Plan (1) Pneumonia due to COVID-19 virus: Status: Acute Assessment and Plan: 70-year-old male with a past medical history of hypertension, hyperlipidemia, diabetes, 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 Acute hypoxic respiratory failure due to covid 19, he is requiring large amount of oxygen by NRB and high flow -Dexamethasone -Remdesevir will be added -ABG -Critical care consult if worsening -ID consult -Empiric Abx Elevated DDimer with MARVIN, unable to do CTA, received a dose of Lovenox at 5 this AM He is unable to lay flat for VQ scan, DDimer is > 1800, he has history of DVT and PE and not anticoagulated Will continue anticoagulation with heparin until VQ or CTA can be done. Due to high risk of PE, and covid being pro-coagulant, will start empiric Heparin Lactic acidosis--d/t likely hypoxia, viral sepsis, renal failure MARVIN: pre renal azotemia and is better, continue monitoring Hypernatremia: due to dehydration, IVF and reassess Elevated troponins: likely related to hypoxia and renal failure, cardiology assessing, Ileus: Seen by surgery no acute surgical issues Diabetes: Insulin sliding scale Code status: Full code.
--- NOTE | 2020-09-23 15:11 | PC.NURSE ---
1415 Refusing lung scan. Feels like he could not lie flat for 20min. Dr Burk aware. ON non rebreather and Hi Flow 02. Sat 88-90% with HOB elevated. No c/o pain.
--- NOTE | 2020-09-23 15:32 | P.CONGS_ITS ---
History of Present Illness Consult details Consult date: 09/23/20 Narrative: This is a 70-year-old male recently admitted with a diagnosis of COVID 19 who returned to the emergency department yesterday with complaints of worsening cough and shortness of breath. He also reported inability to eat over the past several days. He states that he felt as though the food was sticking in his throat. He does not complain of nausea, vomiting, abdominal pain, diarrhea or constipation. He has been passing flatus and moving his bowels. He does not report abdominal distension. In the emergency room, a CT scan of the chest abdomen and pelvis was obtained. Gaseous distention of the colon was present raising concern for ileus. There was no evidence of obstruction. The lungs demonstrated air bronchograms and consolidation with ground-glass appearance bilaterally. Currently, he reports that he is very thirsty. He feels more comfortable now that he is receiving supplemental oxygen. He reports that his cough seems improved. Review of Systems Constitutional: Constitutional: Denies chills and Denies fever(s) Eyes: Eyes: Reports requires corrective lenses ENT: Reports Normal hearing present Cardiovascular: Cardiovascular: Denies chest pain and Reports leg edema Respiratory: Respiratory: Reports as per HPI Gastrointestinal: Gastrointestinal: Reports as per HPI Genitourinary: Genitourinary: Reports no additional male genitourinary complaints Musculoskeletal: Musculoskeletal: Denies arthralgias and Denies joint swelling Integumentary/Breasts: Skin/Breast: Denies rash Neurologic: Reports Normal hearing present Hematologic/Lymphatic: Hematologic/Lymphatic: Reports other (History of lower extremity DVT and PE) [facility] Past Medical History Medical History Anemia Benign essential hypertension Diabetes mellitus DVT (deep venous thrombosis) HTN (hypertension) Overweight (BMI 25.0-29.9) Pulmonary embolism Pulmonary granuloma Pure hypercholesterolemia Surgical History Surgical History (Updated 09/23/20 @ 16:06 by Annika Villarreal MD) H/O bilateral cataract extraction History of cholecystectomy Status post bilateral total hip replacement Social History Social History Household Members: Family Housing: House Do you presently have visiting nurse or other home services: No Alcohol intake: never Smoking Status: Never smoker Second Hand Smoke Exposure: No Use of substances other than those prescribed or required for medical reasons: Yes Currently Displaying Signs/Symptoms of Drug Intoxication Withdrawal: No Any prior treatment program specific to substance use: No Have you been hit, kicked, punched, or otherwise hurt by someone within the past year? If so, by whom?: No Do you feel safe in your current relationship?: No Is there a partner from a previous relationship who is making you feel unsafe n ow?: No Advance Directives: No Advance Directives Information Provided: No Do you have thoughts of harming others: None Do you have a plan to hurt others: No Plan Recently lost weight without trying: Yes service: No Current occupational status: retired [employer] Allergies Allergy/AdvReac Type Severity Reaction Status Date / Time No Known Allergies Allergy Verified 08/04/20 20:40 [No Known Allergies*] Active Medications: Current Medications Generic Name Dose Route Start Last Admin Trade Name Freq PRN Reason Stop Dose Admin Acetaminophen 650 mg 09/23/20 01:11 Acetaminophen 325 Mg Tablet PO Q6H PRN Pain, Mild (Pain Scale 1-3) Albuterol Sulfate 4 puff 09/23/20 01:16 Albuterol Sulfate 90 Mcg 8 Gm Inhaler INHALE Q2H PRN Shortness of Breath/Wheezing Aspirin 81 mg 09/23/20 09:00 09/23/20 09:15 Aspirin Enteric Coated 81 Mg Tablet. PO 81 mg DAILY NELSON Administration Atenolol 25 mg 09/23/20 09:00 09/23/20 09:15 Atenolol 25 Mg Tablet PO 25 mg DAILY NELSON Administration Protocol Dexamethasone Sodium Phosphate 6 mg 09/23/20 09:00 09/23/20 09:15 Dexamethasone Sod Phosphate 4 Mg/Ml Vial IVPUSH 6 mg DAILY NELSON Administration Doxycycline Hyclate 100 mg 09/23/20 14:00 09/23/20 13:15 Doxycycline Hyclate 100 Mg Tablet PO 100 mg Q12H NELSON Administration Guaifenesin/Codeine Phosphate 5 ml 09/23/20 03:01 Guaifen/Codeine Sf 200/20/10ml 10 Ml Liquid PO Q6H PRN Cough Heparin Sodium (Porcine) 7,100 unit 09/23/20 17:00 Heparin Sodium,Porcine 5,000 Unit/Ml Vial 80 unit/kg (7100 unit) IVPUSH BOLUS PRN 80 unit/kg - Heparin Protocol Heparin Sodium (Porcine) 3,600 unit 09/23/20 17:00 Heparin Sodium,Porcine 5,000 Unit/Ml Vial 40 unit/kg (3600 unit) IVPUSH BOLUS PRN 40 unit/kg - Heparin Protocol Ceftriaxone Sodium 1 gm/ 50 mls @ 100 mls/hr 09/23/20 23:00 Sodium Chloride IV Q24H [facility] Heparin Sodium/Sodium Chloride 25,000 unit in 250 mls @ 0 mls/hr 09/23/20 17:00 IVCONT .Q0M [facility] Protocol Per Protocol Remdesivir 200 mg/ Sodium 210 mls @ 105 mls/hr 09/23/20 16:00 Chloride IV 09/23/20 17:59 ONCE ONE Remdesivir 100 mg/ Sodium 230 mls @ 115 mls/hr 09/24/20 16:00 Chloride IV 09/27/20 17:59 Q24H [facility] Insulin Human Lispro 0 unit 09/23/20 07:30 09/23/20 12:24 Insulin Lispro 100 Unit/Ml 3 Ml Vial SUBCUT Not Given QIDACHS [facility] Protocol Pharmacy Consult 1 each 09/22/20 20:27 Consult Rx Perform Med Rec MISCELLANE ONCE PRN Consult order Pravastatin Sodium 20 mg 09/23/20 09:00 09/23/20 09:15 Pravastatin Sodium 20 Mg Tablet PO 20 mg DAILY [facility] Administration Sodium Chloride 3 ml 09/23/20 08:00 09/23/20 07:18 0.9 % Sodium Chloride Flush 3 Ml Syringe IVFLUSH 3 ml QSHIFT [facility] Administration Home Medications Medication Instructions Recorded Confirmed Last Taken Type aspirin 81 mg tablet,delayed 81 mg PO DAILY 08/04/20 09/23/20 09/22/20 History release ferrous sulfate 325 mg (65 mg 325 mg PO BID 08/04/20 09/23/20 09/22/20 History iron) tablet lisinopril 20 mg tablet 20 mg PO DAILY 08/04/20 09/23/20 09/22/20 History Physical Exam Vital Signs: Vital Signs: Last Vital Signs Temp 98.2 F 09/23/20 15:16 Pulse 53 09/23/20 15:16 Resp 22 H 09/23/20 15:16 BP 118/54 L 09/23/20 15:16 Pulse Ox 88 L 09/23/20 15:16 Body Mass Index 26.6 Const: General: cooperative and alert Orientation/consciousness: patient oriented x3 HENMT: Head: Yes normocephalic and Yes atraumatic Mouth: mucous membranes dry (Dry) Neck: Neck: Yes normal visual inspection Resp: Effort & Inspection: tachypneic (Mildly) Auscultation: diminished lung sounds Cardio: Rate: regular rate Rhythm: regular rhythm GI: Other: Soft, nontender, normal bowel sounds, nondistended, no hepatosplenomegaly Skin: Other: Warm and dry, scaly thickened skin lower legs Neuro: General: patient oriented x3 Cranial nerves: Yes Normal hearing present Psych: Affect: normal affect Insight: Good insight present (Psych) Results Labs Result diagrams: 09/23/20 07:05 09/23/20 07:03 Labs: Abnormal lab results 09/22/20 09/22/20 09/22/20 Range/Units 20:44 20:44 20:44 RBC 3.78 L (4.60-5.80) X10*6/uL Hgb 11.2 L (14.0-18.0) g/dl Hct 35.2 L (42-52) % Plt Count (160-400) X10*3/uL MPV 12.9 H (9.4-12.4) fL Immature Gran % (Auto) 0.7 H (0.0-0.4) % Neut % (Auto) 85.0 H (45-73) % Lymph % (Auto) 6.5 L (20-40) % Lymph # (Auto) 0.5 L (1.2-4.9) X10*3/uL Abs Immat Gran (auto) 0.05 H (0.00-0.03) X10*3/uL Absolute Nucleated RBC 0.020 H (0.0-0.012) X10*3/uL Nucleated RBC % (auto) 0.3 H (0.0-0.2) /100WBC PT 15.8 H (10.8-13.0) SEC INR 1.3 H (0.9-1.1) ABG pCO2 at Pt Temp (32-45) mmHg ABG pCO2 (Temp Corrct (32-45) mmHg ABG pO2 at Pt Temp (83-108) mmHg ABG pO2 (Temp Correct (83-108) ABG HCO3 (22-26) mmol/L Sodium 148 H (135-145) mmol/L Chloride 110 H (96-108) mmol/L Carbon Dioxide (22-29) mmol/L Anion Gap 21 H (12-20) BUN 63 H D (9-16) mg/dL Creatinine 2.27 H (0.5-1.4) mg/dL POC Glucose (60-115) mg/dL Random Glucose 194 H D (60-115) mg/dL Lactic Acid (0.5-2.0) mmol/L Lactic Acid Fup @ 2Hr (0.5-2.0) mmol/L Lactic Acid Fup @ 4Hr (0.5-2.0) mmol/L Calcium 8.3 L D (8.4-10.2) mg/dL Ferritin (20-250) ng/mL AST 54 H (5-37) U/L Lactate Dehydrogenase 749 H (118-273) U/L Total Creatine Kinase 710 H (38-174) U/L Troponin I High Sens (<3.5-35.0) ng/L C-Reactive Protein 12.66 H (< or = 0.50) mg/dL B-Natriuretic Peptide (<100) pg/mL Lipase (8-78) U/L 09/22/20 09/22/20 09/22/20 Range/Units 20:44 20:44 20:44 RBC (4.60-5.80) X10*6/uL Hgb (14.0-18.0) g/dl Hct (42-52) % Plt Count (160-400) X10*3/uL MPV (9.4-12.4) fL Immature Gran % (Auto) (0.0-0.4) % Neut % (Auto) (45-73) % Lymph % (Auto) (20-40) % Lymph # (Auto) (1.2-4.9) X10*3/uL Abs Immat Gran (auto) (0.00-0.03) X10*3/uL Absolute Nucleated RBC (0.0-0.012) X10*3/uL Nucleated RBC % (auto) (0.0-0.2) /100WBC PT (10.8-13.0) SEC INR (0.9-1.1) ABG pCO2 at Pt Temp (32-45) mmHg ABG pCO2 (Temp Corrct (32-45) mmHg ABG pO2 at Pt Temp (83-108) mmHg ABG pO2 (Temp Correct (83-108) ABG HCO3 (22-26) mmol/L Sodium (135-145) mmol/L Chloride (96-108) mmol/L Carbon Dioxide (22-29) mmol/L Anion Gap (12-20) BUN (9-16) mg/dL Creatinine (0.5-1.4) mg/dL POC Glucose (60-115) mg/dL Random Glucose (60-115) mg/dL Lactic Acid 5.0 H* (0.5-2.0) mmol/L Lactic Acid Fup @ 2Hr (0.5-2.0) mmol/L Lactic Acid Fup @ 4Hr (0.5-2.0) mmol/L Calcium (8.4-10.2) mg/dL Ferritin 1656 H (20-250) ng/mL AST (5-37) U/L Lactate Dehydrogenase (118-273) U/L Total Creatine Kinase (38-174) U/L Troponin I High Sens 417.4 H D (<3.5-35.0) ng/L C-Reactive Protein (< or = 0.50) mg/dL B-Natriuretic Peptide 171 H (<100) pg/mL Lipase 183 H (8-78) U/L 09/22/20 09/23/20 09/23/20 Range/Units 21:44 00:20 00:20 RBC (4.60-5.80) X10*6/uL Hgb (14.0-18.0) g/dl Hct (42-52) % Plt Count (160-400) X10*3/uL MPV (9.4-12.4) fL Immature Gran % (Auto) (0.0-0.4) % Neut % (Auto) (45-73) % Lymph % (Auto) (20-40) % Lymph # (Auto) (1.2-4.9) X10*3/uL Abs Immat Gran (auto) (0.00-0.03) X10*3/uL Absolute Nucleated RBC (0.0-0.012) X10*3/uL Nucleated RBC % (auto) (0.0-0.2) /100WBC PT (10.8-13.0) SEC INR (0.9-1.1) ABG pCO2 at Pt Temp 28 L (32-45) mmHg ABG pCO2 (Temp Corrct 28 L (32-45) mmHg ABG pO2 at Pt Temp 53 L (83-108) mmHg ABG pO2 (Temp Correct 52 L (83-108) ABG HCO3 17 L (22-26) mmol/L Sodium (135-145) mmol/L Chloride (96-108) mmol/L Carbon Dioxide (22-29) mmol/L Anion Gap (12-20) BUN (9-16) mg/dL Creatinine (0.5-1.4) mg/dL POC Glucose (60-115) mg/dL Random Glucose (60-115) mg/dL Lactic Acid (0.5-2.0) mmol/L Lactic Acid Fup @ 2Hr 3.0 H* (0.5-2.0) mmol/L Lactic Acid Fup @ 4Hr (0.5-2.0) mmol/L Calcium (8.4-10.2) mg/dL Ferritin (20-250) ng/mL AST (5-37) U/L Lactate Dehydrogenase (118-273) U/L Total Creatine Kinase (38-174) U/L Troponin I High Sens 405.3 H (<3.5-35.0) ng/L C-Reactive Protein (< or = 0.50) mg/dL B-Natriuretic Peptide (<100) pg/mL Lipase (8-78) U/L 09/23/20 09/23/20 09/23/20 Range/Units 02:59 07:03 07:05 RBC 3.47 L (4.60-5.80) X10*6/uL Hgb 10.3 L (14.0-18.0) g/dl Hct 32.5 L (42-52) % Plt Count 153 L (160-400) X10*3/uL MPV 13.0 H (9.4-12.4) fL Immature Gran % (Auto) 0.8 H (0.0-0.4) % Neut % (Auto) 84.5 H (45-73) % Lymph % (Auto) 7.9 L (20-40) % Lymph # (Auto) 0.6 L (1.2-4.9) X10*3/uL Abs Immat Gran (auto) 0.06 H (0.00-0.03) X10*3/uL Absolute Nucleated RBC 0.020 H (0.0-0.012) X10*3/uL Nucleated RBC % (auto) 0.3 H (0.0-0.2) /100WBC PT (10.8-13.0) SEC INR (0.9-1.1) ABG pCO2 at Pt Temp (32-45) mmHg ABG pCO2 (Temp Corrct (32-45) mmHg ABG pO2 at Pt Temp (83-108) mmHg ABG pO2 (Temp Correct (83-108) ABG HCO3 (22-26) mmol/L Sodium 148 H (135-145) mmol/L Chloride 116 H (96-108) mmol/L Carbon Dioxide 17 L (22-29) mmol/L Anion Gap (12-20) BUN 64 H (9-16) mg/dL Creatinine 1.87 H (0.5-1.4) mg/dL POC Glucose (60-115) mg/dL Random Glucose 184 H (60-115) mg/dL Lactic Acid (0.5-2.0) mmol/L Lactic Acid Fup @ 2Hr (0.5-2.0) mmol/L Lactic Acid Fup @ 4Hr 2.6 H* (0.5-2.0) mmol/L Calcium 7.4 L D (8.4-10.2) mg/dL Ferritin (20-250) ng/mL AST (5-37) U/L Lactate Dehydrogenase (118-273) U/L Total Creatine Kinase (38-174) U/L Troponin I High Sens (<3.5-35.0) ng/L C-Reactive Protein (< or = 0.50) mg/dL B-Natriuretic Peptide (<100) pg/mL Lipase (8-78) U/L 09/23/20 Range/Units 12:10 RBC (4.60-5.80) X10*6/uL Hgb (14.0-18.0) g/dl Hct (42-52) % Plt Count (160-400) X10*3/uL MPV (9.4-12.4) fL Immature Gran % (Auto) (0.0-0.4) % Neut % (Auto) (45-73) % Lymph % (Auto) (20-40) % Lymph # (Auto) (1.2-4.9) X10*3/uL Abs Immat Gran (auto) (0.00-0.03) X10*3/uL Absolute Nucleated RBC (0.0-0.012) X10*3/uL Nucleated RBC % (auto) (0.0-0.2) /100WBC PT (10.8-13.0) SEC INR (0.9-1.1) ABG pCO2 at Pt Temp (32-45) mmHg ABG pCO2 (Temp Corrct (32-45) mmHg ABG pO2 at Pt Temp (83-108) mmHg ABG pO2 (Temp Correct (83-108) ABG HCO3 (22-26) mmol/L Sodium (135-145) mmol/L Chloride (96-108) mmol/L Carbon Dioxide (22-29) mmol/L Anion Gap (12-20) BUN (9-16) mg/dL Creatinine (0.5-1.4) mg/dL POC Glucose 150 H (60-115) mg/dL Random Glucose (60-115) mg/dL Lactic Acid (0.5-2.0) mmol/L Lactic Acid Fup @ 2Hr (0.5-2.0) mmol/L Lactic Acid Fup @ 4Hr (0.5-2.0) mmol/L Calcium (8.4-10.2) mg/dL Ferritin (20-250) ng/mL AST (5-37) U/L Lactate Dehydrogenase (118-273) U/L Total Creatine Kinase (38-174) U/L Troponin I High Sens (<3.5-35.0) ng/L C-Reactive Protein (< or = 0.50) mg/dL B-Natriuretic Peptide (<100) pg/mL Lipase (8-78) U/L Short CBC 09/22/20 09/23/20 Range/Units 20:44 07:05 WBC 6.9 7.4 (4.8-10.8) X10*3/uL Hgb 11.2 L 10.3 L (14.0-18.0) g/dl Hct 35.2 L 32.5 L (42-52) % Plt Count 195 D 153 L (160-400) X10*3/uL BMP 09/22/20 09/23/20 20:44 07:03 Sodium 148 H 148 H Potassium 4.6 4.5 Chloride 110 H 116 H Carbon Dioxide 22 17 L BUN 63 H D 64 H Creatinine 2.27 H 1.87 H Calcium 8.3 L D 7.4 L D Cardiac Enzymes 09/22/20 Range/Units 20:44 Total Creatine Kinase 710 H (38-174) U/L Liver Function 09/22/20 Range/Units 20:44 Total Bilirubin 0.4 (0.0-1.0) mg/dL Direct Bilirubin 0.2 (0.0-0.5) mg/dL AST 54 H (5-37) U/L ALT 20 (0-40) U/L Alkaline Phosphatase 48 D (39-117) U/L Albumin 3.7 (3.5-5.0) g/dL All other labs normal. Assessment and Plan (1) Ileus: Status: Acute Admitted with COVID-19 related pneumonia, dehydration and CT findings of c olonic distension mildly increased from previous. He reports no GI symptoms and his abdominal examination is benign. There is no clinical evidence of ileus. He can resume a diet from the general surgery point of view. (2) Pneumonia due to COVID-19 virus: Status: Acute Admitted with worsening respiratory symptoms and pneumonia. On dexamethasone, remdesivir, ceftriaxone doxycycline. Management per hospitalist service. Pulmonology consultation pending.
[2020-09-23 16:05] LABS: Glucose, Whole Blood 176 mg/dL (60-115)
[2020-09-23] MEDS: Insulin Lispro 100 UNIT/ML 3 ML VIAL SUBCUT (16:25)
[2020-09-23] MEDS: Remdesivir 200 MG in 0.9 % Sodium Chloride 210 ML 105 MG IV (16:26)
--- NOTE | 2020-09-23 17:13 | P.CONPL_ITS ---
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 Patient was tested positive for COVID-19 on 09/15/2020. Of over the last 3-4 days he developed worsening dyspnea and nonproductive cough. On ER evaluation patient was noted to be significantly hypoxic. CT angiogram chest from 09/15/2020 demonstrated no pulmonary emboli. His CT chest from this admission was significant for diffuse ground-glass infiltrates with dense bibasilar component and CT abdomen demonstrated dilated colon. He has been started on dexamethasone and remdesivir and admitted to inpatient service. Review of Systems Constitutional: Constitutional: Denies daytime sleepiness, Denies excessive sweating, Denies fatigue, Denies fever(s), Denies lethargy, Denies malaise, Denies night sweats, Denies snoring and Denies weight loss Eyes: Eyes: Denies blurry vision and Denies itchy eyes ENT: Denies nasal congestion, Denies post nasal drip, Denies sinus pain, Denies sinus pressure and Denies other ( Thrush) Cardiovascular: Cardiovascular: Denies chest pain, Denies pedal edema, Reports dyspnea, Denies orthopnea and Denies paroxysmal nocturnal dyspnea Respiratory: Respiratory: Reports cough, Denies hemoptysis, Denies excessive phlegm production, Reports dyspnea, Denies snoring and Denies wheezing Gastrointestinal: Gastrointestinal: Denies abdominal pain and Denies heartburn Musculoskeletal: Musculoskeletal: Denies myalgias, Denies arthralgias and Denies joint swelling Integumentary/Breasts: Skin/Breast: Denies rash Neurologic: Denies memory loss and Denies seizure-like activity Psychiatric: Psychiatric: Denies abnormal sleep pattern, Denies anxiety and Denies memory loss Endocrine: Endocrine: Denies excessive sweating, Denies fatigue and Denies heat intolerance Hematologic/Lymphatic: Hematologic/Lymphatic: Denies easy bruising Allergic/Immunologic: Allergic/Immunologic: Denies itchy eyes, Denies seasonal rhinorrhea and Denies wheezing PMFSH Past Medical History Medical History (Updated 09/23/20 @ 17:21 by Valentino Ortiz MD) Anemia Benign essential hypertension Diabetes mellitus DVT (deep venous thrombosis) HTN (hypertension) Overweight (BMI 25.0-29.9) Pulmonary embolism Pulmonary granuloma Pure hypercholesterolemia Surgical History Surgical History (Updated 09/23/20 @ 16:06 by Annika Villarreal MD) H/O bilateral cataract extraction History of cholecystectomy Status post bilateral total hip replacement Social History Social History Household Members: Family Housing: House Do you presently have visiting nurse or other home services: No Alcohol intake: never Smoking Status: Never smoker Second Hand Smoke Exposure: No Use of substances other than those prescribed or required for medical reasons: Yes Currently Displaying Signs/Symptoms of Drug Intoxication Withdrawal: No Any prior treatment program specific to substance use: No Have you been hit, kicked, punched, or otherwise hurt by someone within the past year? If so, by whom?: No Do you feel safe in your current relationship?: No Is there a partner from a previous relationship who is making you feel unsafe now?: No Advance Directives: No Advance Directives Information Provided: No Do you have thoughts of harming others: None Do you have a plan to hurt others: No Plan Recently lost weight without trying: Yes service: No Current occupational status: retired [employer] Allergies Allergy/AdvReac Type Severity Reaction Status Date / Time No Known Allergies Allergy Verified 08/04/20 20:40 [No Known Allergies*] Active Medications: Current Medications Generic Name Dose Route Start Last Admin Trade Name Freq PRN Reason Stop Dose Admin Acetaminophen 650 mg 09/23/20 01:11 Acetaminophen 325 Mg Tablet PO Q6H PRN Pain, Mild (Pain Scale 1-3) Albuterol Sulfate 4 puff 09/23/20 01:16 Albuterol Sulfate 90 Mcg 8 Gm Inhaler INHALE Q2H PRN Shortness of Breath/Wheezing Aspirin 81 mg 09/23/20 09:00 09/23/20 09:15 Aspirin Enteric Coated 81 Mg Tablet. PO 81 mg DAILY NELSON Administration Atenolol 25 mg 09/23/20 09:00 09/23/20 09:15 Atenolol 25 Mg Tablet PO 25 mg DAILY NELSON Administration Protocol Dexamethasone Sodium Phosphate 6 mg 09/23/20 09:00 09/23/20 09:15 Dexamethasone Sod Phosphate 4 Mg/Ml Vial IVPUSH 6 mg DAILY NELSON Administration Doxycycline Hyclate 100 mg 09/23/20 14:00 09/23/20 13:15 Doxycycline Hyclate 100 Mg Tablet PO 100 mg Q12H NELSON Administration Guaifenesin/Codeine Phosphate 5 ml 09/23/20 03:01 Guaifen/Codeine Sf 200/20/10ml 10 Ml Liquid PO Q6H PRN Cough Heparin Sodium (Porcine) 7,100 unit 09/23/20 17:00 Heparin Sodium,Porcine 5,000 Unit/Ml Vial 80 unit/kg (7100 unit) IVPUSH BOLUS PRN 80 unit/kg - Heparin Protocol Heparin Sodium (Porcine) 3,600 unit 09/23/20 17:00 Heparin Sodium,Porcine 5,000 Unit/Ml Vial 40 unit/kg (3600 unit) IVPUSH BOLUS PRN 40 unit/kg - Heparin Protocol Ceftriaxone Sodium 1 gm/ 50 mls @ 100 mls/hr 09/23/20 23:00 Sodium Chloride IV Q24H [facility] Heparin Sodium/Sodium Chloride 25,000 unit in 250 mls @ 0 mls/hr 09/23/20 17:00 IVCONT .Q0M [facility] Protocol Per Protocol Remdesivir 200 mg/ Sodium 210 mls @ 105 mls/hr 09/23/20 16:00 09/23/20 16:26 Chloride IV 09/23/20 17:59 105 mls/hr ONCE ONE Administration Remdesivir 100 mg/ Sodium 230 mls @ 115 mls/hr 09/24/20 16:00 Chloride IV 09/27/20 17:59 Q24H [facility] Insulin Human Lispro 0 unit 09/23/20 07:30 09/23/20 16:25 Insulin Lispro 100 Unit/Ml 3 Ml Vial SUBCUT 2 unit QIDACHS [facility] Administration Protocol Pharmacy Consult 1 each 09/22/20 20:27 Consult Rx Perform Med Rec MISCELLANE ONCE PRN Consult order Pravastatin Sodium 20 mg 09/23/20 09:00 09/23/20 09:15 Pravastatin Sodium 20 Mg Tablet PO 20 mg DAILY NELSON Administration Sodium Chloride 3 ml 09/23/20 08:00 09/23/20 16:32 0.9 % Sodium Chloride Flush 3 Ml Syringe IVFLUSH 3 ml QSHIFT [facility] Administration Home Medications Medication Instructions Recorded Confirmed Last Taken Type aspirin 81 mg tablet,delayed 81 mg PO DAILY 08/04/20 09/23/20 09/22/20 History release ferrous sulfate 325 mg (65 mg 325 mg PO BID 08/04/20 09/23/20 09/22/20 History iron) tablet lisinopril 20 mg tablet 20 mg PO DAILY 08/04/20 09/23/20 09/22/20 History Physical Exam Vital Signs: Vital Signs: Last Vital Signs Temp 98.2 F 09/23/20 15:16 Pulse 53 09/23/20 15:16 Resp 20 09/23/20 16:41 BP 118/54 L 09/23/20 15:16 Pulse Ox 88 L 09/23/20 15:16 Body Mass Index 26.6 Const: General: no acute distress, alert and awake Eyes: Sclerae: sclerae normal EOM: EOMs intact bilaterally Neck: Neck: Yes no lymphadenopathy, Yes trachea midline and Yes supple Resp: Effort & Inspection: normal respiratory effort and no respiratory distress Auscultation: crackles (Diffuse bilateral) Cardio: Rate: regular rate Rhythm: regular rhythm Heart sounds: no gallops, no murmurs and no rubs GI: Palpation (GI): Soft to palpation and Other GI palpation findings present ( Nontender) Auscultation: normal bowel sounds Extrem: General: No clubbing, No cyanosis and Yes pedal edema (1+ bilateral) Results Laboratory Findings CBC and BMP: 09/23/20 07:05 09/23/20 07:03 ABG, PT/INR, D-dimer: PT/INR, D-dimer D-Dimer 1852 NG/ML 09/22/20 20:44 Abnormal lab findings: Abnormal Labs 09/22/20 09/22/20 09/22/20 20:44 20:44 20:44 RBC 3.78 L Hgb 11.2 L Hct 35.2 L Plt Count MPV 12.9 H Immature Gran % (Auto) 0.7 H Neut % (Auto) 85.0 H Lymph % (Auto) 6.5 L Lymph # (Auto) 0.5 L Abs Immat Gran (auto) 0.05 H Absolute Nucleated RBC 0.020 H Nucleated RBC % (auto) 0.3 H PT 15.8 H INR 1.3 H ABG pCO2 at Pt Temp ABG pCO2 (Temp Corrct ABG pO2 at Pt Temp ABG pO2 (Temp Correct ABG HCO3 Sodium 148 H Chloride 110 H Carbon Dioxide Anion Gap 21 H BUN 63 H D Creatinine 2.27 H POC Glucose Random Glucose 194 H D Lactic Acid Lactic Acid Fup @ 2Hr Lactic Acid Fup @ 4Hr Calcium 8.3 L D Ferritin AST 54 H Lactate Dehydrogenase 749 H Total Creatine Kinase 710 H Troponin I High Sens C-Reactive Protein 12.66 H B-Natriuretic Peptide Lipase 09/22/20 09/22/20 09/22/20 20:44 20:44 20:44 RBC Hgb Hct Plt Count MPV Immature Gran % (Auto) Neut % (Auto) Lymph % (Auto) Lymph # (Auto) Abs Immat Gran (auto) Absolute Nucleated RBC Nucleated RBC % (auto) PT INR ABG pCO2 at Pt Temp ABG pCO2 (Temp Corrct ABG pO2 at Pt Temp ABG pO2 (Temp Correct ABG HCO3 Sodium Chloride Carbon Dioxide Anion Gap BUN Creatinine POC Glucose Random Glucose Lactic Acid 5.0 H* Lactic Acid Fup @ 2Hr Lactic Acid Fup @ 4Hr Calcium Ferritin 1656 H AST Lactate Dehydrogenase Total Creatine Kinase Troponin I High Sens 417.4 H D C-Reactive Protein B-Natriuretic Peptide 171 H Lipase 183 H 09/22/20 09/23/20 09/23/20 21:44 00:20 00:20 RBC Hgb Hct Plt Count MPV Immature Gran % (Auto) Neut % (Auto) Lymph % (Auto) Lymph # (Auto) Abs Immat Gran (auto) Absolute Nucleated RBC Nucleated RBC % (auto) PT INR ABG pCO2 at Pt Temp 28 L ABG pCO2 (Temp Corrct 28 L ABG pO2 at Pt Temp 53 L ABG pO2 (Temp Correct 52 L ABG HCO3 17 L Sodium Chloride Carbon Dioxide Anion Gap BUN Creatinine POC Glucose Random Glucose Lactic Acid Lactic Acid Fup @ 2Hr 3.0 H* Lactic Acid Fup @ 4Hr Calcium Ferritin AST Lactate Dehydrogenase Total Creatine Kinase Troponin I High Sens 405.3 H C-Reactive Protein B-Natriuretic Peptide Lipase 09/23/20 09/23/20 09/23/20 02:59 07:03 07:05 RBC 3.47 L Hgb 10.3 L Hct 32.5 L Plt Count 153 L MPV 13.0 H Immature Gran % (Auto) 0.8 H Neut % (Auto) 84.5 H Lymph % (Auto) 7.9 L Lymph # (Auto) 0.6 L Abs Immat Gran (auto) 0.06 H Absolute Nucleated RBC 0.020 H Nucleated RBC % (auto) 0.3 H PT INR ABG pCO2 at Pt Temp ABG pCO2 (Temp Corrct ABG pO2 at Pt Temp ABG pO2 (Temp Correct ABG HCO3 Sodium 148 H Chloride 116 H Carbon Dioxide 17 L Anion Gap BUN 64 H Creatinine 1.87 H POC Glucose Random Glucose 184 H Lactic Acid Lactic Acid Fup @ 2Hr Lactic Acid Fup @ 4Hr 2.6 H* Calcium 7.4 L D Ferritin AST Lactate Dehydrogenase Total Creatine Kinase Troponin I High Sens C-Reactive Protein B-Natriuretic Peptide Lipase 09/23/20 09/23/20 12:10 15:58 RBC Hgb Hct Plt Count MPV Immature Gran % (Auto) Neut % (Auto) Lymph % (Auto) Lymph # (Auto) Abs Immat Gran (auto) Absolute Nucleated RBC Nucleated RBC % (auto) PT INR ABG pCO2 at Pt Temp ABG pCO2 (Temp Corrct ABG pO2 at Pt Temp ABG pO2 (Temp Correct ABG HCO3 Sodium Chloride Carbon Dioxide Anion Gap BUN Creatinine POC Glucose 150 H 176 H Random Glucose Lactic Acid Lactic Acid Fup @ 2Hr Lactic Acid Fup @ 4Hr Calcium Ferritin AST Lactate Dehydrogenase Total Creatine Kinase Troponin I High Sens C-Reactive Protein B-Natriuretic Peptide Lipase Assessment and Plan (1) Acute respiratory distress syndrome (ARDS) due to COVID-19 virus: Status: Acute Impression: 70-year-old gentleman admitted with acute hypoxic respiratory heart failure secondary to COVID-19 ARDS further exacerbated by acute on chronic diastolic heart failure, and pulmonary restriction with dilated colon. Patient has been treated with dexamethasone and remdesivir. His recent CT angiogram chest was negative for pulmonary embolus. Recommendation: Agree with remdesivir and dexamethasone. Continue to titrate of supplemental oxygen as tolerated. Consider cardiologic evaluation for decompensation of underlying diastolic congestive heart failure. (2) Acute respiratory failure with hypoxia: Status: Acute (3) Diastolic heart failure: Status: Acute
[2020-09-23] MEDS: Heparin Sodium,Porcine/1/2NS 25,000 UNIT/250 ML IV.SOLN 10 UNIT IVCONT (17:29)
[2020-09-23 18:52] LABS: INTERNATIONAL NORM RATIO 1.4 (0.9-1.1); Prothrombin Time 16.7 SEC (10.8-13.0)
[2020-09-23 18:55] LABS: PTT Heparin Drip 42.7 SEC (53-77.9)
[2020-09-23 19:55] LABS: Glucose, Whole Blood 140 mg/dL (60-115)
--- NOTE | 2020-09-23 21:21 | P.CNID_ITS ---
History of Present Illness Data of Consult Service Date: 09/23/20 Requesting physician: Andrez Burk Primary Care Provider: Unknown Physician HPI Reason for consult: COVID He presents with cough and temperature for a week He was diagnosed with COVID and exposed to ill individuals. Review of Systems Review of Systems: Yes all other systems are reviewed and are negative [facility] Past Medical History Medical History Anemia Benign essential hypertension Diabetes mellitus DVT (deep venous thrombosis) HTN (hypertension) Overweight (BMI 25.0-29.9) Pulmonary embolism Pulmonary granuloma Pure hypercholesterolemia Surgical History Surgical History H/O bilateral cataract extraction History of cholecystectomy Status post bilateral total hip replacement Social History Social History Household Members: Family Housing: House Do you presently have visiting nurse or other home services: No Alcohol intake: never Smoking Status: Never smoker Second Hand Smoke Exposure: No Use of substances other than those prescribed or required for medical reasons: Yes Currently Displaying Signs/Symptoms of Drug Intoxication Withdrawal: No Any prior treatment program specific to substance use: No Have you been hit, kicked, punched, or otherwise hurt by someone within the past year? If so, by whom?: No Do you feel safe in your current relationship?: No Is there a partner from a previous relationship who is making you feel unsafe now?: No Advance Directives: No Advance Directives Information Provided: No Do you have thoughts of harming others: None Do you have a plan to hurt others: No Plan Recently lost weight without trying: Yes service: No Current occupational status: retired [employer] Allergies Allergy/AdvReac Type Severity Reaction Status Date / Time No Known Allergies Allergy Verified 08/04/20 20:40 [No Known Allergies*] Active Medications: Current Medications Generic Name Dose Route Start Last Admin Trade Name Freq PRN Reason Stop Dose Admin Acetaminophen 650 mg 09/23/20 01:11 Acetaminophen 325 Mg Tablet PO Q6H PRN Pain, Mild (Pain Scale 1-3) Albuterol Sulfate 4 puff 09/23/20 01:16 Albuterol Sulfate 90 Mcg 8 Gm Inhaler INHALE Q2H PRN Shortness of Breath/Wheezing Aspirin 81 mg 09/23/20 09:00 09/23/20 09:15 Aspirin Enteric Coated 81 Mg Tablet. PO 81 mg DAILY NELSON Administration Atenolol 25 mg 09/23/20 09:00 09/23/20 09:15 Atenolol 25 Mg Tablet PO 25 mg DAILY NELSON Administration Protocol Dexamethasone Sodium Phosphate 6 mg 09/23/20 09:00 09/23/20 09:15 Dexamethasone Sod Phosphate 4 Mg/Ml Vial IVPUSH 6 mg DAILY NELSON Administration Doxycycline Hyclate 100 mg 09/23/20 14:00 09/23/20 13:15 Doxycycline Hyclate 100 Mg Tablet PO 100 mg Q12H NELSON Administration Guaifenesin/Codeine Phosphate 5 ml 09/23/20 03:01 Guaifen/Codeine Sf 200/20/10ml 10 Ml Liquid PO Q6H PRN Cough Heparin Sodium (Porcine) 7,100 unit 09/23/20 17:00 Heparin Sodium,Porcine 5,000 Unit/Ml Vial 80 unit/kg (7100 unit) IVPUSH BOLUS PRN 80 unit/kg - Heparin Protocol Heparin Sodium (Porcine) 3,600 unit 09/23/20 17:00 Heparin Sodium,Porcine 5,000 Unit/Ml Vial 40 unit/kg (3600 unit) IVPUSH BOLUS PRN 40 unit/kg - Heparin Protocol Ceftriaxone Sodium 1 gm/ 50 mls @ 100 mls/hr 09/23/20 23:00 Sodium Chloride IV Q24H [facility] Heparin Sodium/Sodium Chloride 25,000 unit in 250 mls @ 0 mls/hr 09/23/20 17:00 09/23/20 17:29 IVCONT 11.21 units/kg/hr .Q0M NELSON 10 mls/hr Administration Protocol Per Protocol Remdesivir 100 mg/ Sodium 230 mls @ 115 mls/hr 09/24/20 16:00 Chloride IV 09/27/20 17:59 Q24H [facility] Insulin Human Lispro 0 unit 09/23/20 07:30 09/23/20 20:12 Insulin Lispro 100 Unit/Ml 3 Ml Vial SUBCUT Not Given QIDACHS [facility] Protocol Pharmacy Consult 1 each 09/22/20 20:27 Consult Rx Perform Med Rec MISCELLANE ONCE PRN Consult order Pravastatin Sodium 20 mg 09/23/20 09:00 09/23/20 09:15 Pravastatin Sodium 20 Mg Tablet PO 20 mg DAILY NELSON Administration Sodium Chloride 3 ml 09/23/20 08:00 09/23/20 16:32 0.9 % Sodium Chloride Flush 3 Ml Syringe IVFLUSH 3 ml QSHIFT [facility] Administration Home Medications Medication Instructions Recorded Confirmed Last Taken Type aspirin 81 mg tablet,delayed 81 mg PO DAILY 08/04/20 09/23/20 09/22/20 History release ferrous sulfate 325 mg (65 mg 325 mg PO BID 08/04/20 09/23/20 09/22/20 History iron) tablet lisinopril 20 mg tablet 20 mg PO DAILY 08/04/20 09/23/20 09/22/20 History Physical Exam Vital Signs: Vital Signs: Last Vital Signs Temp 97.4 F 09/23/20 18:59 Pulse 58 09/23/20 18:59 Resp 20 09/23/20 20:06 BP 135/62 09/23/20 18:59 Pulse Ox 88 L 09/23/20 18:59 Body Mass Index 26.6 Const: General: cooperative Resp: Effort & Inspection: abnormal respiratory pattern GI: Palpation (GI): Soft to palpation and nontender Results Labs CBC & Chem 7: 09/23/20 07:05 09/23/20 07:03 Labs: Short CBC 09/23/20 Range/Units 07:05 WBC 7.4 (4.8-10.8) X10*3/uL Hgb 10.3 L (14.0-18.0) g/dl Hct 32.5 L (42-52) % Plt Count 153 L (160-400) X10*3/uL BMP 09/22/20 09/23/20 20:44 07:03 Sodium 148 H 148 H Potassium 4.6 4.5 Chloride 110 H 116 H Carbon Dioxide 22 17 L BUN 63 H D 64 H Creatinine 2.27 H 1.87 H Calcium 8.3 L D 7.4 L D Cardiac Enzymes 09/22/20 Range/Units 20:44 Total Creatine Kinase 710 H (38-174) U/L Liver Function 09/22/20 Range/Units 20:44 Total Bilirubin 0.4 (0.0-1.0) mg/dL Direct Bilirubin 0.2 (0.0-0.5) mg/dL AST 54 H (5-37) U/L ALT 20 (0-40) U/L Alkaline Phosphatase 48 D (39-117) U/L Albumin 3.7 (3.5-5.0) g/dL Assessment and Plan (1) COVID-19: Status: Acute (2) Pneumonia due to COVID-19 virus: Problem details: He has COVID one week and some mild renal insufficency with new oxygen requirement Status: Acute Check LFts and CBC daily Remdesivir and steroids per protocol (3) Acute respiratory distress syndrome (ARDS) due to COVID-19 virus: Status: Acute
[2020-09-24] VITALS (14 sets, daily range): BP systolic 122–162; BP diastolic 60–72; PULSE 54–66; RESP 16–24; TEMP 36.2–36.9; O2SAT 89–96
[2020-09-24 00:11] LABS: PTT Heparin Drip 85.2 SEC (53-77.9)
[2020-09-24 00:47] LABS: Glucose Urine UA NEG (NEG); Leukocyte Esterase Urine NEG (NEG); Nitrite Urine NEG (NEG); Specific Gravity - Urine 1.015 (1.005-1.025); Urine Blood 1+ (NEG); Urine Ketones 15 MG/DL (NEG); Urine Protein 1+ MG/DL (NEG-TRACE)
[2020-09-24 00:50] LABS: Appearance Urine CLEAR; Color Urine YELLOW
[2020-09-24 00:51] LABS: INTERNATIONAL NORM RATIO 1.4 (0.9-1.1); Prothrombin Time 16.9 SEC (10.8-13.0)
[2020-09-24 00:58] LABS: RBC Urine 0-2 /HPF (0); Squamous Epithelial Cell Urine 1+ /LPF; WBC Urine 0-2 /HPF (0-4)
[2020-09-24 00:59] LABS: Amorphous Sediment Urine 1+ /LPF; Granular Casts Urine 0-2 /LPF
[2020-09-24 07:02] LABS: Hematocrit 34.8 % (42-52); Mean Corpuscular HGB Conc 31.6 g/dl (31.0-36.0); Mean Corpuscular Hemoglobin 29.4 pg (27.0-33.0); Mean Platelet Volume 12.7 fL (9.4-12.4); NRBC Pct Auto 0.3 /100WBC (0.0-0.2); Platelet Count 219 X10*3/uL (160-400); Red Blood Count 3.74 X10*6/uL (4.60-5.80); Red Cell Distribution Width 14.8 % (11.0-16.0); White Blood Count 12.5 X10*3/uL (4.8-10.8)
[2020-09-24 07:08] LABS: PTT Heparin Drip 79.6 SEC (53-77.9)
[2020-09-24 07:46] LABS: Glucose, Whole Blood 181 mg/dL (60-115)
[2020-09-24] MEDS: atenoloL 25 MG TABLET PO (07:52)
[2020-09-24] MEDS: Aspirin Enteric Coated 81 MG TABLET.DR PO (07:52)
[2020-09-24] MEDS: Insulin Lispro 100 UNIT/ML 3 ML VIAL SUBCUT ×4 (07:52→20:09)
[2020-09-24] MEDS: Pravastatin Sodium 20 MG TABLET PO (07:53)
[2020-09-24] MEDS: dexAMETHasone sod phosphate 4 MG/ML VIAL 6 MG IVPUSH (07:53)
--- NOTE | 2020-09-24 10:49 | P.PNIM_ITS ---
Subjective Subjective Date of Service: 09/24/20 Interval History: Seen in f/u for acute hypoxic respiraory failure with severe hypoxia with covid 19 infection, MARVIN and elevated DDimer level. He is still very much hypoxi and both NRB and high flow O2 with just above 90 Review of Systems Gen: no fever Resp: sob, CV: no chest, no KURTZ, no leg edema GI: No n/v, no abd pain Neuro: No confusion Physical Exam Vital Signs: Vital Signs: Last Vital Signs Temp 97.6 F 09/24/20 07:34 Pulse 66 09/24/20 07:34 Resp 24 H 09/24/20 08:32 BP 160/68 H 09/24/20 07:34 Pulse Ox 94 09/24/20 07:34 Body Mass Index 26.6 General: Very ill, he looks more comfortale than yesterda Resp: No auscultation due to covid, tachypnea is live, no accesory muslce use CVS: S1,S2,RRR GI: +BS, NT, no distention Skin: No rash Neuro: motor grossly intact Psych: appropriate affect Objective Data Current Medications Generic Name Dose Route Start Last Admin Trade Name Freq PRN Reason Stop Dose Admin Acetaminophen 650 mg 09/23/20 01:11 Acetaminophen 325 Mg Tablet PO Q6H PRN Pain, Mild (Pain Scale 1-3) Albuterol Sulfate 4 puff 09/23/20 01:16 Albuterol Sulfate 90 Mcg 8 Gm Inhaler INHALE Q2H PRN Shortness of Breath/Wheezing Aspirin 81 mg 09/23/20 09:00 09/24/20 07:52 Aspirin Enteric Coated 81 Mg Tablet. PO 81 mg DAILY NELSON Administration Atenolol 25 mg 09/23/20 09:00 09/24/20 07:52 Atenolol 25 Mg Tablet PO 25 mg DAILY NELSON Administration Protocol Dexamethasone Sodium Phosphate 6 mg 09/23/20 09:00 09/24/20 07:53 Dexamethasone Sod Phosphate 4 Mg/Ml Vial IVPUSH 6 mg DAILY NELSON Administration Doxycycline Hyclate 100 mg 09/23/20 14:00 09/24/20 01:39 Doxycycline Hyclate 100 Mg Tablet PO 100 mg Q12H NELSON Administration Guaifenesin/Codeine Phosphate 5 ml 09/23/20 03:01 Guaifen/Codeine Sf 200/20/10ml 10 Ml Liquid PO Q6H PRN Cough Heparin Sodium (Porcine) 7,100 unit 09/23/20 17:00 Heparin Sodium,Porcine 5,000 Unit/Ml Vial 80 unit/kg (7100 unit) IVPUSH BOLUS PRN 80 unit/kg - Heparin Protocol Heparin Sodium (Porcine) 3,600 unit 09/23/20 17:00 Heparin Sodium,Porcine 5,000 Unit/Ml Vial 40 unit/kg (3600 unit) IVPUSH BOLUS PRN 40 unit/kg - Heparin Protocol Ceftriaxone Sodium 1 gm/ 50 mls @ 100 mls/hr 09/23/20 23:00 09/24/20 00:09 Sodium Chloride IV Infused Q24H NELSON Infusion Heparin Sodium/Sodium Chloride 25,000 unit in 250 mls @ 0 mls/hr 09/23/20 17:00 09/24/20 07:32 IVCONT 7.21 units/kg/hr .Q0M NELSON 6.43 mls/hr Titration Protocol Per Protocol Remdesivir 100 mg/ Sodium 230 mls @ 115 mls/hr 09/24/20 16:00 Chloride IV 09/27/20 17:59 Q24H [facility] Insulin Human Lispro 0 unit 09/23/20 07:30 09/24/20 07:52 Insulin Lispro 100 Unit/Ml 3 Ml Vial SUBCUT 2 unit QIDACHS [facility] Administration Protocol Pharmacy Consult 1 each 09/22/20 20:27 Consult Rx Perform Med Rec MISCELLANE ONCE PRN Consult order Pravastatin Sodium 20 mg 09/23/20 09:00 09/24/20 07:53 Pravastatin Sodium 20 Mg Tablet PO 20 mg DAILY [facility] Administration Sodium Chloride 3 ml 09/23/20 08:00 09/24/20 07:52 0.9 % Sodium Chloride Flush 3 Ml Syringe IVFLUSH Not Given QSHIFT [facility] Labs CBC & Chem 7: 09/24/20 06:48 09/23/20 07:03 Microbiology Microbiology Results: Microbiology 09/22/20 21:41 Blood - Venous Blood Culture - Preliminary No growth after 24 hours. 09/22/20 20:44 Blood - Venous Blood Culture - Preliminary No growth after 24 hours. 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 Acute hypoxic respiratory failure due to covid 19, he is requiring large amount of oxygen by NRB and high flow -Dexamethasone D3 -Remdesevir D2 -ABG -Pulmonology following -ID recommend Remdesevir + steroid -Empiric Abx Elevated DDimer with MARVIN, unable to do CTA, received a dose of Lovenox at 5 this AM He is unable to lay flat for VQ scan, DDimer is > 1800, he has history of DVT and PE and not anticoagulated Will continue anticoagulation with heparin until VQ or CTA can be done. Due to high risk of PE, and covid being pro-coagulant, empiric Heparin and once better get VQ Lactic acidosis--d/t likely hypoxia, viral sepsis, renal failure MARVIN: pre renal azotemia and is better, continue monitoring Hypernatremia: due to dehydration, IVF and reassess Elevated troponins: likely related to hypoxia and renal failure, cardiology assessing, Ileus: Seen by surgery no acute surgical issues Diabetes: Insulin sliding scale Code status: Full code.
[2020-09-24 11:16] LABS: Glucose, Whole Blood 199 mg/dL (60-115)
[2020-09-24 12:00] LABS: Anion Gap 18 (12-20); Blood Urea Nitrogen 63 mg/dL (9-16); Calcium 8.1 mg/dL (8.4-10.2); Carbon Dioxide 21 mmol/L (22-29); Chloride 117 mmol/L (96-108); Creatinine Clr Calc Pharmacy 49.5; Estimated Glomerular Filt Rate 46; Glucose Random 187 mg/dL (60-115); Potassium 4.3 mmol/L (3.3-5.1); Sodium 152 mmol/L (135-145)
[2020-09-24 14:09] LABS: PTT Heparin Drip 50.7 SEC (53-77.9)
[2020-09-24] MEDS: Heparin Sodium,Porcine 5,000 UNIT/ML VIAL 3600 UNIT IVPUSH (14:33)
[2020-09-24 16:10] LABS: Glucose, Whole Blood 192 mg/dL (60-115)
[2020-09-24] MEDS: Remdesivir 100 MG in 0.9 % Sodium Chloride 230 ML 115 MG IV (16:42)
[2020-09-24] MEDS: Heparin Sodium,Porcine/1/2NS 25,000 UNIT/250 ML IV.SOLN 8.22 UNIT IVCONT (16:49)
--- NOTE | 2020-09-24 19:23 | PC.NURSE ---
patient on heparin drip,started on remdesivir with first dose to be administered,only one iv access, both meds never tested for compatibility.Pharmacy recommand to infuse through a separate site.Patient is very difficult stick,so far all tries unsuccessful.Patient is refusing lexx fernandez.Dr Burk and receiving RN aware.
[2020-09-24 19:57] LABS: Glucose, Whole Blood 272 mg/dL (60-115)
[2020-09-24] MEDS: 0.9 % Sodium Chloride Flush 3 ML SYRINGE IVFLUSH (20:12)
[2020-09-24 21:08] LABS: PTT Heparin Drip 80.7 SEC (53-77.9)
--- NOTE | 2020-09-24 21:27 | PC.NURSE ---
20:46 PTTHD came back at 80.7 seconds. Decreased heparin drip 2u/kg/hr per protocol. Drip is now running at 7.21u/kg/hr (6.43ml/hr). [place] [address]/25/20.
--- NOTE | 2020-09-24 21:34 | PC.NURSE ---
Pt has remdesevir ordered for 1600. Day shift RN reported to this RN that the patient only has one IV access which the heparin drip is running through. Day shift RN reported she tried multiple times to access another IV site but no success. Pt became agitated and refused any further sticks. This RN asked the patient if an RN from the ED could attempt but he still refused. Dr. Hearn aware and stated it is ok to hold the remdesevir for now. Will continue to monitor.
[2020-09-24] MEDS: guaiFEN/Codeine SF 200/20/10ML 10 ML LIQUID 5 ML PO (23:12)
[2020-09-24] MEDS: cefTRIAXone sodium 1 GM in 0.9 % Sodium Chloride 50 ML IV (23:12)
[2020-09-25] VITALS (13 sets, daily range): BP systolic 131–158; BP diastolic 61–73; PULSE 54–80; RESP 18–24; TEMP 36.1–36.6; O2SAT 87–96
[2020-09-25 04:00] LABS: PTT Heparin Drip 52.1 SEC (53-77.9)
[2020-09-25] MEDS: diphenhydrAMINE HCL 25 MG TABLET PO (04:03)
[2020-09-25] MEDS: Heparin Sodium,Porcine 5,000 UNIT/ML VIAL 3600 UNIT IVPUSH ×2 (04:15→18:27)
[2020-09-25 04:41] LABS: Procalcitonin 0.13 ng/mL
[2020-09-25 07:42] LABS: Glucose, Whole Blood 175 mg/dL (60-115)
[2020-09-25] MEDS: 0.9 % Sodium Chloride Flush 3 ML SYRINGE IVFLUSH ×3 (08:12→22:29)
[2020-09-25] MEDS: Insulin Lispro 100 UNIT/ML 3 ML VIAL SUBCUT ×4 (08:12→22:28)
[2020-09-25] MEDS: dexAMETHasone sod phosphate 4 MG/ML VIAL 6 MG IVPUSH (08:12)
[2020-09-25] MEDS: atenoloL 25 MG TABLET PO (08:13)
[2020-09-25] MEDS: Pravastatin Sodium 20 MG TABLET PO (08:13)
[2020-09-25] MEDS: Aspirin Enteric Coated 81 MG TABLET.DR PO (08:13)
[2020-09-25] MEDS: guaiFEN/Codeine SF 200/20/10ML 10 ML LIQUID 5 ML PO ×2 (08:21→18:01)
[2020-09-25 11:07] LABS: PTT Heparin Drip 79.1 SEC (53-77.9)
[2020-09-25 11:27] LABS: Glucose, Whole Blood 298 mg/dL (60-115)
--- NOTE | 2020-09-25 11:46 | P.PNIM_ITS ---
Subjective Subjective Date of Service: 09/26/20 Interval History: Seen in f/u for acute hypoxic respiraory failure with severe hypoxia with covid 19 infection, MARVIN and elevated DDimer level. He is still very much hypoxi and both NRB and high flow O2 with just above 95 Review of Systems Gen: no fever Resp: sob, CV: no chest, no KURTZ, no leg edema GI: No n/v, no abd pain Neuro: No confusion Physical Exam Vital Signs: Vital Signs: Last Vital Signs Temp 97.9 F 09/25/20 11:25 Pulse 60 09/25/20 11:25 Resp 20 09/25/20 11:25 BP 137/61 09/25/20 11:25 Pulse Ox 95 09/25/20 11:25 Body Mass Index 26.6 Const: Other: General: ill looking, he looks more comfortale than yesterday Resp: No auscultation due to covid, tachypnea is live, no accesory muslce use, speaks in full sentences CVS: S1,S2,RRR on monitor, no leg edam dry skin GI: +BS, NT, no distention Skin: No rash Neuro: motor grossly intact Psych: appropriate affect Objective Data Current Medications Generic Name Dose Route Start Last Admin Trade Name Freq PRN Reason Stop Dose Admin Acetaminophen 650 mg 09/23/20 01:11 Acetaminophen 325 Mg Tablet PO Q6H PRN Pain, Mild (Pain Scale 1-3) Albuterol Sulfate 4 puff 09/23/20 01:16 Albuterol Sulfate 90 Mcg 8 Gm Inhaler INHALE Q2H PRN Shortness of Breath/Wheezing Aspirin 81 mg 09/23/20 09:00 09/25/20 08:13 Aspirin Enteric Coated 81 Mg Tablet. PO 81 mg DAILY NELSON Administration Atenolol 25 mg 09/23/20 09:00 09/25/20 08:13 Atenolol 25 Mg Tablet PO 25 mg DAILY NELSON Administration Protocol Dexamethasone Sodium Phosphate 6 mg 09/23/20 09:00 09/25/20 08:12 Dexamethasone Sod Phosphate 4 Mg/Ml Vial IVPUSH 6 mg DAILY NELSON Administration Doxycycline Hyclate 100 mg 09/23/20 14:00 09/25/20 02:15 Doxycycline Hyclate 100 Mg Tablet PO 100 mg Q12H NELSON Administration Guaifenesin/Codeine Phosphate 5 ml 09/23/20 03:01 09/25/20 08:21 Guaifen/Codeine Sf 200/20/10ml 10 Ml Liquid PO 5 ml Q6H PRN Administration Cough Heparin Sodium (Porcine) 7,100 unit 09/23/20 17:00 Heparin Sodium,Porcine 5,000 Unit/Ml Vial 80 unit/kg (7100 unit) IVPUSH BOLUS PRN 80 unit/kg - Heparin Protocol Heparin Sodium (Porcine) 3,600 unit 09/23/20 17:00 09/25/20 04:15 Heparin Sodium,Porcine 5,000 Unit/Ml Vial 40 unit/kg (3600 unit) 3,568 unit IVPUSH Administration BOLUS PRN 40 unit/kg - Heparin Protocol Ceftriaxone Sodium 1 gm/ 50 mls @ 100 mls/hr 09/23/20 23:00 09/24/20 23:42 Sodium Chloride IV Infused Q24H NELSON Infusion Heparin Sodium/Sodium Chloride 25,000 unit in 250 mls @ 0 mls/hr 09/23/20 17:00 09/25/20 11:15 IVCONT 7.21 units/kg/hr .Q0M NELSON 6.43 mls/hr Titration Protocol Per Protocol Remdesivir 100 mg/ Sodium 230 mls @ 115 mls/hr 09/24/20 16:00 09/25/20 08:15 Chloride IV 09/27/20 17:59 Infused Q24H NELSON Infusion Insulin Human Lispro 0 unit 09/23/20 07:30 09/25/20 08:12 Insulin Lispro 100 Unit/Ml 3 Ml Vial SUBCUT 2 unit QIDACHS [facility] Administration Protocol Pharmacy Consult 1 each 09/22/20 20:27 Consult Rx Perform Med Rec MISCELLANE ONCE PRN Consult order Pravastatin Sodium 20 mg 09/23/20 09:00 09/25/20 08:13 Pravastatin Sodium 20 Mg Tablet PO 20 mg DAILY NELSON Administration Sodium Chloride 3 ml 09/23/20 08:00 09/25/20 08:12 0.9 % Sodium Chloride Flush 3 Ml Syringe IVFLUSH 3 ml QSHIFT [facility] Administration Labs CBC & Chem 7: 09/24/20 06:48 09/26/20 07:26 Microbiology Microbiology Results: Microbiology 09/22/20 21:41 Blood - Venous Blood Culture - Preliminary No growth after 48 hours. 09/22/20 20:44 Blood - Venous Blood Culture - Preliminary No growth after 48 hours. 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 Acute hypoxic respiratory failure due to covid 19, he is requiring large amount of oxygen by NRB and high flow -wean off high flow -Dexamethasone D5 -Remdesevir D4 -Pulmonology following -ID recommend Remdesevir + steroid -Empiric Abx Elevated DDimer with MARVIN, unable to do CTA due to renal failure, received He is unable to lay flat for VQ scan, DDimer is > 1800, he has history of DVT and PE and not anticoagulated Will continue anticoagulation with heparin until VQ or CTA can be done safely--was too hypoxic to get it done today Due to high risk of PE, and covid being pro-coagulant, empiric Heparin and once better get CTA or VQ Lactic acidosis--d/t likely hypoxia, viral sepsis, renal failure MARVIN: pre renal azotemia, this has resolved. Hypernatremia: d/t free water deficit, improving, continue D5 Elevated troponins: likely related to hypoxia and renal failure, cardiology recommends no further intervention at this time Ileus: Seen by surgery no acute surgical issues Diabetes: Insulin sliding scale. Will discuss with patient family Code status: Full code.
[2020-09-25 12:42] LABS: Anion Gap 16 (12-20); Blood Urea Nitrogen 55 mg/dL (9-16); Calcium 7.9 mg/dL (8.4-10.2); Carbon Dioxide 22 mmol/L (22-29); Chloride 117 mmol/L (96-108); Creatinine Clr Calc Pharmacy 56.3; Estimated Glomerular Filt Rate 53; Glucose Random 284 mg/dL (60-115); Potassium 4.2 mmol/L (3.3-5.1); Sodium 151 mmol/L (135-145)
[2020-09-25] MEDS: Dextrose 5 % 1,000 ML 75 ML IVCONT (12:52)
[2020-09-25 16:10] LABS: Glucose, Whole Blood 313 mg/dL (60-115)
[2020-09-25] MEDS: Heparin Sodium,Porcine/1/2NS 25,000 UNIT/250 ML IV.SOLN 6.43 UNIT IVCONT (17:11)
[2020-09-25] MEDS: Remdesivir 100 MG in 0.9 % Sodium Chloride 230 ML 115 MG IV (17:13)
[2020-09-25 18:15] LABS: PTT Heparin Drip 49.3 SEC (53-77.9)
[2020-09-25 20:41] LABS: Glucose, Whole Blood 290 mg/dL (60-115)
[2020-09-25] MEDS: cefTRIAXone sodium 1 GM in 0.9 % Sodium Chloride 50 ML IV (22:29)
[2020-09-26] VITALS (11 sets, daily range): BP systolic 146–193; BP diastolic 63–84; PULSE 55–84; RESP 16–22; TEMP 35.7–36.7; O2SAT 88–96
[2020-09-26 01:00] LABS: PTT Heparin Drip 89.1 SEC (53-77.9)
[2020-09-26] MEDS: Dextrose 5 % 1,000 ML 75 ML IVCONT ×2 (03:04→13:13)
[2020-09-26 07:13] LABS: Glucose, Whole Blood 259 mg/dL (60-115)
[2020-09-26] MEDS: 0.9 % Sodium Chloride Flush 3 ML SYRINGE IVFLUSH ×3 (07:27→22:18)
[2020-09-26] MEDS: dexAMETHasone sod phosphate 4 MG/ML VIAL 6 MG IVPUSH (07:27)
[2020-09-26] MEDS: Insulin Lispro 100 UNIT/ML 3 ML VIAL SUBCUT ×4 (07:27→20:43)
[2020-09-26] MEDS: atenoloL 25 MG TABLET PO (07:28)
[2020-09-26] MEDS: Aspirin Enteric Coated 81 MG TABLET.DR PO (07:28)
[2020-09-26] MEDS: Pravastatin Sodium 20 MG TABLET PO (07:28)
[2020-09-26] MEDS: guaiFEN/Codeine SF 200/20/10ML 10 ML LIQUID 5 ML PO ×2 (07:30→13:13)
[2020-09-26 07:55] LABS: PTT Heparin Drip 44.3 SEC (53-77.9)
[2020-09-26 08:04] LABS: Anion Gap 14 (12-20); Blood Urea Nitrogen 48 mg/dL (9-16); Calcium 7.9 mg/dL (8.4-10.2); Carbon Dioxide 22 mmol/L (22-29); Chloride 115 mmol/L (96-108); Estimated Glomerular Filt Rate > 60; Glucose Random 285 mg/dL (60-115); Potassium 4.4 mmol/L (3.3-5.1); Sodium 147 mmol/L (135-145)
[2020-09-26] MEDS: Heparin Sodium,Porcine 5,000 UNIT/ML VIAL 3600 UNIT IVPUSH (08:32)
[2020-09-26 11:10] LABS: Glucose, Whole Blood 223 mg/dL (60-115)
--- NOTE | 2020-09-26 13:01 | MHC.CM.PN ---
Per ROUNDS discussion, Patient is not yet medically cleared for dc (IV Decadron, IV Ceftriaxone, IV Heparin, IV Remdesivir, High Flow O2). Home resume supports is the goal and CM will follow for possible need to adjust the dc plan.
[2020-09-26 14:44] LABS: ABG Base Excess -2.5 mmol/L; ABG HCO3 21 mmol/L (22-26); ABG pCO2 36 mmHg (32-45); ABG pCO2 TC 36 mmHg (32-45); ABG pH 7.39 (7.35-7.45); ABG pH TC 7.38 (7.35-7.45); ABG pO2 77 mmHg (83-108); ABG pO2 TC 77 (83-108)
[2020-09-26 14:45] LABS: ABG Refer to POC result
[2020-09-26 15:04] LABS: PTT Heparin Drip 74.1 SEC (53-77.9)
[2020-09-26] MEDS: Remdesivir 100 MG in 0.9 % Sodium Chloride 230 ML 115 MG IV (16:07)
[2020-09-26 16:25] LABS: Glucose, Whole Blood 207 mg/dL (60-115)
[2020-09-26] MEDS: Heparin Sodium,Porcine/1/2NS 25,000 UNIT/250 ML IV.SOLN 8.22 UNIT IVCONT (18:36)
[2020-09-26 19:57] LABS: Glucose, Whole Blood 281 mg/dL (60-115)
[2020-09-26 21:17] LABS: PTT Heparin Drip 61.4 SEC (53-77.9)
[2020-09-26] MEDS: cefTRIAXone sodium 1 GM in 0.9 % Sodium Chloride 50 ML IV (22:17)
[2020-09-27] VITALS (7 sets, daily range): BP systolic 144–158; BP diastolic 62–78; PULSE 64–79; RESP 16–22; TEMP 35.9–36.2; O2SAT 87–94
[2020-09-27] MEDS: Dextrose 5 % 1,000 ML 75 ML IVCONT (03:05)
[2020-09-27 07:04] LABS: PTT Heparin Drip 48.7 SEC (53-77.9)
[2020-09-27 07:55] LABS: Glucose, Whole Blood 203 mg/dL (60-115)
[2020-09-27] MEDS: 0.9 % Sodium Chloride Flush 3 ML SYRINGE IVFLUSH ×2 (09:00→16:48)
[2020-09-27] MEDS: Heparin Sodium,Porcine 5,000 UNIT/ML VIAL 3600 UNIT IVPUSH (09:30)
[2020-09-27] MEDS: dexAMETHasone sod phosphate 4 MG/ML VIAL 6 MG IVPUSH (09:34)
[2020-09-27 11:21] LABS: Glucose, Whole Blood 223 mg/dL (60-115)
--- NOTE | 2020-09-27 11:31 | P.EN_ITS ---
Event Note Date of Service: 09/27/20 Event Note: In light of patient's continuing decline and poor prognosis and si ngnificant sinus pauses, and patient's been saying he doesn't want any of this brother Gold HCP on no aggresive measure, no pace maker and he's on his way to sign DNR/MOLST form but has given me verbal authorization for DNR and also conveyed the same message to Dr. Ramirez, therefore, code status has been changed to DNR/DNI.
--- NOTE | 2020-09-27 11:33 | P.PNCA_ITS ---
Subjective Subjective Date of Service: 09/27/20 <ANDREA Rahman - Last Filed: 09/27/20 11:54> 09/27/20 <Phillip Ramirez MD - Last Filed: 09/27/20 14:33> Principal diagnosis: Covid PNA, elevated Trop, sinus pause, junctional escape beats <ANDREA Rahman - Last Filed: 09/27/20 11:54> Interval history: Cardiology follow up for sinus pause, junctional escape beats. Seen at 0930. Today he is observed in bed with high flow O2 with nasal cannula and nonrebreather mask. He has increased work of breathing, moaning and answering in 1 word responses. He denies having pain. <ANDREA Rahman - Last Filed: 09/27/20 11:54> Review of Systems Review of Systems as above <ANDREA Rahman - Last Filed: 09/27/20 11:54> Yes Unobtainable due to mental condition <ANDREA Rahman - Last Filed: 09/27/20 11:54> Physical Exam Vital Signs: Last Vital Signs Temp 97.1 F 09/27/20 08:00 Pulse 74 09/27/20 08:00 Resp 22 H 09/27/20 08:00 BP 158/71 H 09/27/20 08:00 Pulse Ox 90 L 09/27/20 08:00 Body Mass Index 26.6 <ANDREA Rahman - Last Filed: 09/27/20 11:54> Const Other: Ill appearing elderly male with respirator difficulty, laying in bed with high flow nasal cannula and nonrebreather mask- sats 88%, speaking limited due to work of breathing, unclear full orientation, does follow commands <ANDREA Rahman - Last Filed: 09/27/20 11:54> General: ill appearing <ANDREA Rahman - Last Filed: 09/27/20 11:54> Neck Neck: Yes normal visual inspection and Yes no JVD <ANDREA Rahman - Last Filed: 09/27/20 11:54> Resp Other: moaning, Lung sounds difficult to auscultate with noise from high flow O2, no cough at present <ANDREA Rahman - Last Filed: 09/27/20 11:54> Effort & Inspection: labored <ANDREA Rahman Last Filed: 09/27/20 11:54> Cardio Rate: regular rate <ANDREA Rahman Last Filed: 09/27/20 11:54> Rhythm: regular rhythm <ANDREA Rahman Last Filed: 09/27/20 11:54> Heart sounds: S1 normal heart sound present (Heat tones distant) and S2 normal heart sound present <ANDREA Rahman Last Filed: 09/27/20 11:54> GI Inspection: Yes normal to inspection <ANDREA Rahman Last Filed: 09/27/20 11:54> Skin Other: Skin color pale <ANDREA Rahman Last Filed: 09/27/20 11:54> Extrem Other: Lower legs with dry scaling skin <ANDREA Rahman Last Filed: 09/27/20 11:54> General: No edema <ANDREA Rahman Last Filed: 09/27/20 11:54> Results Labs and Meds Result diagrams: : 09/24/20 06:48 09/26/20 07:26 <ANDREA Rahman Last Filed: 09/27/20 11:54> Lab results: Laboratory Results - last 24 hr 09/26/20 09/26/20 09/26/20 14:37 14:46 16:21 PTT (Heparin Protocol) 74.1 D O2 Saturation 93.0 ABG pH at Pt Temp 7.39 ABG pH (Temp Correct) 7.38 ABG pCO2 at Pt Temp 36 ABG pCO2 (Temp Corrct 36 ABG pO2 at Pt Temp 77 L ABG pO2 (Temp Correct 77 L ABG HCO3 21 L ABG Base Excess (Actual) -2.5 POC Glucose 207 H 09/26/20 09/26/20 09/27/20 19:44 20:47 06:15 PTT (Heparin Protocol) 61.4 48.7 L D O2 Saturation ABG pH at Pt Temp ABG pH (Temp Correct) ABG pCO2 at Pt Temp ABG pCO2 (Temp Corrct ABG pO2 at Pt Temp ABG pO2 (Temp Correct ABG HCO3 ABG Base Excess (Actual) POC Glucose 281 H 09/27/20 09/27/20 07:42 11:10 PTT (Heparin Protocol) O2 Saturation ABG pH at Pt Temp ABG pH (Temp Correct) ABG pCO2 at Pt Temp ABG pCO2 (Temp Corrct ABG pO2 at Pt Temp ABG pO2 (Temp Correct ABG HCO3 ABG Base Excess (Actual) POC Glucose 203 H 223 H <ANDREA Rahman - Last Filed: 09/27/20 11:54> Progress Note: A&P Assessment and plan (1) Acute respiratory failure with hypoxia: Status: Acute <ANDREA Rahman - Last Filed: 09/27/20 11:54> Assessment and Plan: Requiring high levels of O2 to maintain O2 saturations in upper 80s. Condition with poor prognosis per hospitalist - his event note reviewed. Code status being changed to DNR/ DNI. <ANDREA Rahman - Last Filed: 09/27/20 11:54> Case discussed with Evelyn Lucio. Patient with progressive worsening of his respiratory status and hypoxic despite high levels oxygen. Clinically not improving. Being managed by hospitalist team. <Phillip Ramirez MD - Last Filed: 09/27/20 14:33> (2) Acute respiratory distress syndrome (ARDS) due to COVID-19 virus: Status: Acute <ANDREA Rahman - Last Filed: 09/27/20 11:54> (3) Elevated troponin: Status: Acute <ANDREA Rahman - Last Filed: 09/27/20 11:54> Assessment and Plan: Elevated on admit. EKG without acute ST/ T wave abn. Elevation most likely related to hypoxia and infection. Echo previously ordered. Has not been completed yet. Can hold at present time. <ANDREA aRhman - Last Filed: 09/27/20 11:54> (4) Sinus pause: Status: Acute <ANDREA Rahman - Last Filed: 09/27/20 11:54> Assessment and Plan: 11 sec Sinus pause occurred at 0247 followed by slow junctional escape beats. Tele this am showing SR. Dr Ramirez spoke with pts brother, health care proxy, regarding temporary PPM. Brother wants no invasive measures. Pt being changed to a DRR/ DNI as above. Ongoing medical mgt for his acute illness. Will stop his atenolol. <ANDREA Rahman - Last Filed: 09/27/20 11:54> Patient with significant sinus pause of 11 seconds overnight. Not correlate with any clear hypoxemia. However this clearly requires pacing support. Had a very detailed discussion with his brother who is his healthcare proxy. Patient as per the hospitalist team not able to make decisions. After long discussion about need for aggressive measures including temporary transvenous pacing and possibly admission to ICU and requiring mechanical support for breathing, patient is currently decided to pursue conservative management. Risks of were discussed. He understands and agrees. Will sign of the case at this point time. Patient will be managed mostly for pulmonary palliative care as per the hospitalist team <Phillip Ramirez MD - Last Filed: 09/27/20 14:33> Fall Risk Details Current Medications: Current Medications Generic Name Dose Route Start Last Admin Trade Name Freq PRN Reason Stop Dose Admin Acetaminophen 650 mg 09/23/20 01:11 Acetaminophen 325 Mg Tablet PO Q6H PRN Pain, Mild (Pain Scale 1-3) Albuterol Sulfate 4 puff 09/23/20 01:16 Albuterol Sulfate 90 Mcg 8 Gm Inhaler INHALE Q2H PRN Shortness of Breath/Wheezing Aspirin 81 mg 09/23/20 09:00 09/26/20 07:28 Aspirin Enteric Coated 81 Mg Tablet. PO 81 mg DAILY NELSON Administration Atenolol 25 mg 09/23/20 09:00 09/26/20 07:28 Atenolol 25 Mg Tablet PO 25 mg DAILY NELSON Administration Protocol Dexamethasone Sodium Phosphate 6 mg 09/23/20 09:00 09/27/20 09:34 Dexamethasone Sod Phosphate 4 Mg/Ml Vial IVPUSH 6 mg DAILY NELSON Administration Doxycycline Hyclate 100 mg 09/23/20 14:00 09/27/20 02:45 Doxycycline Hyclate 100 Mg Tablet PO 100 mg Q12H NELSON Administration Guaifenesin/Codeine Phosphate 5 ml 09/23/20 03:01 09/26/20 13:13 Guaifen/Codeine Sf 200/20/10ml 10 Ml Liquid PO 5 ml Q6H PRN Administration Cough Heparin Sodium (Porcine) 7,100 unit 09/23/20 17:00 Heparin Sodium,Porcine 5,000 Unit/Ml Vial 80 unit/kg (7100 unit) IVPUSH BOLUS PRN 80 unit/kg - Heparin Protocol Heparin Sodium (Porcine) 3,600 unit 09/23/20 17:00 09/27/20 09:30 Heparin Sodium,Porcine 5,000 Unit/Ml Vial 40 unit/kg (3600 unit) 3,600 unit IVPUSH Administration BOLUS PRN 40 unit/kg - Heparin Protocol Ceftriaxone Sodium 1 gm/ 50 mls @ 100 mls/hr 09/23/20 23:00 09/26/20 22:53 Sodium Chloride IV Infused Q24H NELSON Infusion Heparin Sodium/Sodium Chloride 25,000 unit in 250 mls @ 0 mls/hr 09/23/20 17:00 09/27/20 09:30 IVCONT 11.21 units/kg/hr .Q0M NELSON 10 mls/hr Titration Protocol Per Protocol Remdesivir 100 mg/ Sodium 230 mls @ 115 mls/hr 09/24/20 16:00 09/26/20 18:16 Chloride IV 09/27/20 17:59 Infused Q24H NELSON Infusion Dextrose 1,000 mls @ 75 mls/hr 09/25/20 12:00 09/27/20 03:05 D5w IVCONT 75 mls/hr .[id number] NELSON Administration Insulin Human Lispro 0 unit 09/23/20 07:30 09/27/20 09:00 Insulin Lispro 100 Unit/Ml 3 Ml Vial SUBCUT Not Given QIDACHS NELSON Protocol Pharmacy Consult 1 each 09/22/20 20:27 Consult Rx Perform Med Rec MISCELLANE ONCE PRN Consult order Pravastatin Sodium 20 mg 09/23/20 09:00 09/26/20 07:28 Pravastatin Sodium 20 Mg Tablet PO 20 mg DAILY NELSON Administration Sodium Chloride 3 ml 09/23/20 08:00 09/27/20 09:00 0.9 % Sodium Chloride Flush 3 Ml Syringe IVFLUSH 3 ml QSHIFT NELSON Administration <ANDREA Rahman - Last Filed: 09/27/20 11:54> Time Spent With Patient Time: Total time spent is greater than 50% in coordination of care (as docume nted) at patient's floor/unit and/or counseling patient: 20 <ANDREA Rahman - Last Filed: 09/27/20 11:54> Time with patient: 15 - 24 minutes <ANDREA Rahman - Last Filed: 09/27/20 11:54>
--- NOTE | 2020-09-27 13:34 | MHC.CM.PN ---
DP Male 70. The Patient has a 1:1 sitter to prevent removal of O2 mask. He has had a code status change. His Son came in to document a Molst form with Dr Burk. CM will follow.
[2020-09-27] MEDS: Morphine Sulfate 2 MG/ML CARTRIDGE IVPUSH (14:44)
--- NOTE | 2020-09-27 16:30 | HO.PM.IMPN ---
Subjective Subjective Date of Service: 09/27/20 Interval History: Seen in f/u for acute hypoxic respiraory failure with severe hypoxia with covid 19 infection..Respiratory status is not improving, and he remains on high flow and NRB and barely keeping sat near 90. He has a long sinus pause of 11 seconds and mentally seem confused, agitated at time, trying to reomove oxygen and has sitter Physical Exam Vital Signs: Vital Signs: Last Vital Signs Temp 96.6 F L 09/27/20 12:00 Pulse 76 09/27/20 12:00 Resp 22 H 09/27/20 15:17 BP 150/62 H 09/27/20 12:00 Pulse Ox 92 09/27/20 12:00 Body Mass Index 26.6 Const: Other: General: Ill apearing some respiratory distress, Resp: No auscultation due to covid, not as tachypnic anymore, but has some accessory muscle use CVS: S1,S2,RRR on monitor, no leg edam dry skin GI: +BS, NT, no distention Skin: No rash Neuro: motor grossly intact Psych: flat affect Objective Data Current Medications Generic Name Dose Route Start Last Admin Trade Name Freq PRN Reason Stop Dose Admin Acetaminophen 650 mg 09/23/20 01:11 Acetaminophen 325 Mg Tablet PO Q6H PRN Pain, Mild (Pain Scale 1-3) Lorazepam 1 mg 09/27/20 13:38 Lorazepam 0.5 Mg Tablet SUBLINGUAL Q4H PRN anxiety/restlessness Morphine Sulfate 2 mg 09/27/20 13:35 09/27/20 14:44 Morphine Sulfate 2 Mg/Ml Cartridge IVPUSH 2 mg Q2H PRN Administration comfort Pharmacy Consult 1 each 09/22/20 20:27 Consult Rx Perform Med Rec MISCELLANE ONCE PRN Consult order Sodium Chloride 3 ml 09/23/20 08:00 09/27/20 09:00 0.9 % Sodium Chloride Flush 3 Ml Syringe IVFLUSH 3 ml QSHIFT NELSON Administration Labs CBC & Chem 7: 09/24/20 06:48 09/26/20 07:26 Microbiology Microbiology Results: Microbiology 09/22/20 21:41 Blood - Venous Blood Culture - Preliminary No growth after 48 hours. 09/22/20 20:44 Blood - Venous Blood Culture - Preliminary No growth after 48 hours. 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 Patient with acute hypoxic respiraotory failure due to covid 19 infection with marked oxygen requirnement and further complicated renal failure, concern for PE, and unstable cardiac status with long sinus pauses that under ideal situation would require pace maker insertion. He has been on all the right meds (steroid, REmdesevir, Abx and heparin for possible PE--as imaging not able to be done due tenous respiratory status. I spoke to his brother Gold and updated him of his clincal course, treatment options and need to escalation of care including transfer to ICU and pace maker insertion. Lc stated that these would not be in the best of interest of the patientand rather recommend DNR, DNI and comfort measure. Brother Gold was in the hospital to visit him and completed the MOLST form. MARV Viveros present during the conversation. Dr. Ramirez also had similar conversation with brother and arrived at the same conclusin. Health care proxy understand all meds will be discontinued except those needed for comfort such as morphine, ativan,
[2020-09-27] MEDS: LORazepam 0.5 MG TABLET 1 MG SUBLINGUAL (16:47)
[2020-09-28] VITALS: RESP 16
[2020-09-28 00:17] VITALS: PULSE 65; O2SAT 98
[2020-09-28] MEDS: 0.9 % Sodium Chloride Flush 3 ML SYRINGE IVFLUSH ×2 (01:03→07:41)
[2020-09-28] MEDS: Morphine Sulfate 2 MG/ML CARTRIDGE IVPUSH ×2 (03:46→07:40)
[2020-09-28 03:57] VITALS: RESP 16
[2020-09-28 03:58] VITALS: PULSE 73; O2SAT 90
[2020-09-28 08:00] VITALS: PULSE 60
--- NOTE | 2020-09-28 08:27 | PM.DDS ---
Discharge Sum: Prov Provider Primary care physician: Unknown Physician Discharge Sum: Diag PCOD Cause of : Acute respiratory failure due to COVID-19 Contributing Factors (1) Pneumonia due to COVID-19 virus: (2) Acute respiratory failure with hypoxia: (3) Elevated troponin: (4) Sinus pause: (5) MARVIN (acute kidney injury): (6) Hypernatremia: Discharge Sum: Summary Date and Time Date of admission: 09/23/20 01:12 Date of : 09/28/20 Time of : 08:20 Summary Details: 70 year male with history of diabetes, HTN, lymphadema, HLD admitted for acute hypoxic respiratory failure due to covid 19 pneumonia with complication of acute renal failure, hypernatremia, elevated troponin. He was treated aggresively steroid, antiboitics, and oxygen by high flow and non rebreather, was evaluated by Pulmonology and cardiology for elevated troponin which was attributed to severe hypoxia. During hospitallization, he had episodes of bradycardia with sinus pauses of up to 11 second, unfortunately despite all available treatment, he continues to declinne and on 09/27/20 during a discussion with brother Gold (Health Care proxy) a decision was made not to purusit agresive treatment or intervention and rather to continue care with comfort measures only and on 09/28/20 at 8:20 am he for complication of acute respiratory with hyopxia due to covid-19 pneumonia. Brother notified Additional Data Confirmation of as documented by pronouncing clinician: no pulse, no respirations, no heart sounds and pupils fixed and dilated Family: contacted Attending/PCP notified?: Yes Attending physician: Andrez Burk MD Was code activated?: No Autopsy requested?: No driver license examiner notified?: No Advance directives: Yes Hospice patient?: No
--- NOTE | 2020-09-28 09:37 | PC.NURSE ---
0740 patient o2 sat 65 on room air. high flow o2 off and on bed. medicated with 2 mg morphine, physician in to see patient. 0800, patient found not breathing, no apical pulse. notified. kelvin vasquez called and notified of passing. [facility] called. declined by [place]. ref [id number]
== END 2020-09-28 11:18 | disposition expired | DRG 177 ==
LOC: HO.ED 09-23 01:31 → HO.EDOVER 09-23 01:36 → HO.IMC 09-23 10:56
PROVIDERS: Internal Medicine; Admitting Provider Hospitalist; Emergency Provider Physician Assistant; PCP Internal Medicine; Visit Provider Internal Medicine
DX: U07.1 COVID-19 (principal); J12.82 Pneumonia due to coronavirus disease 2019; J80 Acute respiratory distress syndrome; K56.7 Ileus, unspecified; E87.2 Acidosis; N17.9 Acute kidney failure, unspecified; E87.0 Hyperosmolality and hypernatremia; I10 Essential (primary) hypertension; I49.5 Sick sinus syndrome; R79.89 Other specified abnormal findings of blood chemistry; E11.9 Type 2 diabetes mellitus without complications; E86.0 Dehydration; Z79.82 Long term (current) use of aspirin; Z79.899 Other long term (current) drug therapy; Z66 Do not resuscitate
CPT/HCPCS: 36415; 36600; 71045; 71250; 74176; 80048; 80076; 81001; 82550; 82728; 82805; 82947; 83605; 83615; 83690; 83735; 83880; 84145; 84484; 85025; 85027; 85379; 85610; 85730; 86140; 87040; 93005; 94640; 94644; 96365; 96366; 96368; 96372; 96375; 99285; 99291; J0696; J1100; J1650; J2270; J3490; Q0163